=== PATIENT | male | born 1955 | race Caucasian/White ===

== ENCOUNTER 2022-01-01 11:55 | Outpatient (CLI) | payer MEDICARE, SELFPAY | END 2022-01-01 11:56 | disposition home or self-care (01) | LOC: AMB 01-08 20:08 | PROVIDERS: Visit Provider Family Medicine | DX: R53.1 Weakness (principal) | CPT/HCPCS: A0425; A0427 ==

== ENCOUNTER 2022-01-01 12:52 | Inpatient (IN) | payer MEDICARE, SELFPAY ==
[2022-01-01] VITALS (28 sets, daily range): BP systolic 100–169; BP diastolic 60–111; PULSE 91–161; RESP 15–26; TEMP 36.1–36.7; O2SAT 92–95; BMI 28.7; BMI 24.8
--- NOTE | 2022-01-01 13:17 | ED.NURSE ---
ekg done, shows afib 140's. pt swabbed for covid.
--- NOTE | 2022-01-01 13:23 | CRLHL7_ITS ---
For Patients: As a result of the Cures Act, medical imaging exams and procedure reports are released immediately into your electronic medical record. You may view this report before your referring provider. If you have questions, please contact your health care provider. HISTORY: Fall, pain. TECHNIQUE: AP pelvis and 2 views of the left hip. COMPARISON: 12/02/2020. FINDINGS: There is deformity of the left femoral head-neck junction suggesting sequelae of impacted fracture. This appears unchanged, however, as compared to the prior examination and may reflect sequelae of more remote fracture. There is sclerosis within the left femoral head suggesting avascular necrosis. Mild axial hip joint space narrowing on the left. No right hip joint space narrowing. Degenerative changes within the lower lumbar spine. Surgical clips. Vascular calcifications. IMPRESSION: 1. Deformity of the left femoral head-neck junction suggesting sequelae of prior impacted fracture. No change in this deformity as compared to the prior examination suggesting this may reflect a more remote fracture. There is sclerosis within the left femoral head suggesting avascular necrosis. 2. No definite acute fracture seen on these radiographs. Dictated by Rey Mcclelland MD @ 01/01/2022 2:34:31 PM Dictated by: Rey Mcclelland MD @ 01/01/2022 14:34:37 (Electronically Signed)
--- NOTE | 2022-01-01 13:34 | ED.GENADULT ---
HPI - General Adult General Date Seen: 01/01/22 Chief complaint: Fall/Minor Trauma Stated complaint: Dehydration / ETOH Time Seen by Provider: 01/01/22 13:02 Source: patient History of Present Illness HPI narrative: Patient is a 66-year-old male who says he was sleeping on the couch when he rolled off, landing on the floor. He says he has chronic left hip pain which is slightly worse since the fall. Due to weakness and increased hip pain he was unable to get up by himself. He does live with a fiancee who was home at the time. She was unable to assist him. He denies syncope, remembers the fall. He denies any recent illness. He is noted to be tachycardic here, he has not had any recent palpitations, chest pain or unusual shortness of breath. He does have chronic shortness of breath related to his smoking history. He denies any known history of COPD to me. He does tell me that number of years ago he was on inhalers for his lungs, but says that no one has recommended those to him more recently. He has a chronic cough which is unchanged. He denies any recent vomiting or diarrhea. No black or bloody stools. No fevers. 911 was called to assist him in getting up. He has not walked since his fall. He denies any head injury, no loss of consciousness. Denies any back or neck pain. Says that paramedics did not give him any pain medication and he denies need for any medication now. He normally walks with a walker at home. He does continue to smoke. Regular alcohol use. Related Data Home Medications Medication Instructions Recorded Confirmed No Known Home Medications 01/01/22 01/01/22 Allergies Allergy/AdvReac Type Severity Reaction Status Date / Time No Known Drug Allergies Allergy Verified 01/01/22 13:13 Review of Systems Status of ROS: Reports: 10 or more systems reviewed and unremarkable except as noted in History and below [facility] Social History Smoking Status: Smoker, status unknown How often do you have a drink containing alcohol: 4 or more times a week AUDIT-C Alcohol total score: 4 Non-prescribed substance use: denies use Exam Narrative: Exam Narrative: Vital signs as noted above. In general, an alert, somewhat disheveled and unkempt elderly male. Head: Normocephalic, atraumatic. Eyes: Pupils are equal reactive. Extraocular movements are full. Conjunctivae are normal. ENT: Mucous membranes are moist. Neck: Supple without lymphadenopathy. Nontender to palpation. Heart: Tachycardic and irregular. Lungs: Coarse rales bilaterally, scattered wheezes. Increased work of breathing. Abdomen: Soft and nontender. No organomegaly. Extremities: No significant edema bilaterally. Pulses are difficult to palpate in bilateral dorsalis pedis. Large scar noted in the anterior thigh on the left, he says this is from a skin graft. He has some pain with range of motion of the left hip and tenderness laterally.. The right is nontender with free range of motion. Distal lower extremities are atraumatic, nontender. Bilateral upper extremities are nontender to palpation, atraumatic. Neurologic: Patient is alert and oriented to person and place. Speech is fluent. Face is symmetric. Moves all extremities equally. Affect: Flat. Skin: Warm and dry. Well perfused. Dirty. Const: Vital Signs, click to edit/add: Vital Signs - 24 hr 01/01/22 13:09 01/01/22 14:06 Temperature 98.1 F Pulse Rate [Pulse Oximeter] 144 H 144 H Respiratory Rate 22 22 Blood Pressure [Ri ght Upper Arm] 132/106 H 148/108 H Pulse Oximetry 93 94 Oxygen Delivery Me thod Room Air Room Air Documenting provider has reviewed patient's vital signs: yes Course Course Hospital Course: Patient is maintained on monitor and pulse oximetry. An EKG by my review showed atrial fibrillation with a rapid ventricular response, ventricular rate of 156. An IV was established. I have ordered a L of normal saline, labs are pending. Review of his records shows regular alcohol use, history of left hip fracture in 12, followed by hardware removal in 10/2020. I do not see history previously of relation or flutter. X-ray of the left hip by my review shows chronic abnormalities consistent with his previous fracture. I do not see any suggestion of an acute fracture. The final radiology read is as follows:IMPRESSION: 1. Deformity of the left femoral head-neck junction suggesting sequelae of prior impacted fracture. No change in this deformity as compared to the prior examination suggesting this may reflect a more remote fracture. There is sclerosis within the left femoral head suggesting avascular necrosis. 2. No definite acute fracture seen on these radiographs. Patient's nazanin arrived and provided additional history. He apparently has not had any alcohol for the past she says 63 hours. In fact, his blood alcohol here is less than 0.1. She says that he had been drinking half a L a day, and decided to cut down. Patient agrees with this assessment. Apparently, as of his hip fracture in April of 2020, when he was discharged to rehab, he had been off of alcohol completely. He then was drinking just a small amount a day, and has steadily increased to now drinking again a 0.5 L. 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 She does tell me that he has a history of significant withdrawal symptoms. I did order diltiazem for his AFib with rapid ventricular response, although at the time of my last visit with him he had not yet received that. I have also ordered at this time a mg of Ativan given the additional history that he stop drinking over 2 days ago. I think withdrawal may be playing a part in his hemodynamics. He does not appear significantly tremulous however. He is mentating normally. Other labs notable for white blood cell count of 12, hemoglobin of 16. Platelets are normal. INR is 1. Electrolytes are normal, creatinine is 0.6. Blood sugar is 110. His LFTs are elevated, total bilirubin is 2.4. AST is 107, ALT is 70. CRP is 7.5 and BNP is elevated at 42 40. Troponin is 0.1. This is likely secondary to his rapid AFib, but I have ordered a 2nd troponin for 90 minutes after the 1st, will check for significant changes. Based on his x-ray, I think his hip pain is likely not secondary to new fracture, but will order CT to make sure that there is not a subtle fracture hidden in his degenerative changes. His fiancee also offers the history that he has not had a bath since August, which she says is because he is afraid that he will slip and fall if he gets in the bathtub due to his unsteadiness. All things considered, I think the patient will need admission to the hospital for rate control at a minimum. CT scan of the hip pending. medical staff services coordinator likely needed to assess living situation. Second troponin pending. Response to the initial dose of IV Dilt was slowing of his heart rate to the 90s although it did not persist. I gave him a 2nd dose of IV and ordered a dose of oral diltiazem [address] of the left hip was read as follows: IMPRESSION: 1. Remote healed fracture of the left femoral neck. No acute fracture. 2. Ghost tracks within the left proximal femur related to hardware which has been previously removed. 3. There is avascular necrosis of the left femoral head along with degenerative changes of the left hip. Avascular necrosis consistent with his more chronic pain in the left hip, no acute fracture. I did do a chest x-ray given his elevated BNP. He does not have any evidence of pulmonary edema by my review. Final radiology report is as follows:Cardiac silhouette is top-normal in size, similar to prior. Atherosclerotic aorta is again noted. Faint right lower lung opacity. No pleural effusion or pneumothorax. Impression: Faint right lower lung opacity, differential includes atelectasis or infection. Second troponin is stable at 0.09. Clinically, patient does not suggest symptoms of pneumonia at this time, will defer to inpatient Physician regarding chest x-ray findings. Vital Signs Vital signs: Initial Vital Signs Temperature 98.1 F 01/01/22 13:09 Temperature Source Temporal Artery Scan 01/01/22 13:09 Pulse Rate 144 H 01/01/22 13:09 Respiratory Rate 22 01/01/22 13:09 Blood Pressure 132/106 H 01/01/22 13:09 Blood Pressure Mean 114 01/01/22 13:09 Blood Pressure Position Supine 01/01/22 13:09 Pulse Oximetry 93 01/01/22 13:09 Oxygen Delivery Method 01/01/22 13:09 Vital Signs Temperature 98.1 F 01/01/22 13:09 Pulse Rate 144 H 01/01/22 13:09 Respiratory Rate 22 01/01/22 13:09 Blood Pressure 132/106 H 01/01/22 13:09 Pulse Oximetry 93 01/01/22 13:09 Oxygen Delivery Method 01/01/22 13:09 Temperature 98.1 F 01/01/22 13:09 Pulse Rate 144 H 01/01/22 14:06 Respiratory Rate 22 01/01/22 14:06 Blood Pressure 148/108 H 01/01/22 14:06 Pulse Oximetry 94 01/01/22 14:06 Oxygen Delivery Method 01/01/22 14:06 Medical Decision Making Lab Data Labs: Lab Results 01/01/22 01/01/22 01/01/22 Range/Units 13:18 13:30 13:30 WBC 12.15 H (4.50-11.00) K/uL RBC 4.65 (4.30-5.90) m/uL Hgb 15.9 (13.5-17.5) gm/dL Hct 46.7 (37.0-53.0) % MCV 100 (80-100) fL MCH 34 (26-34) pg MCHC 34 (32-36) gm/dL RDW Coeff of Miko 14.6 (11.5-15.5) % Plt Count 159 (140-440) K/uL Neut % (Auto) 83.6 H (42.0-72.0) % Lymph % (Auto) 6.7 L (20-44) % [place] % (Auto) 9.2 (0.0-11.0) % Eos % (Auto) 0.0 (0.0-7.0) % Baso % (Auto) 0.2 (0.0-3.0) % Neut # (Auto) 10.20 H (1.7-7.0) K/uL Lymph # (Auto) 0.80 L (0.90-2.90) K/uL [place] # (Auto) 1.10 H (0.00-0.90) K/UL Eos # (Auto) 0.00 (0.00-0.50) K/uL Baso # (Auto) 0.00 (0.00-0.30) K/uL Abs Immat Gran (auto) 0.04 (0.00-0.30) K/uL INR (0.91-1.10) Sodium 138 (135-149) mmol/L Potassium 3.8 (3.6-5.1) mmol/L Chloride 103 (96-114) mmol/L Carbon Dioxide 24 (20-32) mmol/L BUN 23 (7-30) mg/dL Creatinine 0.6 (0.5-1.5) mg/dL Estimated Creat Clear 77.39 Estimated GFR 106 ml/min Glucose 110 (60-115) mg/dL Calcium 8.4 (8.4-10.6) mg/dL Total Bilirubin 2.4 H (0.1-1.5) mg/dL Direct Bilirubin 0.8 H (0.0-0.5) mg/dL AST 107 H (12-35) U/L ALT 70 H (4-50) U/L Alkaline Phosphatase 101 (40-150) U/L Troponin I (0.01-0.04) ng/mL C-Reactive Protein 7.5 H (0.5-1.0) mg/dL NT-Pro-B Natriuret Pep (0-125) PG/mL Total Protein 6.4 (6.0-8.3) g/dL Albumin 3.5 (3.3-5.0) g/dL Urine Color (Yellow) Urine Appearance (Clear) Urine pH (5.0-8.5) Ur Specific [place] (1.000-1.030) Urine Protein (Negative) Urine Glucose (UA) (Negative) Urine Ketones (Negative) Urine Blood (Negative) Urine Nitrite (Negative) Urine Bilirubin (Negative) Urine Urobilinogen (0.2-1.0) Ur Leukocyte Esterase (Negative) Urine RBC (0-2) Urine WBC (0-5) Ur Squamous Epith Cells (None-Few) Urine Bacteria (None) Ethyl Alcohol < 0.01 L (0.01-0.03) % SARS-CoV-2 (PCR) Negative SARS-CoV-2 (Negative) 01/01/22 01/01/22 01/01/22 Range/Units 13:30 13:30 15:00 WBC (4.50-11.00) K/uL RBC (4.30-5.90) m/uL Hgb (13.5-17.5) gm/dL Hct (37.0-53.0) % MCV (80-100) fL MCH (26-34) pg MCHC (32-36) gm/dL RDW Coeff of Miko (11.5-15.5) % Plt Count (140-440) K/uL Neut % (Auto) (42.0-72.0) % Lymph % (Auto) (20-44) % [place] % (Auto) (0.0-11.0) % Eos % (Auto) (0.0-7.0) % Baso % (Auto) (0.0-3.0) % Neut # (Auto) (1.7-7.0) K/uL Lymph # (Auto) (0.90-2.90) K/uL [place] # (Auto) (0.00-0.90) K/UL Eos # (Auto) (0.00-0.50) K/uL Baso # (Auto) (0.00-0.30) K/uL Abs Immat Gran (auto) (0.00-0.30) K/uL INR 1.02 (0.91-1.10) Sodium (135-149) mmol/L Potassium (3.6-5.1) mmol/L Chloride (96-114) mmol/L Carbon Dioxide (20-32) mmol/L BUN (7-30) mg/dL Creatinine (0.5-1.5) mg/dL Estimated Creat Clear Estimated GFR ml/min Glucose (60-115) mg/dL Calcium (8.4-10.6) mg/dL Total Bilirubin (0.1-1.5) mg/dL Direct Bilirubin (0.0-0.5) mg/dL AST (12-35) U/L ALT (4-50) U/L Alkaline Phosphatase (40-150) U/L Troponin I 0.10 H* 0.09 H* (0.01-0.04) ng/mL C-Reactive Protein (0.5-1.0) mg/dL NT-Pro-B Natriuret Pep 4240 H (0-125) PG/mL Total Protein (6.0-8.3) g/dL Albumin (3.3-5.0) g/dL Urine Color (Yellow) Urine Appearance (Clear) Urine pH (5.0-8.5) Ur Specific [place] (1.000-1.030) Urine Protein (Negative) Urine Glucose (UA) (Negative) Urine Ketones (Negative) Urine Blood (Negative) Urine Nitrite (Negative) Urine Bilirubin (Negative) Urine Urobilinogen (0.2-1.0) Ur Leukocyte Esterase (Negative) Urine RBC (0-2) Urine WBC (0-5) Ur Squamous Epith Cells (None-Few) Urine Bacteria (None) Ethyl Alcohol (0.01-0.03) % SARS-CoV-2 (PCR) (Negative) 01/01/22 Range/Units 15:30 WBC (4.50-11.00) K/uL RBC (4.30-5.90) m/uL Hgb (13.5-17.5) gm/dL Hct (37.0-53.0) % MCV (80-100) fL MCH (26-34) pg MCHC (32-36) gm/dL RDW Coeff of Miko (11.5-15.5) % Plt Count (140-440) K/uL Neut % (Auto) (42.0-72.0) % Lymph % (Auto) (20-44) % [place] % (Auto) (0.0-11.0) % Eos % (Auto) (0.0-7.0) % Baso % (Auto) (0.0-3.0) % Neut # (Auto) (1.7-7.0) K/uL Lymph # (Auto) (0.90-2.90) K/uL [place] # (Auto) (0.00-0.90) K/UL Eos # (Auto) (0.00-0.50) K/uL Baso # (Auto) (0.00-0.30) K/uL Abs Immat Gran (auto) (0.00-0.30) K/uL INR (0.91-1.10) Sodium (135-149) mmol/L Potassium (3.6-5.1) mmol/L Chloride (96-114) mmol/L Carbon Dioxide (20-32) mmol/L BUN (7-30) mg/dL Creatinine (0.5-1.5) mg/dL Estimated Creat Clear Estimated GFR ml/min Glucose (60-115) mg/dL Calcium (8.4-10.6) mg/dL Total Bilirubin (0.1-1.5) mg/dL Direct Bilirubin (0.0-0.5) mg/dL AST (12-35) U/L ALT (4-50) U/L Alkaline Phosphatase (40-150) U/L Troponin I (0.01-0.04) ng/mL C-Reactive Protein (0.5-1.0) mg/dL NT-Pro-B Natriuret Pep (0-125) PG/mL Total Protein (6.0-8.3) g/dL Albumin (3.3-5.0) g/dL Urine Color [place] A (Yellow) Urine Appearance Clear (Clear) Urine pH 6.0 (5.0-8.5) Ur Specific [place] 1.020 (1.000-1.030) Urine Protein 2+ A (Negative) Urine Glucose (UA) Negative (Negative) Urine Ketones 3+ A (Negative) Urine Blood 1+ A (Negative) Urine Nitrite Negative (Negative) Urine Bilirubin 2+ A (Negative) Urine Urobilinogen 4.0 (0.2-1.0) Ur Leukocyte Esterase Negative (Negative) Urine RBC 0-2 (0-2) Urine WBC 0-2 (0-5) Ur Squamous Epith Cells Few (None-Few) Urine Bacteria None (None) Ethyl Alcohol (0.01-0.03) % SARS-CoV-2 (PCR) (Negative) Discharge Plan Discharge Prescriptions: No Action No Known Home Medications
[2022-01-01 13:52] LABS: Basophils Percent Auto 0.2 % (0.0-3.0); Hematocrit 46.7 % (37.0-53.0); Hemoglobin* 15.9 gm/dL (13.5-17.5); Immature Granulocytes Abs Auto 0.04 K/uL (0.00-0.30); Lymphocytes Percent Auto 6.7 % (20-44); Mean Corpuscular HGB Conc 34 gm/dL (32-36); Mean Corpuscular Hemoglobin 34 pg (26-34); Mean Corpuscular Volume 100 fL (80-100); Monocytes Percent Auto 9.2 % (0.0-11.0); Neutrophils Percent Auto 83.6 % (42.0-72.0); Platelet Count* 159 K/uL (140-440); RDW Coefficient of Variation % 14.6 % (11.5-15.5); Red Blood Count 4.65 m/uL (4.30-5.90); White Blood Count* 12.15 K/uL (4.50-11.00)
[2022-01-01 13:56] LABS: Slide Review Reflex No
[2022-01-01 14:11] LABS: Albumin* 3.5 g/dL (3.3-5.0); Chloride* 103 mmol/L (96-114); Potassium* 3.8 mmol/L (3.6-5.1); Sodium* 138 mmol/L (135-149)
[2022-01-01 14:13] LABS: INR 1.02 (0.91-1.10); Prothrombin Time 13.8 Seconds
[2022-01-01 14:14] LABS: Alkaline Phosphatase* 101 U/L (40-150); Aspartate Amino Transferase* 107 U/L (12-35); Bilirubin Direct* 0.8 mg/dL (0.0-0.5); Bilirubin Total* 2.4 mg/dL (0.1-1.5); Blood Urea Nitrogen* 23 mg/dL (7-30); Carbon Dioxide* 24 mmol/L (20-32); Creatinine* 0.6 mg/dL (0.5-1.5); Est. Creatinine Clearance* 77.39; Estimated Glomerular Filt Rate 106 ml/min; Total Protein* 6.4 g/dL (6.0-8.3)
[2022-01-01 14:15] LABS: Alanine Aminotransferase* 70 U/L (4-50); Calcium* 8.4 mg/dL (8.4-10.6); Glucose* 110 mg/dL (60-115)
[2022-01-01 14:17] LABS: C Reactive Protein* 7.5 mg/dL (0.5-1.0)
[2022-01-01 14:18] LABS: Ethanol* < 0.01 % (0.01-0.03)
[2022-01-01 14:23] LABS: NT Pro B Type NatriureticPept* 4240 PG/mL (0-125)
[2022-01-01] MEDS: 0.9 % SODIUM CHLORIDE 1000 ml 1,000 ML IV (14:53)
[2022-01-01] MEDS: dilTIAZem 5 MG/ML inj 15 MG IVP ×2 (14:53→16:20)
--- NOTE | 2022-01-01 14:58 | CRLHL7_ITS ---
For Patients: As a result of the Cures Act, medical imaging exams and procedure reports are released immediately into your electronic medical record. You may view this report before your referring provider. If you have questions, please contact your health care provider. HISTORY: Fall. Pain. TECHNIQUE: Noncontrast CT left hip. COMPARISON: Radiographs 01/01/2022. FINDINGS: There is deformity of the left femoral head-neck junction related to a remote healed fracture. There are several ghost tracks within the left proximal femur related to screws which have been previously removed. Avascular necrosis is noted involving the left femoral head with curvilinear sclerosis. Degenerative changes of the left hip. There is no acute acetabular fracture. The left superior and inferior pubic rami are intact. - On the contralateral right side, there are mild degenerative changes of the hip. 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 Degenerative changes of the sacroiliac joints. IMPRESSION: 1. Remote healed fracture of the left femoral neck. No acute fracture. 2. Ghost tracks within the left proximal femur related to hardware which has been previously removed. 3. There is avascular necrosis of the left femoral head along with degenerative changes of the left hip. Dictated by Rey Mcclelland MD @ 01/01/2022 4:25:32 PM Please note that all CT scans at this facility use dose modulation, iterative reconstruction, and/or weight-based dosing when appropriate to reduce radiation dose to as low as reasonably achievable. Dictated by: Rey Mcclelland MD @ 01/01/2022 16:25:57 (Electronically Signed)
--- NOTE | 2022-01-01 15:11 | CRLHL7_ITS ---
For Patients: As a result of the Cures Act, medical imaging exams and procedure reports are released immediately into your electronic medical record. You may view this report before your referring provider. If you have questions, please contact your health care provider. INDICATION: Shortness of breath TECHNIQUE: Chest 1 view Comparison: 08/20/2021 Findings: Cardiac silhouette is top-normal in size, similar to prior. Atherosclerotic aorta is again noted. Faint right lower lung opacity. No pleural effusion or pneumothorax. Impression: Faint right lower lung opacity, differential includes atelectasis or infection. Dictated by Oumar López MD @ 01/01/2022 4:28:23 PM (Electronically Signed)
[2022-01-01 15:17] LABS: SARS PCR* Negative SARS-CoV-2 (Negative)
[2022-01-01 15:59] LABS: Troponin I* 0.09 ng/mL (0.01-0.04)
[2022-01-01 16:02] LABS: Appearance Urine Clear (Clear); Bilirubin Urine 2+ (Negative); Blood Urine 1+ (Negative); Color Urine Orange (Yellow); Glucose Urine Negative (Negative); Ketones Urine 3+ (Negative); Leukocyte Esterase Urine Negative (Negative); Nitrite Urine Negative (Negative); Protein Urine 2+ (Negative)
[2022-01-01] MEDS: LORazepam 2 MG/ML inj 1 MG IVP (16:20)
[2022-01-01 16:32] LABS: RBC Urine 0-2 (0-2)
[2022-01-01 16:33] LABS: Squamous Epithelial Cell Urine Few (None-Few); WBC Urine 0-2 (0-5)
[2022-01-01] MEDS: dilTIAZem 180 MG CAP (CD) PO (17:18)
--- NOTE | 2022-01-01 17:50 | ED.NURSE ---
1630-Daughter, Mei, updated. Daughter is in route from [place]. 173-Report given to ELENO Murillo, Pt will go to [facility]. Dinner meal tray ordered and will be delivered to [facility]. 174-Pt to [facility] via cart by ELENO Urias.
--- NOTE | 2022-01-01 18:06 | PM.IMHP1 ---
Hospitalist- H&P: HPI History of Present Illness Date Seen: 01/01/22 Chief complaint: Dehydration / ETOH Narrative: Oumar Sands is a 66 year old male who fell off of his couch today although it is difficult to tell how long he was on the floor as pts fiance is not reachable and pt is chronically confused. Pt has been drinking approximately 0.5 L of hard liquor daily for the past 6 months. He has not had any liquor for 63 hours prior to arrival today according to his fiance. Pt was unable to get up after today's fall and his fiance was also unable to get him up. An ambulance was called and the patient was noted to be tachycardic with inability to bear weight on his L hip. Pt had a fall while intoxiated in April of 2020 which resulted in surgery with subsequent removal of hardward in October of 2020. Pt normally walks with a walker but was unable to use his walker today. Upon arrival in the ED. Pt was noted to have atrial fibrillation with a rate of 150 bpm. Pt was treated with IV diltiazem and ativan and his pulse came down into the 90's. Pt's pulse subsequently went back into the 120's which lead to an additional dose of IV diltiazem at 15 mg in the ED with 180 of Diltiazem CD being given. Pt's initial Troponin was 0.1 and follow up 90 minutes later was 0.9. No acute findings were noted on EKG. Pt is not sure how long his heart rate has been fast. Pt describes no chest pain. Pt does chronically smoke cigarrettes and has chronic SOB. Xray of the Left hip is without fracture. CT shows previous fracture with hardward removal and current avascular necrosis. Due to inability to ambulate, new a fib with rvr and inability to care for self, pt subsequently admitted to tele. Review of Systems Status of ROS: Reports: unobtainable due to medical condition [facility] Medical History (Updated 01/01/22 @ 18:52 by Ayden Cook MD) Alcohol abuse Alcoholism Atelectasis Atrial fibrillation with RVR Avascular necrosis of bone of left hip C. difficile colitis Cirrhosis Depression Elevated troponin Hematuria Hidradenitis suppurativa Hip fracture, left Hypertension Left elbow fracture Left fibular fracture Pressure ulcer Skin lesion Thrombocytopenia Tobacco abuse Wernicke-Korsakoff syndrome Surgical History (Updated 01/01/22 @ 18:40 by Basia Vásquez RN) H/O hand surgery H/O hernia repair History of appendectomy History of bowel resection History of skin graft Social History Highest level of school completed/degree received: some college, no degree Smoking Status: Current every day smoker What tobacco products do you use: cigarettes Smoking packs per day: 1.5 Smoking cigarettes per day: 30.0 Years smoked: 40 Smoking pack-years: 60.00 Do you use any of these nicotine containing products: None Second hand tobacco smoke exposure: No How often do you have a drink containing alcohol: 4 or more times a week Alcohol type: hard liquor Alcohol type details: tequila How many standard drinks containing alcohol do you have on a typical day: 1 or 2 How often do you have six or more drinks on one occasion: Weekly AUDIT-C Alcohol total score: 7 Non-prescribed substance use: denies use Caffeine: No service: Yes ([employer]) Meds Home Medications and Allergies Home Medications Medication Instructions Recorded Confirmed Type amlodipine 10 mg tablet mg 01/01/22 History multivitamin 1 tab PO DAILY 01/01/22 01/01/22 History Allergies Allergy/AdvReac Type Severity Reaction Status Date / Time No Known Drug Allergies Allergy Verified 01/01/22 13:13 Exam Narrative: Exam Narrative: EXAM GENERAL: Patient appears chonically disheveled. EYES: No scleral icterus. THYROID: no thyroid nodules or thyromegaly. LYMPH: No supraclavicular or cervical lymphadenopathy. SKIN: Previous incision well healed consistent with previous L hip fracture. Numerous skin graft scars noted on the abd and thighs. Large 3 cm lesion noted on the upper L upper thigh/ perineum Numerous small superficial ulcerations noted in the gluteal cleft. EXT: No dependent lower extremity pedal edema. HEART: Regular rate and rhythm with no murmurs, rubs, or gallops. LUNGS: Clear to auscultation bilaterally with no crackles or wheezes. ABD: Soft, non tender, non distended. PSYCH:Pt overall confused but is able to answer simple questions and shows no focal Neurological defects Const: Vital Signs, click to edit/add: Vital Signs - 24 hr 01/01/22 13:09 01/01/22 14:06 Temperature 98.1 F Pulse Rate [Pulse Oximeter] 144 H 144 H Respiratory Rate 22 22 Blood Pressure [Ri ght Upper Arm] 132/106 H 148/108 H Pulse Oximetry 93 94 Oxygen Delivery Me thod Room Air Room Air Hospitalist - H&P: Result Labs Labs: Short CBC 01/01/22 Range/Units 13:30 WBC 12.15 H (4.50-11.00) K/uL Hgb 15.9 (13.5-17.5) gm/dL Hct 46.7 (37.0-53.0) % Plt Count 159 (140-440) K/uL BMP 01/01/22 13:30 Sodium 138 Potassium 3.8 Chloride 103 Carbon Dioxide 24 BUN 23 Creatinine 0.6 Glucose 110 Calcium 8.4 Cardiac Enzymes 01/01/22 01/01/22 Range/Units 13:30 15:00 Troponin I 0.10 H* 0.09 H* (0.01-0.04) ng/mL Liver Function 01/01/22 Range/Units 13:30 Total Bilirubin 2.4 H (0.1-1.5) mg/dL Direct Bilirubin 0.8 H (0.0-0.5) mg/dL AST 107 H (12-35) U/L ALT 70 H (4-50) U/L Alkaline Phosphatase 101 (40-150) U/L Albumin 3.5 (3.3-5.0) g/dL Urine 01/01/22 Range/Units 15:30 Urine Color [place] A (Yellow) Urine Appearance Clear (Clear) Urine pH 6.0 (5.0-8.5) Ur Specific [place] 1.020 (1.000-1.030) Urine Protein 2+ A (Negative) Urine Glucose (UA) Negative (Negative) ECG Attestation: I personally reviewed and interpreted this ECG as follows: Imaging Chest x-ray: Attestation: I have reviewed the pertinent imaging results. (Atelectasis of Right Lower Lobe vs mild infection) CT scan - pelvis: Attestation: I have reviewed the pertinent imaging results. (CT showed a healed fracture of the femeral head with previous hardware removal. Currently shows avascular necrosis and osteoarthritis. Plain film showed no fractures.) Assessment and Plan Assessment and plan (1) Atrial fibrillation with RVR: Status: Acute Assessment and Plan: Pt has received two IV pushes of Diltiazem 15 mg and has been started on Cardizem CD 180 in the ED. Rate is currently 150. Will start Cardizem drip and try to titrate further cardizem to keep rate under control. Did visit with pharmacy and they approved starting Xarelto 20 mg daily for anticoagulation. Pt placed on Telemetry and will be on CIWA protocol with serial troponins. Repeat BNP in the am as it is 4240. Echocardiogram and TSH ordered. Pt is to be a full code. (2) Avascular necrosis of bone of left hip: Status: Acute Assessment and Plan: Visited with Ortho. Risk factors for developing the avascular necrosis include his alcoholism and smoking. PT/OT as inpt with outpt follow up. May need eventual total hip replacement. (3) Alcohol abuse: Status: Acute Assessment and Plan: CIWA protocol, Banana bag, thiamine and folate. Pt has a history of cirrhosis. Will repeat LFTs in am with consideration of ultrasound. (4) Pressure ulcer: Status: Acute Assessment and Plan: We did clean and treated with emoliant as well as a barrier devise. May need skin care consult. Will update Tdap. We will try to improve his nutrition as well. (5) Skin lesion: Status: Acute Assessment and Plan: This looks like basal or squamous cell carcinoma. Surgery/Dermatology as outpt. (6) Elevated troponin: Status: Acute Assessment and Plan: Will get rate under control and trend. Echo pending (7) Thrombocytopenia: Status: Acute Assessment and Plan: Likely related to chronic ETOH use. Repeat CBC in am. (8) Hematuria: Status: Acute Assessment and Plan: Pt has fallen. Repeat ua prior to discharge. (9) Atelectasis: Status: Acute Assessment and Plan: I don't believe he has pneumonia. Will follow respiratory status as we get his heart rate under control. (10) Tobacco abuse: Status: Acute Assessment and Plan: Nicotine replacement upon request (11) Depression: Status: Acute Assessment and Plan: Pt denies symptoms at this time. (12) Wernicke-Korsakoff syndrome: Status: Acute Assessment and Plan: Banana bag, thiamine and folate (13) Hypertension: Status: Acute Assessment and Plan: Continue Norvasc.
--- NOTE | 2022-01-01 19:22 | PC.NURSE ---
Admission-- Pt admitted to critical care unit. He appears disheveled. He is alert and oriented to person and time, but believed he was in [place]. When informed he was in [place], pt asked, How did I get here? Pt is hypertensive with B/Ps 150s/90s, tachycardic with HR irregular, but as high as 170. Tachypneic with RR 26/28. SPO2 maintained >90% on RA. He c/o some abdominal pain prior to a BM, but denied any other pain. He has had 1 liquid partially incontinent BM since arrival. Coccyx is excoriated and raw with several open areas noted. Area was cleansed, a Mepilex and barrier cream were applied. Redness and a sore were also noted in left side of groin. Telemetry shows a fib with RVR. is aware. Pt is a poor historian and this nurse is unsure how accurate his statements are. Report to ELENO Carlisle.
[2022-01-01] MEDS: dilTIAZem HCL 125 MG in 0.9 % SODIUM CHLORIDE 100 ml 100 ML 15 MG IVPB (19:56)
[2022-01-01] MEDS: LORazepam 2 MG/ML inj IVP ×2 (20:06→23:39)
[2022-01-01 20:07] LABS: Creatine Kinase* 1000 U/L (54-186); Magnesium* 1.5 mg/dL (1.5-2.6)
[2022-01-01] MEDS: 0.9 % SODIUM CHLORIDE 250 ml IV (20:07)
[2022-01-01 20:29] LABS: Troponin I* 0.07 ng/mL (0.01-0.04)
[2022-01-01] MEDS: TETANUS/DIPHTH/PERTUSSIS 0.5 ML SYRINGE IM (21:35)
[2022-01-01] MEDS: RIVAROXABAN 10 MG TABLET 20 MG PO (21:44)
--- NOTE | 2022-01-01 23:57 | PC.NURSE ---
patient requiring 2L O2 NC to keep sats 90%, coarse crackles bilateral base of lungs, wet sounding cough. Dr Cook updated see new orders.
[2022-01-02] VITALS (36 sets, daily range): BP systolic 117–168; BP diastolic 10–156; PULSE 78–106; RESP 18–30; TEMP 35.9–36.6; O2SAT 90–97
[2022-01-02] MEDS: dilTIAZem HCL 125 MG in 0.9 % SODIUM CHLORIDE 100 ml 100 ML 15 MG IVPB (02:56)
[2022-01-02] MEDS: FUROSEMIDE 10 MG/ML inj 20 MG IVP (03:22)
--- NOTE | 2022-01-02 05:44 | PC.NURSE ---
[id number]: patient cooperative with cares, fatigued and spent majority of shift sleeping, no further loose stools this shift, see EMAR for Ativan given and interventions for CIWA scores, tele has shown Afib with initial rate in 160-170s, diltiazem drip has brought rate down to 80-100s. patient tolerating drip well, BPs as charted. patient lungs coarse with increased need for O2 to maintain sats, Dr Cook updated, see orders and changes. Strange patent and draining, urine pink. patient has remained on 1-2L O2 via NC entire shift.
[2022-01-02 07:20] LABS: Basophils Absolute Auto 0.04 K/uL (0.00-0.30); Basophils Percent Auto 0.5 % (0.0-3.0); Eosinophils Absolute Auto 0.11 K/uL (0.00-0.50); Eosinophils Percent Auto 1.3 % (0.0-7.0); Hematocrit 41.4 % (37.0-53.0); Hemoglobin* 14.1 gm/dL (13.5-17.5); Immature Granulocytes Abs Auto 0.04 K/uL (0.00-0.30); Lymphocytes Percent Auto 17.8 % (20-44); Mean Corpuscular HGB Conc 34 gm/dL (32-36); Mean Corpuscular Hemoglobin 35 pg (26-34); Mean Corpuscular Volume 102 fL (80-100); Monocytes Percent Auto 9.7 % (0.0-11.0); Neutrophils Absolute Auto 6.02 K/uL (1.7-7.0); Neutrophils Percent Auto 70.2 % (42.0-72.0); Platelet Count* 129 K/uL (140-440); RDW Coefficient of Variation % 14.5 % (11.5-15.5); Red Blood Count 4.08 m/uL (4.30-5.90); White Blood Count* 8.56 K/uL (4.50-11.00)
[2022-01-02 07:22] LABS: Chloride* 104 mmol/L (96-114); Sodium* 137 mmol/L (135-149)
[2022-01-02 07:25] LABS: Alanine Aminotransferase* 53 U/L (4-50); Alkaline Phosphatase* 91 U/L (40-150); Aspartate Amino Transferase* 66 U/L (12-35); Bilirubin Total* 1.5 mg/dL (0.1-1.5); Blood Urea Nitrogen* 26 mg/dL (7-30); Carbon Dioxide* 28 mmol/L (20-32); Glucose* 121 mg/dL (60-115); Total Protein* 5.9 g/dL (6.0-8.3)
[2022-01-02 07:26] LABS: Calcium* 7.8 mg/dL (8.4-10.6)
[2022-01-02 07:33] LABS: NT Pro B Type NatriureticPept* 1900 PG/mL (0-125)
[2022-01-02 07:37] LABS: Troponin I* 0.04 ng/mL (0.01-0.04)
[2022-01-02 07:43] LABS: Slide Review Reflex No
[2022-01-02 07:45] LABS: Potassium* 2.8 mmol/L (3.6-5.1)
[2022-01-02] MEDS: POTASSIUM BICARB 25 MEQ EFFERVESCENT TAB PO ×6 (08:30→21:21)
[2022-01-02] MEDS: RIVAROXABAN 10 MG TABLET 20 MG PO (08:31)
[2022-01-02] MEDS: dilTIAZem 240 MG CAP (CD) PO (08:31)
[2022-01-02] MEDS: MAGNESIUM OXIDE 400 MG TABLET PO (08:31)
[2022-01-02] MEDS: SODIUM CHLORIDE 0.9 % (FLUSH) 10 ML SYRINGE 5 ML IVF ×2 (08:31→22:04)
[2022-01-02] MEDS: ACETAMINOPHEN 325 MG TABLET 650 MG PO ×2 (08:31→17:46)
[2022-01-02 09:15] LABS: Creatinine* 0.6 mg/dL (0.5-1.5); Est. Creatinine Clearance* 76.35; Estimated Glomerular Filt Rate 106 ml/min
[2022-01-02] MEDS: LORazepam 2 MG/ML inj IVP ×2 (10:04→22:03)
[2022-01-02 10:52] LABS: Creatine Kinase* 528 U/L (54-186)
[2022-01-02] MEDS: dilTIAZem HCL 125 MG in 0.9 % SODIUM CHLORIDE 100 ml 100 ML 10 MG IVPB (12:12)
[2022-01-02] MEDS: 0.9 % SODIUM CHLORIDE 1000 ml 1,000 ML 125 ML IV ×2 (13:03→21:20)
[2022-01-02 14:25] LABS: Potassium* 2.9 mmol/L (3.6-5.1)
--- NOTE | 2022-01-02 15:53 | P.IMPN_ITS ---
Progress Note: A&P Assessment and plan (1) Atrial fibrillation with RVR: Status: Acute Assessment and Plan: Patient has been on Cardizem drip overnight and has started oral Cardizem this morning. Rate is improving now on oral Cardizem with drip. Weaning down on drip. Patient started Xarelto last night for anticoagulation. Duration of atrial fibrillation is unknown, but likely longer than a few days. Outpatient antihypertensive, Norvasc, was held so that we could use Cardizem for rate control. TSH is within normal limits. (2) Alcohol withdrawal: Status: Acute Assessment and Plan: Continue CIWA protocol. He got a banana bag, thiamine, and folate last night. It appears that he is going through some withdrawals today, although mild at this time. (3) Alcohol abuse: Status: Acute (4) Rhabdomyolysis: Status: Acute Assessment and Plan: CK still elevated this morning. Restart IV fluids. Monitor volume status. Recheck CK in the morning. (5) Elevated troponin: Problem details: peak 0.1 Status: Acute Assessment and Plan: Elevated troponin likely secondary to atrial fibrillation. Improving. (6) Avascular necrosis of bone of left hip: Status: Chronic (7) Skin lesion: Problem details: groin Status: Acute Assessment and Plan: Groin lesion. Check RPR for possibility of syphilis chancre. Outpatient follow-up with Dermatology or surgery for biopsy. (8) Atelectasis: Status: Acute Assessment and Plan: Start incentive spirometry. (9) Thrombocytopenia: Status: Acute Assessment and Plan: Suspect related to alcohol abuse. Monitor closely especially since patient will be on Xarelto. (10) Hematuria: Status: Acute Assessment and Plan: Hematuria possibly related to recent fall. Recheck UA in a few days, especially since patient be on Xarelto now. Subjective Time Seen by Provider: 11:20 Date Seen: 01/02/22 Interval history: When I went to see the patient this morning, he was getting an echocardiogram, so I came back little later. After the echocardiogram he was lying in the room with a pillow over part of his face. I asked him about this and he said he was sensitive to light and had a little bit of a headache. He mumbled and spoke wit h very few words, but when I asked him to speak up more he did. He also complained of mild low substernal chest pain. He notes this has been going on a while. The nurses told me that he has a round lesion in his left groin. Making multiple sexually inappropriate comments to multiple staff members. Exam Const: Vital Signs, click to edit/add: Vital Signs - 24 hr 01/01/22 18:01 01/01/22 16:30 01/01/22 17:21 Temperature 98.1 F Pulse Rate Pulse Rate [Left R adial] 131 H Pulse Rate [Pulse Oximeter] 115 H 151 H Respiratory Rate 26 H 20 23 Blood Pressure [Le ft Arm] 146/108 H Blood Pressure [Ri ght Upper Arm] 159/110 H 140/87 H Pulse Oximetry 94 94 94 Oxygen Delivery Me thod Room Air Room Air Oxygen Flow Rate 01/01/22 17:30 01/01/22 19:21 01/01/22 20:15 Temperature 97.5 F L 97 F L Pulse Rate Pulse Rate [Left R adial] 160 H 115 H Pulse Rate [Pulse Oximeter] 161 H Respiratory Rate 20 26 H 22 Blood Pressure [Le ft Arm] 169/110 H 100/85 Blood Pressure [Ri ght Upper Arm] 132/99 H Pulse Oximetry 93 94 94 Oxygen Delivery Me thod Room Air Room Air Nasal Cannula Oxygen Flow Rate 1 01/01/22 19:13 01/01/22 20:21 01/01/22 19:12 Temperature 97 F L 97 F L Pulse Rate 160 H Pulse Rate [Left R adial] 120 H 91 Pulse Rate [Pulse Oximeter] Respiratory Rate 18 18 Blood Pressure [Le ft Arm] 127/69 126/77 Blood Pressure [Ri ght Upper Arm] Pulse Oximetry 92 92 Oxygen Delivery Me thod Nasal Cannula Nasal Cannula Oxygen Flow Rate 1 1 01/01/22 20:31 01/01/22 20:42 01/01/22 21:00 Temperature 97 F L 97 F L Pulse Rate Pulse Rate [Left R adial] 112 H 102 H Pulse Rate [Pulse Oximeter] Respiratory Rate 16 20 Blood Pressure [Le ft Arm] 116/81 134/83 Blood Pressure [Ri ght Upper Arm] Pulse Oximetry 92 92 Oxygen Delivery Me thod Nasal Cannula Nasal Cannula Nasal Cannula Oxygen Flow Rate 1 1 1 01/01/22 22:00 01/01/22 22:41 01/01/22 19:00 Temperature 97 F L 97 F L Pulse Rate Pulse Rate [Left R adial] 114 H 107 H 122 H Pulse Rate [Pulse Oximeter] Respiratory Rate 20 24 Blood Pressure [Le ft Arm] 134/83 127/87 147/111 H Blood Pressure [Ri ght Upper Arm] Pulse Oximetry 92 95 Oxygen Delivery Me thod Nasal Cannula Room Air Oxygen Flow Rate 1 01/01/22 19:30 01/01/22 19:45 01/01/22 20:00 Temperature 97 F L Pulse Rate Pulse Rate [Left R adial] 132 H 145 H 91 Pulse Rate [Pulse Oximeter] Respiratory Rate 24 24 Blood Pressure [Le ft Arm] 169/110 H 138/60 101/85 Blood Pressure [Ri ght Upper Arm] Pulse Oximetry 92 92 Oxygen Delivery Me thod Room Air Nasal Cannula Oxygen Flow Rate 01/01/22 20:05 01/01/22 20:10 01/01/22 20:30 Temperature Pulse Rate Pulse Rate [Left R adial] 94 116 H 103 H Pulse Rate [Pulse Oximeter] Respiratory Rate Blood Pressure [Le ft Arm] 126/77 116/81 119/89 Blood Pressure [Ri ght Upper Arm] Pulse Oximetry Oxygen Delivery Me thod Oxygen Flow Rate 01/01/22 21:30 01/01/22 21:45 01/01/22 23:00 Temperature 97.5 F L Pulse Rate Pulse Rate [Left R adial] 100 105 H 111 H Pulse Rate [Pulse Oximeter] Respiratory Rate 20 Blood Pressure [Le ft Arm] 118/81 134/83 137/96 H Blood Pressure [Ri ght Upper Arm] Pulse Oximetry 93 Oxygen Delivery Me thod Nasal Cannula Oxygen Flow Rate 2 01/01/22 22:56 01/01/22 23:40 01/02/22 00:00 Temperature 98 F 98 F Pulse Rate Pulse Rate [Left R adial] 117 H 104 H Pulse Rate [Pulse Oximeter] Respiratory Rate 22 20 20 Blood Pressure [Le ft Arm] 137/96 H 122/86 Blood Pressure [Ri ght Upper Arm] Pulse Oximetry 93 95 92 Oxygen Delivery Me thod Nasal Cannula Nasal Cannula Nasal Cannula Oxygen Flow Rate 2 2 2 01/02/22 01:00 01/02/22 02:00 01/02/22 03:00 Temperature 97 F L 97.6 F 97 F L Pulse Rate Pulse Rate [Left R adial] 95 97 99 Pulse Rate [Pulse Oximeter] Respiratory Rate 20 20 20 Blood Pressure [Le ft Arm] 121/80 128/80 121/82 Blood Pressure [Ri ght Upper Arm] Pulse Oximetry 91 91 92 Oxygen Delivery Me thod Nasal Cannula Nasal Cannula Nasal Cannula Oxygen Flow Rate 2 2 2 01/02/22 04:00 01/02/22 05:00 01/02/22 06:00 Temperature 97.6 F Pulse Rate Pulse Rate [Left R adial] 97 83 90 Pulse Rate [Pulse Oximeter] Respiratory Rate 20 20 20 Blood Pressure [Le ft Arm] 132/93 H 123/83 Blood Pressure [Ri ght Upper Arm] Pulse Oximetry 91 91 90 Oxygen Delivery Me thod Nasal Cannula Nasal Cannula Nasal Cannula Oxygen Flow Rate 2 2 1 01/02/22 07:28 01/02/22 07:36 01/02/22 07:39 Temperature 97.8 F 97.8 F Pulse Rate Pulse Rate [Left R adial] 98 98 98 Pulse Rate [Pulse Oximeter] Respiratory Rate 28 H 28 H 28 H Blood Pressure [Le ft Arm] 143/98 H 143/98 H Blood Pressure [Ri ght Upper Arm] Pulse Oximetry 94 94 Oxygen Delivery Me thod Nasal Cannula Nasal Cannula Oxygen Flow Rate 2 2 01/02/22 08:40 01/02/22 09:54 01/02/22 09:55 Temperature 97.9 F 97.9 F Pulse Rate Pulse Rate [Left R adial] 106 H 86 Pulse Rate [Pulse Oximeter] Respiratory Rate 28 H 24 Blood Pressure [Le ft Arm] 147/10 H 168/156 H Blood Pressure [Ri ght Upper Arm] Pulse Oximetry 94 92 Oxygen Delivery Me thod Nasal Cannula Nasal Cannula Oxygen Flow Rate 2 2 01/02/22 09:56 01/02/22 10:07 01/02/22 11:07 Temperature 97.9 F 97.9 F 97.4 F L Pulse Rate Pulse Rate [Left R adial] 86 84 105 H Pulse Rate [Pulse Oximeter] Respiratory Rate 24 22 28 H Blood Pressure [Le ft Arm] 168/156 H 122/87 117/66 Blood Pressure [Ri ght Upper Arm] Pulse Oximetry 92 93 93 Oxygen Delivery Me thod Nasal Cannula Nasal Cannula Nasal Cannula Oxygen Flow Rate 2 2 2 01/02/22 11:09 01/02/22 11:39 01/02/22 12:10 Temperature 97.4 F L 96.6 F L Pulse Rate Pulse Rate [Left R adial] 105 H 105 H 89 Pulse Rate [Pulse Oximeter] Respiratory Rate 28 H 28 H 20 Blood Pressure [Le ft Arm] 117/66 139/74 Blood Pressure [Ri ght Upper Arm] Pulse Oximetry 93 93 Oxygen Delivery Me thod Nasal Cannula Nasal Cannula Oxygen Flow Rate 2 2 01/02/22 12:11 01/02/22 13:04 01/02/22 13:07 Temperature 96.6 F L 96.6 F L Pulse Rate Pulse Rate [Left R adial] 89 82 82 Pulse Rate [Pulse Oximeter] Respiratory Rate 20 20 20 Blood Pressure [Le ft Arm] 139/74 129/75 129/75 Blood Pressure [Ri ght Upper Arm] Pulse Oximetry 93 93 93 Oxygen Delivery Me thod Nasal Cannula Nasal Cannula Nasal Cannula Oxygen Flow Rate 2 2 2 01/02/22 07:17 01/02/22 14:00 01/02/22 14:23 Temperature 96.6 F L Pulse Rate 90 Pulse Rate [Left R adial] 79 79 Pulse Rate [Pulse Oximeter] Respiratory Rate 18 18 Blood Pressure [Le ft Arm] 145/90 H 145/90 H Blood Pressure [Ri ght Upper Arm] Pulse Oximetry 94 94 Oxygen Delivery Me thod Nasal Cannula Nasal Cannula Oxygen Flow Rate 2 2 01/02/22 15:06 Temperature 97.0 F L Pulse Rate Pulse Rate [Left R adial] 82 Pulse Rate [Pulse Oximeter] Respiratory Rate 20 Blood Pressure [Le ft Arm] 157/84 H Blood Pressure [Ri ght Upper Arm] Pulse Oximetry 93 Oxygen Delivery Me thod Nasal Cannula Oxygen Flow Rate 2 Documenting provider has reviewed patient's vital signs: yes Common normals: no apparent distress General appearance: cooperative (Reluctant, but ultimately cooperative) and disheveled Orientation/consciousness: Yes awake, Yes oriented to person and Yes oriented to place Neck & C-Spine: Common normals: no JVD Chest: Chest: no tenderness Resp: Auscultation: crackles Laterality: bilateral at the base (Fine) Cardio: Common normals: no JVD GI: Common normals: Normal to inspection, nondistended, normoactive bowel sounds present, soft to palpation and non-tender Palpation: soft Extremity: Right lower extremity: upper leg Right upper leg: inspection (Well- healed site of skin graft on the right thigh) Other: Multiple abrasions and bruises of various stages of healing on over extremities, especially legs. Neuro: Sensorium/orientation: awake, oriented to person and oriented to place Psych: Appearance: disheveled Mood and affect: flat affect and other (Odd) Labs Labs: Laboratory Results - last 24 hr 01/01/22 01/01/22 01/01/22 15:00 15:30 19:43 WBC RBC Hgb Hct MCV MCH MCHC RDW Coeff of Miko Plt Count Neut % (Auto) Lymph % (Auto) [place] % (Auto) Eos % (Auto) Baso % (Auto) Neut # (Auto) Lymph # (Auto) [place] # (Auto) Eos # (Auto) Baso # (Auto) Abs Immat Gran (auto) Sodium Potassium Chloride Carbon Dioxide BUN Creatinine Estimated Creat Clear Estimated GFR Glucose Calcium Magnesium Total Bilirubin AST ALT Alkaline Phosphatase Total Creatine Kinase Troponin I 0.09 H* NT-Pro-B Natriuret Pep Total Protein Albumin TSH 1.880 Urine Color [place] A Urine Appearance Clear Urine pH 6.0 Ur Specific [place] 1.020 Urine Protein 2+ A Urine Glucose (UA) Negative Urine Ketones 3+ A Urine Blood 1+ A Urine Nitrite Negative Urine Bilirubin 2+ A Urine Urobilinogen 4.0 Ur Leukocyte Esterase Negative Urine RBC 0-2 Urine WBC 0-2 Ur Squamous Epith Cells Few Urine Bacteria None 01/01/22 01/01/22 01/02/22 19:43 19:43 06:50 WBC RBC Hgb Hct MCV MCH MCHC RDW Coeff of Miko Plt Count Neut % (Auto) Lymph % (Auto) [place] % (Auto) Eos % (Auto) Baso % (Auto) Neut # (Auto) Lymph # (Auto) [place] # (Auto) Eos # (Auto) Baso # (Auto) Abs Immat Gran (auto) Sodium 137 Potassium 2.8 L* Chloride 104 Carbon Dioxide 28 BUN 26 Creatinine 0.6 Estimated Creat Clear 76.35 Estimated GFR 106 Glucose 121 H Calcium 7.8 L Magnesium 1.5 Total Bilirubin 1.5 AST 66 H ALT 53 H Alkaline Phosphatase 91 Total Creatine Kinase 1000 H 528 H Troponin I 0.07 H* 0.04 NT-Pro-B Natriuret Pep 1900 H Total Protein 5.9 L Albumin 3.0 L TSH Urine Color Urine Appearance Urine pH Ur Specific [place] Urine Protein Urine Glucose (UA) Urine Ketones Urine Blood Urine Nitrite Urine Bilirubin Urine Urobilinogen Ur Leukocyte Esterase Urine RBC Urine WBC Ur Squamous Epith Cells Urine Bacteria 01/02/22 01/02/22 06:50 14:00 WBC 8.56 RBC 4.08 L Hgb 14.1 Hct 41.4 MCV 102 H MCH 35 H MCHC 34 RDW Coeff of Miko 14.5 Plt Count 129 L Neut % (Auto) 70.2 Lymph % (Auto) 17.8 L [place] % (Auto) 9.7 Eos % (Auto) 1.3 Baso % (Auto) 0.5 Neut # (Auto) 6.02 Lymph # (Auto) 1.50 [place] # (Auto) 0.80 Eos # (Auto) 0.11 Baso # (Auto) 0.04 Abs Immat Gran (auto) 0.04 Sodium Potassium 2.9 L* Chloride Carbon Dioxide BUN Creatinine Estimated Creat Clear Estimated GFR Glucose Calcium Magnesium Total Bilirubin AST ALT Alkaline Phosphatase Total Creatine Kinase Troponin I NT-Pro-B Natriuret Pep Total Protein Albumin TSH Urine Color Urine Appearance Urine pH Ur Specific [place] Urine Protein Urine Glucose (UA) Urine Ketones Urine Blood Urine Nitrite Urine Bilirubin Urine Urobilinogen Ur Leukocyte Esterase Urine RBC Urine WBC Ur Squamous Epith Cells Urine Bacteria
--- NOTE | 2022-01-02 16:09 | PC.NURSE ---
Patient told Occupational Therapist that he would like sex for his birthday. When primary nurse is discussing bathing patient, he has asked/requested she join him in the bathtub. Head Machine Feeder presented patient with patient code of conduct and explained that staff would need to be treated respectfully.
[2022-01-02] MEDS: BACITRACIN OINTMENT BULK TUBE 1 APPLIC TOPICAL (16:31)
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
[2022-01-03] VITALS (15 sets, daily range): BP systolic 119–145; BP diastolic 83–104; PULSE 58–103; RESP 16–22; TEMP 36.1–36.6; O2SAT 93–96
[2022-01-03] MEDS: 0.9 % SODIUM CHLORIDE 1000 ml 1,000 ML 125 ML IV (05:19)
--- NOTE | 2022-01-03 06:11 | PC.NURSE ---
[id number]: patient remained in bed this shift, positioned self from side to side, Strange patent draining tex urine, HR remained A fib 60s-100s. maintains sats 90-93% on RA, CIWAs as charted, Ativan per EMAR. patient at times makes comments to nursing staff such as can I have a hug, you are very attractive last night my dreams were very erotic, I hope I can still get an erection with this catheter in, patient reminded to use appropriate conduct with staff and cooperative when asked to stop making these types of comments to staff.
[2022-01-03 07:19] LABS: Basophils Absolute Auto 0.03 K/uL (0.00-0.30); Basophils Percent Auto 0.4 % (0.0-3.0); Eosinophils Absolute Auto 0.17 K/uL (0.00-0.50); Eosinophils Percent Auto 2.4 % (0.0-7.0); Hemoglobin* 13.1 gm/dL (13.5-17.5); Immature Granulocytes Abs Auto 0.04 K/uL (0.00-0.30); Lymphocytes Percent Auto 19.9 % (20-44); Mean Corpuscular HGB Conc 34 gm/dL (32-36); Mean Corpuscular Hemoglobin 35 pg (26-34); Mean Corpuscular Volume 103 fL (80-100); Monocytes Percent Auto 10.6 % (0.0-11.0); Neutrophils Absolute Auto 4.77 K/uL (1.7-7.0); Neutrophils Percent Auto 66.1 % (42.0-72.0); Platelet Count* 133 K/uL (140-440); RDW Coefficient of Variation % 14.5 % (11.5-15.5); Red Blood Count 3.79 m/uL (4.30-5.90)
[2022-01-03 07:23] LABS: Slide Review Reflex No
[2022-01-03 07:28] LABS: Albumin* 2.7 g/dL (3.3-5.0); Chloride* 105 mmol/L (96-114); Sodium* 137 mmol/L (135-149)
[2022-01-03 07:29] LABS: Potassium* 3.3 mmol/L (3.6-5.1)
[2022-01-03 07:31] LABS: Alanine Aminotransferase* 44 U/L (4-50); Alkaline Phosphatase* 85 U/L (40-150); Aspartate Amino Transferase* 54 U/L (12-35); Bilirubin Total* 0.5 mg/dL (0.1-1.5); Blood Urea Nitrogen* 15 mg/dL (7-30); Calcium* 7.7 mg/dL (8.4-10.6); Carbon Dioxide* 29 mmol/L (20-32); Creatine Kinase* 275 U/L (54-186); Creatinine* 0.5 mg/dL (0.5-1.5); Est. Creatinine Clearance* 76.35; Estimated Glomerular Filt Rate 112 ml/min; Glucose* 178 mg/dL (60-115); Total Protein* 5.5 g/dL (6.0-8.3)
[2022-01-03 07:32] LABS: Magnesium* 1.5 mg/dL (1.5-2.6)
[2022-01-03] MEDS: MAGNESIUM OXIDE 400 MG TABLET PO (08:54)
[2022-01-03] MEDS: RIVAROXABAN 10 MG TABLET 20 MG PO (08:54)
[2022-01-03] MEDS: SODIUM CHLORIDE 0.9 % (FLUSH) 10 ML SYRINGE 5 ML IVF ×2 (08:55→21:28)
[2022-01-03] MEDS: dilTIAZem 240 MG CAP (CD) PO (08:57)
--- NOTE | 2022-01-03 13:44 | PC.SOCIAL ---
Met with pt. to discuss discharge plans. Pt. will need intermediate as he is a 2 person transfer. Pt. prefers placement in [place] but there are no beds available. Pt is not interested in pursuing inpatient CD treatment at [facility]. Pt. was reported as a VA to [facility]. The home is currently not safe for pt. to be at. Met with pt.'s daughter Alina at [phone] who drove here from [place] where she lives. She wants to pursue guardianship with [facility] for pt. and is open to any intermediate locally that will accept pt. and preferable [facility] if guardianship goes through by the time pt. is ready for admission. Alina plans to pursue placement for pt. in [place] once he rehabs if she becomes his guardian. Pt. has been to [facility] in the past. A message was left with [facility] on availability, and pt.'s information has been sent to [facility] and [facility] as they have availability. [facility] in [place] is currently full.
--- NOTE | 2022-01-03 15:34 | PC.SOCIAL ---
Received a phone call from Joya at [facility]. Joya informed that [facility] is declining pt. for admission due to not having a long-term bed.
[2022-01-03] MEDS: POTASSIUM BICARB 25 MEQ EFFERVESCENT TAB PO ×2 (16:57→17:50)
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
--- NOTE | 2022-01-03 20:18 | PC.NURSE ---
shift note: LS with course crkls and wet cough. Pt sats on RA 92-94%. Pt up 1/walker. nancie dc'd intact @ 1030. Pt continent of bladder. Pt has multi abrasions all over body. Pt denies pain. IV patent x2. vss stable. updated pt's daughter via phone this avelino.
[2022-01-03] MEDS: MAG HYDROX/ALUMINUM HYD/SIMETH 30 ML ORAL.SUSP 15 ML PO (22:30)
[2022-01-04] VITALS (10 sets, daily range): BP systolic 134–157; BP diastolic 78–121; PULSE 80–132; RESP 16–26; TEMP 36–36.8; O2SAT 94–98
[2022-01-04] MEDS: OMEPRAZOLE 20 MG CAPSULE DR PO ×2 (00:02→20:53)
[2022-01-04] MEDS: LORazepam 2 MG/ML inj IVP ×2 (00:39→01:41)
[2022-01-04] MEDS: ACETAMINOPHEN 325 MG TABLET 650 MG PO (00:39)
[2022-01-04] MEDS: SODIUM CHLORIDE 0.9 % (FLUSH) 10 ML SYRINGE 5 ML IVF ×2 (00:40→20:54)
--- NOTE | 2022-01-04 06:23 | PC.NURSE ---
Shift Note 23-: Pt cooperative and appreciative with care. HR and respirations elevated at times corresponding to anxiety and compulsivity. Pt up to BR several times throughout the night with copious amounts of unmeasured and incontinent urinary output. CIWA score 13, Ativan administered with little to no effect. Pt calmed after second dose and able to sleep. Pt c/o heartburn at the start of shift, with little to no relief from mediations until Pt drank a Sprite and was able to belch a significant amount.
[2022-01-04] MEDS: RIVAROXABAN 10 MG TABLET 20 MG PO (08:16)
[2022-01-04] MEDS: dilTIAZem 240 MG CAP (CD) PO (08:16)
[2022-01-04] MEDS: MAGNESIUM OXIDE 400 MG TABLET PO (08:16)
[2022-01-04 08:36] LABS: Hemoglobin A1C* 5.11 % (0-5.6)
--- NOTE | 2022-01-04 12:08 | PC.SOCIAL ---
Spoke with [facility] and pt.'s daughter Alina at [phone], the [facility] is not going to pursue guardianship but the daughter is pursuing it on her own with the litigation attorney's office. Guardianship should go through today by 1pm appointing Alina as the guardian. She will bring in the paperwork when it goes through. Alina prefers pt. to discharge to [facility] so he can get PT and OT and chemical dependency treatment as well. A message was left again for [facility] that pt. is medically ready and could discharge today. Still waiting on an acceptance. If [facility] does not accept [facility] is still assessing.
[2022-01-04 12:48] LABS: Rapid Plasma Reagin (RPR) Non Reactive (Non Reactive)
--- NOTE | 2022-01-04 14:32 | PC.SOCIAL ---
[facility] cannot accept pt. due to his insurance being out of network. Nursing Homes in Network: [facility] (no beds), the [facility] and the [facility] [place]. [facility] [phone], fax#[phone] message left and information sent. [facility] [phone], information has been sent to assess. [facility] [phone], -information sent. Message left with the [facility] [phone] and [phone] [facility] location.
--- NOTE | 2022-01-04 15:18 | PC.NURSE ---
PATIENT VOIDING FREQUENTLY AT BEGINNING OF SHIFT AND INCONTINENT AND URINATING ON THE FLOOR. DOES NOT USE CALL LIGHT BUT CHAIR AND BED ALARM ON. PATIENT DENIED PAIN AND STATED REALLY MILD NAUSEA AND TOLERATING REGULAR DIET. UP WITH SBA, WALKER AND GAIT BELT. SLEPT IN SMALL INCREMENTS THROUGHOUT THE DAY.
--- NOTE | 2022-01-04 17:47 | PM.IMPN1 ---
Progress Note: A&P Assessment and plan (1) Atrial fibrillation with RVR: Status: Acute Assessment and Plan: Rate controlled on oral Cardizem. Anticoagulation with Xarelto. (2) Alcohol withdrawal: Status: Acute Assessment and Plan: Little more confused today. Unclear if he is going through withdrawals or if this is part of his more chronic Korsakoff's syndrome. Continue CIWA protocol. (3) Alcohol abuse: Status: Acute (4) Rhabdomyolysis: Status: Acute (5) Elevated troponin: Problem details: peak 0.1 Status: Acute Assessment and Plan: Elevated troponin likely secondary to atrial fibrillation. (6) Avascular necrosis of bone of left hip: Status: Chronic Assessment and Plan: Continue PT and OT. (7) Skin lesion: Problem details: groin Status: Acute Assessment and Plan: Groin lesion. RPR negative. Outpatient follow-up with Dermatology or surgery for biopsy. (8) Atelectasis: Status: Acute Assessment and Plan: Continue incentive spirometry. (9) Thrombocytopenia: Status: Acute Assessment and Plan: Suspect related to alcohol abuse. Recheck in morning (10) Hematuria: Status: Acute Assessment and Plan: Hematuria possibly related to recent fall. Patient now on Xarelto. Repeat urinalysis is pending. 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 Persistent tremor. Status: Acute Assessment and Plan: Emergency guardianship in process. Subjective Time Seen by Provider: 11:14 Date Seen: 01/04/22 Interval history: When I walked in, I introduced myself as I do every day, and Oumar asked me why I had to see him today. I told him that I see every patient in the hospital every day and he said he still did not understand why had to see him. He did allow me to examine him. He denied any concerns. Exam Narrative: Exam Narrative: General: No acute distress. Awake, alert, oriented to self and place. No pallor. Oropharynx: Clear. Mucous membranes moist. Cardiovascular: Irregularly irregular. No murmurs, gallops, or rubs. Respiratory: Clear to auscultation bilaterally. No wheezes or crackles. Abdomen: Bowel sounds present. Soft, nondistended, nontender. Const: Vital Signs, click to edit/add: Vital Signs - 24 hr 01/03/22 19:00 01/03/22 20:00 01/03/22 23:00 Temperature 97.6 F 97.6 F Pulse Rate 103 H Pulse Rate [Left R adial] 86 86 Respiratory Rate 18 18 Blood Pressure [Le ft Arm] 119/85 119/85 Pulse Oximetry 95 95 Oxygen Delivery Me thod Room Air Room Air Oxygen Flow Rate 2 01/03/22 23:00 01/03/22 23:00 01/04/22 00:00 Temperature 97.3 F L 97.3 F L Pulse Rate Pulse Rate [Left R adial] 95 95 103 H Respiratory Rate 22 Blood Pressure [Le ft Arm] 139/86 139/86 Pulse Oximetry 96 96 Oxygen Delivery Me thod Room Air Oxygen Flow Rate 01/04/22 01:39 01/04/22 03:05 01/04/22 05:00 Temperature 97.6 F 97.6 F 97.6 F Pulse Rate Pulse Rate [Left R adial] 132 H 105 H 84 Respiratory Rate 20 26 H 20 Blood Pressure [Le ft Arm] 139/121 H 150/94 H 150/94 H Pulse Oximetry 95 97 97 Oxygen Delivery Me thod Room Air Room Air Room Air Oxygen Flow Rate 01/04/22 07:34 01/04/22 08:00 01/04/22 08:00 Temperature 97.3 F L Pulse Rate 84 Pulse Rate [Left R adial] 84 100 Respiratory Rate 20 20 Blood Pressure [Le ft Arm] 152/109 H Pulse Oximetry 97 Oxygen Delivery Me thod Room Air Oxygen Flow Rate 01/04/22 08:00 01/04/22 12:00 01/04/22 12:00 Temperature 97.3 F L 98.2 F 98.2 F Pulse Rate Pulse Rate [Left R adial] 100 80 80 Respiratory Rate 20 18 18 Blood Pressure [Le ft Arm] 152/109 H 157/105 H 157/105 H Pulse Oximetry 97 97 97 Oxygen Delivery Me thod Room Air Room Air Room Air Oxygen Flow Rate 01/04/22 17:10 Temperature 96.8 F L Pulse Rate Pulse Rate [Left R adial] 88 Respiratory Rate 16 Blood Pressure [Le ft Arm] 134/78 Pulse Oximetry 94 Oxygen Delivery Me thod Room Air Oxygen Flow Rate Documenting provider has reviewed patient's vital signs: yes Labs Labs: Laboratory Results - last 24 hr 01/03/22 01/04/22 06:45 07:20 Hemoglobin A1c 5.11 RPR Screen Non Reactive
[2022-01-04 19:17] LABS: Appearance Urine Clear (Clear); Bilirubin Urine Negative (Negative); Blood Urine Negative (Negative); Color Urine Yellow (Yellow); Glucose Urine Negative (Negative); Ketones Urine Negative (Negative); Leukocyte Esterase Urine Negative (Negative); Nitrite Urine Negative (Negative); Protein Urine Negative (Negative); Specific Gravity Urine 1.015 (1.000-1.030); Urobilinogen Urine 0.2 (0.2-1.0); pH Urine 7.5 (5.0-8.5)
--- NOTE | 2022-01-04 22:40 | PC.NURSE ---
Shift [id number]- Patient seems to nap on and off throughout shift. He is up to chair for supper and some of the evening. He denies pain. Rather than use call light, he sets of chair and bed alarms, often due to needing to use bathroom. He is voiding often and incontinent often. Appetite is intact.
[2022-01-05 03:00] VITALS: BP 157/87; PULSE 85; RESP 16; TEMP 36.5; O2SAT 95
--- NOTE | 2022-01-05 06:05 | PC.NURSE ---
Shift Note -: Pt pleasant and cooperative, VSS, afebrile, LS clear, BS active. Pt up to BR several times throughout the night soaking brief insert each time as well as urinating in the toilet. Pt does not use call light appropriately, setting off the bed alarm and found up walking in the room each time he needs the BR. Pt denies pain. pt removed his PIV dressing in his left hand during the night partially pulling out the catheter, PIV was removed from that site and replaced in the left forearm.
[2022-01-05 07:00] VITALS: BP 149/94; PULSE 96; RESP 20; TEMP 36.6; O2SAT 99
[2022-01-05 07:13] LABS: Basophils Absolute Auto 0.05 K/uL (0.00-0.30); Basophils Percent Auto 0.7 % (0.0-3.0); Eosinophils Absolute Auto 0.19 K/uL (0.00-0.50); Eosinophils Percent Auto 2.6 % (0.0-7.0); Hematocrit 38.9 % (37.0-53.0); Hemoglobin* 13.3 gm/dL (13.5-17.5); Immature Granulocytes Abs Auto 0.07 K/uL (0.00-0.30); Lymphocytes Percent Auto 19.7 % (20-44); Mean Corpuscular HGB Conc 34 gm/dL (32-36); Mean Corpuscular Hemoglobin 35 pg (26-34); Mean Corpuscular Volume 103 fL (80-100); Monocytes Percent Auto 14.3 % (0.0-11.0); Neutrophils Absolute Auto 4.52 K/uL (1.7-7.0); Neutrophils Percent Auto 61.7 % (42.0-72.0); Platelet Count* 187 K/uL (140-440); RDW Coefficient of Variation % 14.3 % (11.5-15.5); Red Blood Count 3.79 m/uL (4.30-5.90); White Blood Count* 7.32 K/uL (4.50-11.00)
[2022-01-05 07:31] LABS: Slide Review Reflex No
[2022-01-05 07:32] LABS: Chloride* 103 mmol/L (96-114); Potassium* 3.3 mmol/L (3.6-5.1); Sodium* 139 mmol/L (135-149)
[2022-01-05 07:35] LABS: Blood Urea Nitrogen* 11 mg/dL (7-30); Carbon Dioxide* 30 mmol/L (20-32); Creatine Kinase* 88 U/L (54-186); Creatinine* 0.5 mg/dL (0.5-1.5); Est. Creatinine Clearance* 76.35; Estimated Glomerular Filt Rate 112 ml/min; Glucose* 105 mg/dL (60-115)
[2022-01-05 07:36] LABS: Calcium* 8.4 mg/dL (8.4-10.6)
[2022-01-05] MEDS: dilTIAZem 240 MG CAP (CD) PO (08:47)
[2022-01-05] MEDS: MAGNESIUM OXIDE 400 MG TABLET PO (08:47)
[2022-01-05] MEDS: RIVAROXABAN 10 MG TABLET 20 MG PO (08:47)
[2022-01-05] MEDS: SODIUM CHLORIDE 0.9 % (FLUSH) 10 ML SYRINGE 5 ML IVF ×2 (08:48→20:11)
[2022-01-05] MEDS: POTASSIUM BICARB 25 MEQ EFFERVESCENT TAB PO (09:34)
[2022-01-05 11:00] VITALS: BP 158/96; PULSE 95; RESP 22; TEMP 37.1; O2SAT 99
--- NOTE | 2022-01-05 13:43 | PC.SOCIAL ---
Addendum entered by LLIY Brown 01/05/22 14:18: Spoke with pt.'s daughter who states pt. has limited funds and would not be able to afford the out of network pay for [facility]. She picked up an [place] application for pt. today. [facility] called back and they do not have any availability. Addendum entered by LILY Brown 01/05/22 13:59: [facility] has pt[facility]s information but they are full until next week. NO return calls from [facility], [facility] [place] [facility] and [facility]. [facility] can accept pt. but they are out of network with his insurance and pt. would need to pay $150 for days 1-16, $250 for days 17-30 and $0 for days 31-100 pending authorization for more days. A message was left with pt.'s daughter on the coverage with [facility]. Original Note: Inquired on SNF beds according to [facility] in [place] at [phone], [facility] in [place] at [phone], [facility] in [place], [facility] at [phone] and [facility] in [place] at [phone], . Messages left with all facilities. [facility] called back and said they have no openings until next week. [facility] in [place] has an opening and is assessing.
--- NOTE | 2022-01-05 14:54 | PC.NURSE ---
End of Shift: Patient pleasant and cooperative. Patient was alert and oriented to place, person, day, month, year, and off by one day for date. Patient is vitally stable, lungs clear, BS WNL, IV SL. Patient has been incontinent of bowel and bladder, starting after 2pm patient has used the toilet twice to urinate. Patient is 1 assist, walker, gb and has been up in chair for majority of day. Patient tolerating regular and denied pain.
--- NOTE | 2022-01-05 15:28 | PM.IMPN1 ---
Progress Note: A&P Assessment and plan (1) Atrial fibrillation with RVR: Status: Acute Assessment and Plan: Rate controlled on oral Cardizem. Anticoagulation with Xarelto. (2) Alcohol withdrawal: Status: Acute Assessment and Plan: Appears back to baseline again, chronic Korsakoff's syndrome. Stop CIWA tomorrow if scores continue to be low. (3) Alcohol abuse: Status: Acute (4) Rhabdomyolysis: Status: Acute Assessment and Plan: Resolved (5) Elevated troponin: Problem details: peak 0.1 Status: Acute Assessment and Plan: Elevated troponin likely secondary to atrial fibrillation. (6) Avascular necrosis of bone of left hip: Status: Chronic Assessment and Plan: Continue PT and OT. Discharge to SNF when available (7) Skin lesion: Problem details: groin. RPR negative 01/03/2022 Status: Acute Assessment and Plan: Groin lesion. RPR negative. Outpatient follow-up with Dermatology or surgery for biopsy. (8) Atelectasis: Status: Acute Assessment and Plan: Continue incentive spirometry. (9) Thrombocytopenia: Status: Acute Assessment and Plan: Suspect related to alcohol abuse. Resolved. (10) Hematuria: Status: Acute Assessment and Plan: Hematuria possibly related to recent fall. Patient now on Xarelto. Repeat urinalysis is negative, no blood. (11) Cirrhosis: Status: Chronic Assessment and Plan: Recommended complete avoidance of alcohol. 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 Persistent tremor. Status: Acute Assessment and Plan: Emergency guardianship in process. Subjective Time Seen by Provider: 10:00 Date Seen: 01/05/22 Interval history: Wanted to know when he could go home and why he couldn't just go home now. I discussed his need for therapy and rehab and that his home and him being at home would not be safe for him. We discussed how he had fallen at home and was unable to get help, resulting in him being on the floor for a very long time and being confused and lethargic on admission. He did see how this would be an unsafe situation. I also told him that I was waiting for the court to decide his emergency guardianship. Exam Narrative: Exam Narrative: General: No acute distress. Awake, alert, oriented to self and place. No pallor. Oropharynx: Clear. Mucous membranes moist. Cardiovascular: Irregularly irregular. No murmurs, gallops, or rubs. Respiratory: Clear to auscultation bilaterally. No wheezes or crackles. Abdomen: Bowel sounds present. Soft, nondistended, nontender. Extremities: No edema. Const: Vital Signs, click to edit/add: Vital Signs - 24 hr 01/04/22 17:10 01/04/22 19:25 01/04/22 23:00 Temperature 96.8 F L 97.2 F L 97.2 F L Pulse Rate [Left R adial] 88 92 99 Respiratory Rate 16 16 16 Blood Pressure [Le ft Arm] 134/78 140/82 H 143/99 H Pulse Oximetry 94 95 98 Oxygen Delivery Me thod Room Air Room Air Room Air 01/04/22 23:00 01/05/22 03:00 01/05/22 07:00 Temperature 97.7 F 97.9 F Pulse Rate [Left R adial] 99 85 96 Respiratory Rate 16 16 20 Blood Pressure [Le ft Arm] 157/87 H 149/94 H Pulse Oximetry 95 99 Oxygen Delivery Me thod Room Air Room Air 01/05/22 07:00 01/05/22 11:00 Temperature 98.7 F Pulse Rate [Left R adial] 96 95 Respiratory Rate 20 22 Blood Pressure [Le ft Arm] 158/96 H Pulse Oximetry 99 Oxygen Delivery Me thod Room Air Documenting provider has reviewed patient's vital signs: yes Labs Labs: Laboratory Results - last 24 hr 01/04/22 01/05/22 01/05/22 00:15 06:52 06:52 WBC 7.32 RBC 3.79 L Hgb 13.3 L Hct 38.9 MCV 103 H MCH 35 H MCHC 34 RDW Coeff of Miko 14.3 Plt Count 187 Neut % (Auto) 61.7 Lymph % (Auto) 19.7 L [place] % (Auto) 14.3 H Eos % (Auto) 2.6 Baso % (Auto) 0.7 Neut # (Auto) 4.52 Lymph # (Auto) 1.40 [place] # (Auto) 1.00 H Eos # (Auto) 0.19 Baso # (Auto) 0.05 Abs Immat Gran (auto) 0.07 Sodium 139 Potassium 3.3 L Chloride 103 Carbon Dioxide 30 BUN 11 Creatinine 0.5 Estimated Creat Clear 76.35 Estimated GFR 112 Glucose 105 Calcium 8.4 Total Creatine Kinase 88 Urine Color Yellow Urine Appearance Clear Urine pH 7.5 Ur Specific [place] 1.015 Urine Protein Negative Urine Glucose (UA) Negative Urine Ketones Negative Urine Blood Negative Urine Nitrite Negative Urine Bilirubin Negative Urine Urobilinogen 0.2 Ur Leukocyte Esterase Negative
[2022-01-05 15:50] VITALS: BP 135/78; PULSE 77; RESP 20; TEMP 36.9; O2SAT 94
[2022-01-05] MEDS: BACITRACIN OINTMENT BULK TUBE 1 APPLIC TOPICAL (17:23)
--- NOTE | 2022-01-05 18:49 | PC.NURSE ---
End of shift. pt has been tried and sleep. no pain. he got a nicotine inhaler. he is up with and a walker . he is on fall precautions. bed and chair alarms are on. he is eating and drinking and voiding. he has been continent. his daughter was here.
[2022-01-05 19:00] VITALS: BP 149/94; PULSE 97; RESP 20; TEMP 36.3; O2SAT 97
[2022-01-05] MEDS: OMEPRAZOLE 20 MG CAPSULE DR PO (20:11)
[2022-01-05] MEDS: ACETAMINOPHEN 325 MG TABLET 650 MG PO (20:11)
[2022-01-05 23:00] VITALS: BP 139/86; PULSE 93; RESP 20; TEMP 36.4; O2SAT 96
[2022-01-06] VITALS (9 sets, daily range): BP systolic 142–155; BP diastolic 85–91; PULSE 77–99; RESP 20–22; TEMP 36.1–36.9; O2SAT 92–99
[2022-01-06] MEDS: ACETAMINOPHEN 325 MG TABLET 650 MG PO (03:27)
--- NOTE | 2022-01-06 05:41 | PC.NURSE ---
[id number]: Patient cooperative with cares. SBA w/walker. Up frequently to BR to urinate. Continent. Verbalized frustration over POC, stating I want to go home. PRN Tylenol administered x2 for headache.
[2022-01-06] MEDS: MAGNESIUM OXIDE 400 MG TABLET PO (08:43)
[2022-01-06] MEDS: POTASSIUM CHLORIDE 10 MEQ CAPSULE ER 20 MEQ PO ×2 (08:43→17:51)
[2022-01-06] MEDS: dilTIAZem 240 MG CAP (CD) PO (08:43)
[2022-01-06] MEDS: SODIUM CHLORIDE 0.9 % (FLUSH) 10 ML SYRINGE 5 ML IVF ×2 (08:44→20:17)
[2022-01-06] MEDS: RIVAROXABAN 10 MG TABLET 20 MG PO (08:44)
--- NOTE | 2022-01-06 09:28 | PM.IMPN1 ---
Progress Note: A&P Assessment and plan (1) Atrial fibrillation with RVR: Problem details: On Diltiazem for rate control and rivaroxaban for anticoagulation. Status: Acute (2) Alcohol withdrawal: Status: Acute Assessment and Plan: Has not required benzodiazepines in last 48 hours. (3) Alcohol abuse: Status: Acute (4) Rhabdomyolysis: Status: Acute Assessment and Plan: Resolved at this time (5) Elevated troponin: Problem details: peak 0.1, asymptomatic, TTE completed 01/02: 1. Normal LV size, normal wall thickness, normal global systolic function with an estimated EF of 55 - 60%. 2. Basal inferior segment and basal septum segment are abnormal. 3. Right ventricular cavity size is mildly enlarged, global systolic RV function is normal. 4. The aortic valve is trileaflet and sclerotic, no stenosis and no regurgitation. 5. Mildly enlarged left atrium. 6. The ascending aorta is dilated with a maximal diameter of 4.0 cm. Status: Acute Assessment and Plan: Outpatient Cardiology f/u. (6) Thrombocytopenia: Status: Acute Assessment and Plan: Improved with normal platelets at this time. (7) Cirrhosis: Status: Chronic (8) Wernicke-Korsakoff syndrome: Problem details: Altered mental status with lethargy and difficulty speaking on admission that improved after banana bag. Persistent tremor. Daughter has applied for emergency guardianship for placement and dispo planning. Status: Acute Assessment and Plan: Stable, at baseline. (9) Hypokalemia: Status: Acute Assessment and Plan: Continue to replace, follow lytes. Plan Patient is stable at this time, awaiting placement. Chronic conditions as noted above are optimized, continue anticoagulation with rivaroxaban. Will need outpatient cardiology follow-up upon discharge. Appreciate input from PT, OT, and social work regarding dispo planning. Subjective Date Seen: 01/06/22 Interval history: Oumar has no concerns for the hospitalist team this morning. He specifically denies pain or any other concerns. He has not had any elevated CIWA scores for > 24 hours. Exam Narrative: Exam Narrative: GEN: Alert and laying comfortably in bed, speaking in full sentences HEENT: Normal external ears, EOMIs bilaterally CV: Rate controlled atrial fibrillation without concerning murmurs, rubs, or gallops R: LCTA bilaterally without concerning wheezing, rales, or rhonchi Ext: wwp, no concerning edema Skin: Scattered bruising without any other concerning skin lesions on extremities Neuro: Nonfocal Psych: Appropriate Const: Vital Signs, click to edit/add: Vital Signs - 24 hr 01/05/22 11:00 01/05/22 15:50 01/05/22 15:50 Temperature 98.7 F 98.4 F 98.4 F Pulse Rate [Left R adial] 95 77 77 Respiratory Rate 22 20 20 Blood Pressure [Le ft Arm] 158/96 H 135/78 135/78 Pulse Oximetry 99 94 94 Oxygen Delivery Me thod Room Air Room Air Room Air Oxygen Flow Rate 2 01/05/22 15:50 01/05/22 19:00 01/05/22 19:00 Temperature 97.3 F L 97.3 F L Pulse Rate [Left R adial] 77 97 97 Respiratory Rate 20 20 20 Blood Pressure [Le ft Arm] 149/94 H 149/94 H Pulse Oximetry 97 97 Oxygen Delivery Me thod Room Air Room Air Oxygen Flow Rate 2 01/05/22 23:00 01/05/22 23:00 01/05/22 23:00 Temperature 97.5 F L 97.5 F L Pulse Rate [Left R adial] 93 93 93 Respiratory Rate 20 20 Blood Pressure [Le ft Arm] 139/86 139/86 Pulse Oximetry 96 96 Oxygen Delivery Me thod Room Air Room Air Oxygen Flow Rate 01/06/22 02:51 01/06/22 03:00 01/06/22 07:10 Temperature 98.2 F 98.2 F 98.0 F Pulse Rate [Left R adial] 99 99 82 Respiratory Rate 20 20 22 Blood Pressure [Le ft Arm] 147/89 H 147/89 H 155/91 H Pulse Oximetry 96 96 99 Oxygen Delivery Me thod Room Air Room Air Room Air Oxygen Flow Rate 0 01/06/22 07:10 01/06/22 07:10 01/06/22 08:11 Temperature 98.0 F 98.0 F Pulse Rate [Left R adial] 82 82 Respiratory Rate 22 22 Blood Pressure [Le ft Arm] 155/91 H Pulse Oximetry 99 Oxygen Delivery Me thod Room Air Oxygen Flow Rate 0
--- NOTE | 2022-01-06 13:02 | PC.SOCIAL ---
[facility] in [place] declined pt. stating they have been having issues with [facility] not paying for residents they admit with that insurance. [facility] still has a bed and can accept if pt. submits MA application with proof and is eligible for MA. Daughter to arrive around 1 to fill out the MA application and is bringing income proofs.
--- NOTE | 2022-01-06 16:04 | PC.SOCIAL ---
Met with pt.'s daughter Mei at [phone] and filled out MA application and faxed in with income proof to [facility] and [facility] of [place] to review. Waiting for call back from [facility] if they will accept pt. with the MA application and income proof. [facility] is also assessing pt. for short-term rehab. Pt. has [facility] for short-term rehab coverage but would need MA after to stay in a SNF.
--- NOTE | 2022-01-06 18:28 | PC.NURSE ---
End of shift. pt has been pleasant. he has been tired and sleepy/ no pain/ :? Patient cooperative with cares.? SBA w/walker.? Up frequently to BR to urinate.? Continent.? alarms are off. pt is steady with walker and alarms was making him mad. . ? he is eating and drinking and voiding. ?.? his daughter was here.? SL is patent.
[2022-01-06] MEDS: OMEPRAZOLE 20 MG CAPSULE DR PO (20:17)
[2022-01-07] VITALS (9 sets, daily range): BP systolic 130–160; BP diastolic 79–93; PULSE 79–102; RESP 16–20; TEMP 36.1–36.7; O2SAT 94–99
--- NOTE | 2022-01-07 07:02 | PC.NURSE ---
[id number]: Patient pleasant and cooperative. Up independent in room w/walker. Urinary frequency less than previous night. Appeared to rest well during noc. Denies pain. Denies N/V.
[2022-01-07 07:30] LABS: Chloride* 100 mmol/L (96-114); Potassium* 4.2 mmol/L (3.6-5.1); Sodium* 138 mmol/L (135-149)
[2022-01-07 07:33] LABS: Carbon Dioxide* 32 mmol/L (20-32); Creatinine* 0.7 mg/dL (0.5-1.5); Est. Creatinine Clearance* 76.35; Estimated Glomerular Filt Rate 101 ml/min
[2022-01-07 07:34] LABS: Blood Urea Nitrogen* 16 mg/dL (7-30); Calcium* 9.1 mg/dL (8.4-10.6); Glucose* 100 mg/dL (60-115)
--- NOTE | 2022-01-07 08:22 | CRLHL7_ITS ---
For Patients: As a result of the Cures Act, medical imaging exams and procedure reports are released immediately into your electronic medical record. You may view this report before your referring provider. If you have questions, please contact your health care provider. INDICATION: WHEEZING TECHNIQUE: Chest 1 view COMPARISON: 01/01/2022 FINDINGS: Cardiovascular and mediastinum: Mild prominence of the cardiac silhouette with slight tortuosity of the aorta. Vascular calcifications. Lungs and pleural spaces: Lungs are clear. No sign of infiltrate or mass. No sign of pleural effusion. No pneumothorax. Bones and soft tissues: No significant findings. IMPRESSION: No acute findings. Dictated by Oumar Hernandez MD @ 01/07/2022 8:50:24 AM (Electronically Signed)
--- NOTE | 2022-01-07 08:22 | PM.IMPN1 ---
Progress Note: A&P Assessment and plan (1) Atrial fibrillation with RVR: Problem details: On Diltiazem for rate control and Rivaroxaban for anticoagulation. Status: Acute Assessment and Plan: Quiescent. (2) Alcohol abuse: Status: Acute Assessment and Plan: Has completed withdrawal, no elevated CIWA scores for greater than 2 days. Understands importance of alcohol cessation on discharge. (3) Rhabdomyolysis: Status: Acute Assessment and Plan: resolved (4) Elevated troponin: Problem details: peak 0.1, asymptomatic. TTE completed 01/02: 1. Normal LV size, normal wall thickness, normal global systolic function with an estimated EF of 55 - 60%. 2. Basal inferior segment and basal septum segment are abnormal. 3. Right ventricular cavity size is mildly enlarged, global systolic RV function is normal. 4. The aortic valve is trileaflet and sclerotic, no stenosis and no regurgitation. 5. Mildly enlarged left atrium. 6. The ascending aorta is dilated with a maximal diameter of 4.0 cm. Status: Acute Assessment and Plan: Outpatient cardiology follow-up if within goals of care (5) Cirrhosis: Status: Chronic Assessment and Plan: With resultant thrombocytopenia, macrocytic anemia, and elevated AST (6) Wernicke-Korsakoff syndrome: Problem details: Altered mental status with lethargy and difficulty speaking on admission that improved after banana bag. Persistent tremor. Daughter has applied for emergency guardianship for placement and dispo planning. Status: Acute (7) Hypokalemia: Status: Acute Assessment and Plan: Resolved with replacement. (8) Tobacco abuse: Status: Acute Assessment and Plan: Tolerating Nicotine Patch Plan 67-year-old male he above-mentioned comorbidities, admitted after being found down at home for 3 days. Rhabdomyolysis has resolved. Rivaroxaban for prophylaxis. We are currently awaiting placement for patient; daughter recently granted emergency guardianship. Appreciate input from PT, OT, and social work. Time Spent With Patient Total time spent: 25 Subjective Date Seen: 01/07/22 Interval history: Oumar has no concerns for me today; tolerating po intake, no GI or complaints. Specifically denies pain. No concerns from nursing staff. Exam Narrative: Exam Narrative: GEN: Alert and answering questions appropriately welling in bed HEENT: Normal external ears, EOMIs bilaterally, no scleral icterus CV: RRR, No concerning murmurs, rubs, or gallops R: wheezing bilateral apices anteriorly, rhonchi throughout Ext: wwp, no concerning edema Skin: No concerning skin lesions or rashes on exposed skin Neuro: Nonfocal Psych: Appropriate Const: Vital Signs, click to edit/add: Vital Signs - 24 hr 01/06/22 12:14 01/06/22 16:04 01/06/22 16:08 Temperature 97.0 F L 97.5 F L Pulse Rate [Left R adial] 88 88 84 Respiratory Rate 20 20 20 Blood Pressure [Le ft Arm] 142/85 H 155/85 H Pulse Oximetry 97 92 Oxygen Delivery Me thod Room Air Room Air Oxygen Flow Rate 0 0 01/06/22 20:00 01/06/22 23:00 01/07/22 00:00 Temperature 98.4 F 98.1 F Pulse Rate [Left R adial] 77 77 94 Respiratory Rate 20 20 Blood Pressure [Le ft Arm] 147/85 H 143/89 H Pulse Oximetry 98 99 Oxygen Delivery Me thod Room Air Room Air Oxygen Flow Rate 0 01/07/22 04:00 Temperature 98.1 F Pulse Rate [Left R adial] 94 Respiratory Rate 20 Blood Pressure [Le ft Arm] 143/89 H Pulse Oximetry 99 Oxygen Delivery Me thod Room Air Oxygen Flow Rate 0 Labs Labs: Laboratory Results - last 24 hr 01/07/22 06:35 Sodium 138 Potassium 4.2 Chloride 100 Carbon Dioxide 32 BUN 16 Creatinine 0.7 Estimated Creat Clear 76.35 Estimated GFR 101 Glucose 100 Calcium 9.1
[2022-01-07] MEDS: POTASSIUM CHLORIDE 10 MEQ CAPSULE ER 20 MEQ PO (09:41)
[2022-01-07] MEDS: dilTIAZem 240 MG CAP (CD) PO (09:42)
[2022-01-07] MEDS: RIVAROXABAN 10 MG TABLET 20 MG PO (09:42)
[2022-01-07] MEDS: MAGNESIUM OXIDE 400 MG TABLET PO (09:42)
[2022-01-07] MEDS: SODIUM CHLORIDE 0.9 % (FLUSH) 10 ML SYRINGE 5 ML IVF ×2 (09:43→20:32)
--- NOTE | 2022-01-07 11:28 | PC.SOCIAL ---
Received a phone call from Melida in Admissions at [facility]. Melida stated that their team has decided to decline admission to pt due to smoking and drinking concerns.
--- NOTE | 2022-01-07 17:07 | PC.SOCIAL ---
Met with pt's daughter Mei Lozano. Mei is traveling back home today (out of state). Informed Mei that the intake coordinator at [facility] in [place] is not in the office today so we do not have an answer on admission. Informed Mei that that [facility] in [place] declined admitting pt. Provided Mei with a list of SNF in [place]. Provided Mei with pt's social security number (she is guardian) so she can call pt's medical insurance to see what SNF's are contracted through insurance. Mei called this worker back with four SNF's that are contracted through pt's insurance. Mei is mostly interested in [facility] in [place] [facility] phone number [phone]. Mei provided this worker with the fax number to send initial information fax: [phone]. Made a call to [facility] Admissions and was provided a second fax number of [phone]. Sent initial packet to both fax numbers provided. Tania in Admissions will review packet on Monday. Mei stated she is also interested in [facility] shelter in [place] phone number [phone]. Made a phone call to [facility] and left a voicemail for Tamica in Admissions requesting information on whether the facility has an open bed and requesting a fax number to send initial information. Mei (pt's daughter) provided information on [facility] in [place] at phone number [phone]. Made a phone call to [facility] in [place] and left a voicemail in the admissions office requesting information on whether the facility has an open bed and requesting a fax number to send initial information. Mei (pt's daughter) also expressed interest in [facility] in [place]. Made a phone call to [facility] in [place] at [phone]. Left a voicemail in Admissions with Nini. Requested information on whether the facility has an open bed and requested the fax number to send pt initial information for consideration of admission.
--- NOTE | 2022-01-07 18:26 | PC.NURSE ---
End of Shift: Patient pleasant and cooperative. Patient is independent with walker in room. Patient is alert and thought it was today. Patient is vitally stable, lung course/rhonci anterior and posteriorly, BS WNL, IV patent and intact. Patient denies pain. Patient did have one wet brief, otherwise uses the toilet, patient had 2 BM's. Patient tolerating regular diet, had breakfast and a late lunch, dinner currently sitting in room. Patient has been napping majority of day in bed.
[2022-01-07] MEDS: OMEPRAZOLE 20 MG CAPSULE DR PO (20:32)
[2022-01-07] MEDS: ACETAMINOPHEN 325 MG TABLET 650 MG PO (20:32)
[2022-01-08 04:55] VITALS: BP 139/98; PULSE 82; RESP 16; TEMP 36.4; O2SAT 97
--- NOTE | 2022-01-08 04:56 | PC.NURSE ---
VSS RA. C/o abd pain abdomen a little firm but nontender and was given Tylenol. Occ dry cough. Lungs diminished. At 0500 w/VS check had no complaints. Up ad teo in room ind w/cares. Tolerating diet. Declined SCDs previously.
[2022-01-08 07:00] VITALS: BP 147/88; PULSE 87; RESP 20; TEMP 37.1; O2SAT 99
[2022-01-08 07:03] LABS: Basophils Absolute Auto 0.07 K/uL (0.00-0.30); Eosinophils Absolute Auto 0.15 K/uL (0.00-0.50); Hematocrit 42.6 % (37.0-53.0); Hemoglobin* 14.1 gm/dL (13.5-17.5); Immature Granulocytes Abs Auto 0.08 K/uL (0.00-0.30); Lymphocytes Percent Auto 21.8 % (20-44); Mean Corpuscular HGB Conc 33 gm/dL (32-36); Mean Corpuscular Hemoglobin 34 pg (26-34); Mean Corpuscular Volume 104 fL (80-100); Monocytes Percent Auto 18.4 % (0.0-11.0); Neutrophils Percent Auto 55.7 % (42.0-72.0); Platelet Count* 289 K/uL (140-440); Red Blood Count 4.11 m/uL (4.30-5.90); White Blood Count* 7.35 K/uL (4.50-11.00)
[2022-01-08 07:08] LABS: Slide Review Reflex No
[2022-01-08 07:17] LABS: Chloride* 104 mmol/L (96-114); Sodium* 138 mmol/L (135-149)
[2022-01-08 07:18] LABS: Potassium* 3.8 mmol/L (3.6-5.1)
[2022-01-08 07:20] LABS: Blood Urea Nitrogen* 21 mg/dL (7-30); Carbon Dioxide* 27 mmol/L (20-32); Creatinine* 0.8 mg/dL (0.5-1.5); Est. Creatinine Clearance* 76.35; Estimated Glomerular Filt Rate 97 ml/min
[2022-01-08 07:21] LABS: Calcium* 8.8 mg/dL (8.4-10.6); Glucose* 123 mg/dL (60-115)
[2022-01-08 08:00] LABS: Albumin* 3.5 g/dL (3.3-5.0)
[2022-01-08 08:02] LABS: Aspartate Amino Transferase* 42 U/L (12-35)
[2022-01-08] MEDS: dilTIAZem 240 MG CAP (CD) PO (09:13)
[2022-01-08] MEDS: POTASSIUM CHLORIDE 10 MEQ CAPSULE ER 20 MEQ PO (09:13)
[2022-01-08] MEDS: RIVAROXABAN 10 MG TABLET 20 MG PO (09:13)
[2022-01-08] MEDS: MAGNESIUM OXIDE 400 MG TABLET PO (09:13)
[2022-01-08] MEDS: SODIUM CHLORIDE 0.9 % (FLUSH) 10 ML SYRINGE 5 ML IVF ×2 (09:14→20:36)
[2022-01-08 11:00] VITALS: BP 134/73; PULSE 76; RESP 20; TEMP 36.6; O2SAT 99
--- NOTE | 2022-01-08 13:09 | P.IMPN_ITS ---
Progress Note: A&P Assessment and plan (1) Alcoholism: Status: Acute Assessment and Plan: 1. Patient does not seem to comprehend that he has this illness. 2. Seems to be in the pre-contemplative stage of addressing this with intent to take control of his life. (2) Wernicke-Korsakoff syndrome: Problem details: Altered mental status with lethargy and difficulty speaking on admission that improved after banana bag. Persistent tremor. Daughter has applied for emergency guardianship for placement and dispo planning. Status: Acute Assessment and Plan: 1. Will start thiamin. 2. The hope is that this will improve with alcohol consumption cessation, more time, and effort. 3. Patient unaware of the severity and extent of his illness and or incapable of comprehending this at this time. 4. Continues to have high risk for fall. (3) Alcohol withdrawal: Status: Acute Assessment and Plan: 1. No longer actively withdrawing from alcohol. (4) Rhabdomyolysis: Status: Acute Assessment and Plan: 1. Much improved. (5) Hypokalemia: Status: Acute Assessment and Plan: 1. Continue to require potassium supplementation. (6) Hematuria: Status: Acute Assessment and Plan: 1. No longer apparent. (7) Thrombocytopenia: Status: Acute Assessment and Plan: 1. Normalizing at this juncture. 2. Likely related to cirrhosis, portal hypertension, and bone marrow suppression from alcohol exposure. (8) Elevated troponin: Problem details: peak 0.1, asymptomatic. TTE completed 01/02: 1. Normal LV size, normal wall thickness, normal global systolic function with an estimated EF of 55 - 60%. 2. Basal inferior segment and basal septum segment are abnormal. 3. Right ventricular cavity size is mildly enlarged, global systolic RV function is normal. 4. The aortic valve is trileaflet and sclerotic, no stenosis and no regurgitation. 5. Mildly enlarged left atrium. 6. The ascending aorta is dilated with a maximal diameter of 4.0 cm. Status: Acute Assessment and Plan: 1. Could potentially benefit from outpatient stress echocardiogram. (9) Atrial fibrillation with RVR: Problem details: On Diltiazem for rate control and Rivaroxaban for anticoagulation. Status: Acute Assessment and Plan: 1. Better control at this juncture. (10) Tobacco abuse: Status: Acute Assessment and Plan: 1. Pre contemplative regarding possible smoking cessation. (11) Depression: Status: Acute Assessment and Plan: 1. May require additional pharmacologic support. Plan 1. Reviewed my impressions with the patient multiple times. He has difficulty understanding our discussions. This appears to be related to underlying condition. 2. Patient agreeable with above stated plans of care. 3. Patient has no recollection of his daughter being here over the recent days. 4. Undoubtedly for a period of time he will require higher level of care than he has been receiving at home heretofore. We are awaiting a safe disposition plan to be established yet. 5. Continue with other supportive efforts. Time Spent With Patient Total time spent: 40 minutes Subjective Time Seen by Provider: 07:30 Date Seen: 01/08/22 Interval history: 67-year-old man who clearly does not appreciate exactly why he is in the hospital or how he ended up here. He tells me matter of factly that he fell, could not get up, and came to the hospital. He tells me he is not sure why he still here at the hospital. He states he feels better and wants to go home with his fiancee. As I press him with additional questions he adds that he might have been on the floor for 2 days with his fiancee feeding him and providing him with alcohol to drink during that interim of time. He does not seem to find that unusual, telling me that sometimes he moves about by crawling on the floor. He then proceeds to ask me how long he needs to stay in the hospital because he wants to go back home. Denies any chest heaviness, pressure, tightness, or pain. Denies any dyspnea or cough. Denies any syncope or near-syncope. Denies palpitations. Denies nausea or vomiting. States bowel and bladder function are satisfactory. Acknowledges that he has difficulty standing and walking. Exam Narrative: Exam Narrative: When I 1st visit him around 7 in the morning he is sound asleep. I returned 30 minutes later and he is awake. Requires assistance to remove sheets from self and transfer from bed to chair. Uses 2 wheeled walker for safety. Alert, oriented to self, place, and in part to time and situation. He is angry that he is here. He asked me multiple times how long he needs to be in the hospital and when he can return home. I answer similarly every single time indicating to him that we are not in a hurry for him to leave the hospital as much as we are in a hurry to try to help his health become more stable. I review with him how multiple organ systems in his body have become adversely affected by his alcohol consumption and now more recently from being on the floor and not eating or drinking adequately, and how it appears as though he needs fair amount of professional help to care for himself for a period of time, it is unclear to us how long that time frame will be. He wants a more definite answer but I inform him that I am not able to provide him with that information because I literally do not know. Still not able to identify problems and adequately problem solve with safety in mind. Obviously still has amnesia of recent events. Seems totally unaware of the severity and significance of his current condition. Lungs remain clear to auscultation. Heart tones with regular rhythm. Abdomen with active bowel sounds. Palpable pulses upper and lower extremities. Const: Vital Signs, click to edit/add: Vital Signs - 24 hr 01/07/22 15:00 01/07/22 16:00 01/07/22 19:40 Temperature 97.8 F 96.9 F L Pulse Rate [Left R adial] 102 H 102 H 86 Respiratory Rate 20 20 20 Blood Pressure [Le ft Arm] Blood Pressure [Ri ght Arm] 160/93 H 156/93 H Pulse Oximetry 97 99 Oxygen Delivery Me thod Room Air Room Air Oxygen Flow Rate 01/07/22 23:09 01/08/22 04:55 01/08/22 07:00 Temperature 97.3 F L 97.6 F Pulse Rate [Left R adial] 79 82 87 Respiratory Rate 16 16 20 Blood Pressure [Le ft Arm] Blood Pressure [Ri ght Arm] 141/79 H 139/98 H Pulse Oximetry 94 97 Oxygen Delivery Me thod Room Air Room Air Oxygen Flow Rate 01/08/22 07:00 01/08/22 11:00 Temperature 98.7 F 98 F Pulse Rate [Left R adial] 87 76 Respiratory Rate 20 20 Blood Pressure [Le ft Arm] 147/88 H 134/73 Blood Pressure [Ri ght Arm] Pulse Oximetry 99 99 Oxygen Delivery Me thod Room Air Room Air Oxygen Flow Rate 0 Documenting provider has reviewed patient's vital signs: yes Labs Labs: Laboratory Results - last 24 hr 01/08/22 01/08/22 06:35 06:35 WBC 7.35 RBC 4.11 L Hgb 14.1 Hct 42.6 MCV 104 H MCH 34 MCHC 33 RDW Coeff of Miko 14.0 Plt Count 289 Neut % (Auto) 55.7 Lymph % (Auto) 21.8 Bracken % (Auto) 18.4 H Eos % (Auto) 2.0 Baso % (Auto) 1.0 Neut # (Auto) 4.10 Lymph # (Auto) 1.60 Bracken # (Auto) 1.40 H Eos # (Auto) 0.15 Baso # (Auto) 0.07 Abs Immat Gran (auto) 0.08 Sodium 138 Potassium 3.8 Chloride 104 Carbon Dioxide 27 BUN 21 Creatinine 0.8 Estimated Creat Clear 76.35 Estimated GFR 97 Glucose 123 H Calcium 8.8 AST 42 H Albumin 3.5
[2022-01-08 15:00] VITALS: BP 127/74; PULSE 68; RESP 22; TEMP 36.8; O2SAT 96
--- NOTE | 2022-01-08 18:14 | PC.NURSE ---
End of Shift: Patient pleasant and cooperative. Patient vitally stable, lungs clear, BS WNL, IV intact. Patient denies pain, and is independent in room with walker. Patient has a great appetite, urinating, and had 2 BMs. Patient has napped today but has been up in the chair more compared to yesterday.
[2022-01-08] MEDS: ACETAMINOPHEN 325 MG TABLET 650 MG PO (19:27)
[2022-01-08 20:12] VITALS: BP 133/83; PULSE 93; RESP 16; TEMP 35.9; O2SAT 96
[2022-01-08] MEDS: OMEPRAZOLE 20 MG CAPSULE DR PO (20:36)
[2022-01-08 23:17] VITALS: BP 142/78; PULSE 83; RESP 16; TEMP 35.8; O2SAT 97
[2022-01-09 03:04] VITALS: RESP 16
--- NOTE | 2022-01-09 04:20 | PC.NURSE ---
VSS RA. C/o abd pain 11/21 gave Tylenol. No c/o since. Dr. Martinez gave orders for restful vitals and d/c saline lock. Up ad teo in room tolerating diet and ind w/cares.
[2022-01-09 07:00] VITALS: BP 130/83; PULSE 84; RESP 18; TEMP 37.1; O2SAT 98
[2022-01-09] MEDS: MAGNESIUM OXIDE 400 MG TABLET PO (08:36)
[2022-01-09] MEDS: dilTIAZem 240 MG CAP (CD) PO (08:36)
[2022-01-09] MEDS: THIAMINE 100 MG TABLET PO (08:36)
[2022-01-09] MEDS: POTASSIUM CHLORIDE 10 MEQ CAPSULE ER 20 MEQ PO (08:36)
[2022-01-09] MEDS: RIVAROXABAN 10 MG TABLET 20 MG PO (08:39)
--- NOTE | 2022-01-09 09:05 | PM.IMPN1 ---
Progress Note: A&P Assessment and plan (1) Alcoholism: Status: Acute Assessment and Plan: 1. Currently lacks the capacity to meaningfully engage in a chemical dependency program. Little awareness or insight into this disease process at this time. (2) Wernicke-Korsakoff syndrome: Problem details: Altered mental status with lethargy and difficulty speaking on admission that improved after banana bag. Persistent tremor. Daughter has been granted emergency guardianship through the court system for placement and disposition planning. Status: Acute Assessment and Plan: 1. Poor decision-making capacity in regard to safety. 2. Ataxic gait with increased risk for falls. (3) Alcohol withdrawal: Status: Acute Assessment and Plan: 1. This has resolved now. (4) Rhabdomyolysis: Status: Acute Assessment and Plan: 1. This has resolved now. (5) Hypokalemia: Status: Acute Assessment and Plan: 1. This has resolved now. (6) Hematuria: Status: Acute Assessment and Plan: 1. This will warrant additional monitoring and possible assessment. (7) Thrombocytopenia: Status: Acute Assessment and Plan: 1. This has resolved. (8) Elevated troponin: Problem details: peak 0.1, asymptomatic. TTE completed 01/02: 1. Normal LV size, normal wall thickness, normal global systolic function with an estimated EF of 55 - 60%. 2. Basal inferior segment and basal septum segment are abnormal. 3. Right ventricular cavity size is mildly enlarged, global systolic RV function is normal. 4. The aortic valve is trileaflet and sclerotic, no stenosis and no regurgitation. 5. Mildly enlarged left atrium. 6. The ascending aorta is dilated with a maximal diameter of 4.0 cm. Status: Acute Assessment and Plan: 1. Consider outpatient stress echo. (9) Atrial fibrillation with RVR: Problem details: On Diltiazem for rate control and Rivaroxaban for anticoagulation. Status: Acute Assessment and Plan: 1. Rate controlled and anticoagulated. (10) Tobacco abuse: Status: Acute Assessment and Plan: 1. No intention to continue to maintain tobacco free status. (11) Depression: Status: Acute Assessment and Plan: 1. Consider initiation of selective serotonin reuptake inhibitor in outpatient setting. Plan 1. Again attempted to answer patient's question as to when he can go home. Again he does not accept or understand the concerned that we have for his well-being at this juncture. Will continue with efforts to outline our concerns and provide him with hope at the same time. 2. Await safe disposition plan to be worked out with patient's daughter and our social human services assistants. Time Spent With Patient Total time spent: 30 minutes Subjective Time Seen by Provider: 09:05 Date Seen: 01/09/22 Interval history: Hospital Day number 9. 67-year-old man who still does not appreciate exactly why he is in the hospital or how he ended up here. His response to my question about how he is feeling is that he feels fine. I ask him if he has any concerns about his health, he says no. Upon asking him if there is anything I can help him with today and he responds with, when can I go home? ? Denies any chest heaviness, pressure, tightness, or pain. Denies any dyspnea or cough. Denies any syncope or near-syncope. Denies palpitations. Denies nausea or vomiting. Appetite is improving. Tolerating oral intake. States bowel and bladder function are satisfactory. Acknowledges that he has difficulty standing and walking. Doing adequately with use of walker. Exam Narrative: Exam Narrative: Sitting in chair at bedside. Appears comfortable. No acute distress. Alert, oriented to self, place, not so much to time or situation. Able to have superficial conversation easily. No insight as to why he is in the hospital, his current health status, how his health condition has devolved to the current status. Minimizes and dismisses the influence of alcohol on his health condition. Tells me if he goes home with his fiancee that all will be well. Lungs are clear to auscultation today. Heart tones with regular rhythm, normal S1-S2. Abdomen is obese with active bowel sounds, soft, nontender. Extremities without edema. Skin is intact. No apparent tremor today at rest or with intention. Has broad-based gait. Able to transfer with standby assist, although needs some cuing. Const: Vital Signs, click to edit/add: Vital Signs - 24 hr 01/08/22 11:00 01/08/22 15:00 01/08/22 15:00 Temperature 98 F 98.2 F Pulse Rate [Left R adial] 76 68 68 Respiratory Rate 20 22 22 Blood Pressure [Le ft Arm] 134/73 127/74 Blood Pressure [Ri ght Arm] Pulse Oximetry 99 96 Oxygen Delivery Me thod Room Air Room Air 01/08/22 20:12 01/08/22 23:17 01/09/22 03:04 Temperature 96.6 F L 96.4 F L Pulse Rate [Left R adial] 93 83 Respiratory Rate 16 16 16 Blood Pressure [Le ft Arm] 142/78 H Blood Pressure [Ri ght Arm] 133/83 Pulse Oximetry 96 97 Oxygen Delivery Me thod Room Air Room Air Documenting provider has reviewed patient's vital signs: yes
[2022-01-09 11:00] VITALS: BP 129/67; PULSE 79; RESP 18; TEMP 36.6; O2SAT 96
[2022-01-09 15:00] VITALS: BP 113/82; PULSE 86; RESP 20; TEMP 36.8; O2SAT 96
--- NOTE | 2022-01-09 18:46 | PC.NURSE ---
End of Shift: Patient pleasant and cooperative. Patient vitally stable, lungs clear, BS WNL, No IV. Patient independent in room with walker. Patient with great appetite. Patient denies pain and has been napping on and off. Romeo visited for a good amount of time today. Patient urinating and had 2 BMs.
[2022-01-09 19:42] VITALS: BP 126/95; PULSE 66; RESP 20; TEMP 35.9; O2SAT 98
[2022-01-09] MEDS: OMEPRAZOLE 20 MG CAPSULE DR PO (20:33)
[2022-01-09] MEDS: MELATONIN 3 MG TABLET PO (23:00)
[2022-01-09 23:05] VITALS: BP 151/92; PULSE 72; RESP 16; TEMP 36.3; O2SAT 95
[2022-01-10 03:00] VITALS: RESP 16
[2022-01-10 07:00] VITALS: BP 138/79; PULSE 87; RESP 20; TEMP 36.6; O2SAT 99
[2022-01-10 07:03] LABS: Hematocrit 43.8 % (37.0-53.0); Hemoglobin* 14.5 gm/dL (13.5-17.5); Mean Corpuscular HGB Conc 33 gm/dL (32-36); Mean Corpuscular Hemoglobin 35 pg (26-34); Mean Corpuscular Volume 104 fL (80-100); Platelet Count* 357 K/uL (140-440); White Blood Count* 9.63 K/uL (4.50-11.00)
[2022-01-10 07:19] LABS: Slide Review Reflex No
[2022-01-10 07:23] LABS: Potassium* 4.1 mmol/L (3.6-5.1)
--- NOTE | 2022-01-10 07:31 | PC.NURSE ---
[id number] Pt rested well during night, independent in room.
[2022-01-10] MEDS: dilTIAZem 240 MG CAP (CD) PO (08:39)
[2022-01-10] MEDS: POTASSIUM CHLORIDE 10 MEQ CAPSULE ER 20 MEQ PO (08:39)
[2022-01-10] MEDS: MAGNESIUM OXIDE 400 MG TABLET PO (08:39)
[2022-01-10] MEDS: RIVAROXABAN 10 MG TABLET 20 MG PO (08:39)
[2022-01-10] MEDS: THIAMINE 100 MG TABLET PO (08:39)
[2022-01-10 11:00] VITALS: BP 130/84; PULSE 94; RESP 20; TEMP 36.8; O2SAT 98
[2022-01-10] MEDS: ACETAMINOPHEN 325 MG TABLET 650 MG PO (11:11)
--- NOTE | 2022-01-10 11:13 | PC.SOCIAL ---
Diacharge planning: Called [facility] and spoke with admissions who stated they are completing assessment soon and will contact social science manager with decision on admit. Per education and outreach coordinator, dtr arrived at the facility and a tour on Monday afternoon. [facility] [place]. Both facilities have transitional care beds available. Faxed information and awaiting calls back from these three facilities currently assessing pt for admit. roller shop utility worker to follow up as needed.
--- NOTE | 2022-01-10 13:07 | PC.NURSE ---
End of shift Note: Patient has been up independently in his room. No behaviors noted today has been pleasant and cooperative. Did complain of generalized ache in his abdomen area which he received a dose of Tyl. Asked if he was feeling constipated which he denied. He is awaiting placement in a SNF and then will discharge. No questions or concerns noted.
--- NOTE | 2022-01-10 14:41 | PM.IMPN1 ---
Progress Note: A&P Assessment and plan (1) Alcoholism: Status: Acute Assessment and Plan: 1. Again he is not able to grasp that he has this illness. Current cognitive limitations preclude him from being able to meaningfully engage in any inpatient or outpatient alcohol treatment program at this juncture. (2) Wernicke-Korsakoff syndrome: Problem details: Altered mental status with lethargy and difficulty speaking on admission that improved after banana bag. Persistent tremor. Daughter has been granted emergency guardianship through the court system for placement and disposition planning. Status: Acute Assessment and Plan: 1. Continue with thiamin administration. 2. Continue with efforts to find a intermediate and possibly a long-term placement plan for him given his physical and cognitive limitations in association with this. (3) Alcohol withdrawal: Status: Acute Assessment and Plan: 1. Patient is no longer actively withdrawing from alcohol as he was when he initially presented to the hospital. (4) Rhabdomyolysis: Status: Acute Assessment and Plan: 1. This is resolved now. (5) Hypokalemia: Status: Acute Assessment and Plan: 1. Much improved. Will monitor potassium periodically as warranted hereafter. (6) Hematuria: Status: Acute Assessment and Plan: 1. No longer problematic. (7) Thrombocytopenia: Status: Acute Assessment and Plan: 1. Likely related to alcoholism, portal hypertension, possible cirrhosis, possible acute bone marrow suppression. Much improved now. (8) Elevated troponin: Problem details: peak 0.1, asymptomatic. TTE completed 01/02: 1. Normal LV size, normal wall thickness, normal global systolic function with an estimated EF of 55 - 60%. 2. Basal inferior segment and basal septum segment are abnormal. 3. Right ventricular cavity size is mildly enlarged, global systolic RV function is normal. 4. The aortic valve is trileaflet and sclerotic, no stenosis and no regurgitation. 5. Mildly enlarged left atrium. 6. The ascending aorta is dilated with a maximal diameter of 4.0 cm. Status: Acute Assessment and Plan: 1. Resolved. (9) Atrial fibrillation with RVR: Problem details: On Diltiazem for rate control and Rivaroxaban for anticoagulation. Status: Acute Assessment and Plan: 1. Continue with rate control and anticoagulation as instituted. (10) Tobacco abuse: Status: Acute Assessment and Plan: 1. Patient pre contemplative about possible smoking cessation. (11) Depression: Status: Acute Assessment and Plan: 1. Hard to sort out what is due to his alcoholism, alcohol use, adjustment reaction with depression, or underlying major depressive disorder. Doing adequate for now. Plan 1. Continue with efforts to support and redirect the patient. 2. Continue with efforts to try to establish a safe temporary or long-term placement option 3. Continue to work with the patient's daughter who is his guardian. Time Spent With Patient Total time spent: 30 minutes Subjective Time Seen by Provider: 08:00 Date Seen: 01/10/22 Interval history: Hospital Day number 10. 67-year-old man who still does not appreciate exactly why he is in the hospital or how he ended up here. He states that he feels fine. I ask him if he has any concerns about his health, he says no. Upon asking him if there is anything I can help him with today and he responds with, when can I go home? ? I again reviewed with him that his daughter is now his court appointed guardian because of his inability to care for himself in his living setting prior to arriving here in the hospital. He insists that he has been taking good care of himself and that he has help and support from his fiancee. He is unable to grasp that both he and his fiancee were not able to safely meet his needs which is how when why he ended up in the hospital in his situation and circumstance. He asked me what he can do about his daughter having guardianship. I informed him he needs to talk with his daughter and consider other legal options. Denies any chest heaviness, pressure, tightness, or pain. Denies any dyspnea or cough. Denies any syncope or near-syncope. Denies palpitations. Denies nausea or vomiting. Appetite is improving. Tolerating oral intake. States bowel and bladder function are satisfactory. Acknowledges that he has difficulty standing and walking. Doing adequately with use of walker. Exam Narrative: Exam Narrative: Alert, oriented to self, place, in part to time, not really to situation at all. He is unable to fathom the severity of his physical health or a the limitations of his cognitive abilities. Lungs are clear to auscultation. Heart tones with regular rhythm. Abdomen with active bowel sounds, soft, nontender. Transfers with use of walker with standby assist. Broad-based gait. Const: Vital Signs, click to edit/add: Vital Signs - 24 hr 01/09/22 15:00 01/09/22 15:00 01/09/22 19:42 Temperature 98.2 F 96.7 F L Pulse Rate [Left R adial] 86 86 66 Respiratory Rate 20 20 20 Blood Pressure [Le ft Arm] 113/82 126/95 H Blood Pressure [Ri ght Arm] Pulse Oximetry 96 98 Oxygen Delivery Me thod Room Air Room Air 01/09/22 23:05 01/10/22 03:00 01/10/22 07:00 Temperature 97.4 F L 97.8 F Pulse Rate [Left R adial] 72 87 Respiratory Rate 16 16 20 Blood Pressure [Le ft Arm] 151/92 H 138/79 Blood Pressure [Ri ght Arm] 138/79 Pulse Oximetry 95 99 Oxygen Delivery Me thod Room Air Room Air 01/10/22 07:00 01/10/22 11:00 Temperature 98.2 F Pulse Rate [Left R adial] 87 94 Respiratory Rate 20 20 Blood Pressure [Le ft Arm] 130/84 Blood Pressure [Ri ght Arm] Pulse Oximetry 98 Oxygen Delivery Me thod Room Air Documenting provider has reviewed patient's vital signs: yes Labs Labs: Laboratory Results - last 24 hr 01/10/22 01/10/22 06:34 06:34 WBC 9.63 RBC 4.20 L Hgb 14.5 Hct 43.8 MCV 104 H MCH 35 H MCHC 33 Plt Count 357 Potassium 4.1
--- NOTE | 2022-01-10 14:48 | PC.SOCIAL ---
Discharge planning: Received call back from [facility], stating they are unable to meet patient's needs. Pt is still being assessed by [facility] and [facility] ([facility] are still assessing pt for admit. Called dtr who was requesting update. She is aware of current status of evaluations. Dtr asked about decision from [facility]. general farmworker called [facility] nad left message requesting update on evaluation status. Per dtr, she had also been interested in [facility] in [place] but that facility s unable to meet pt's needs, per dtr. Dtr states she will call back with an additional list of skilled nusing facilities to contact if denied by the current three facilities still assessing. Dtr confirms placement is for short term rehab as she is planning to transfer pt to an assisted livign facility near her in [place] when he completes his insurance covered rehab. general farmworker to follow up as needed.
[2022-01-10 15:00] VITALS: BP 149/85; PULSE 65; RESP 20; TEMP 36.6; O2SAT 98
--- NOTE | 2022-01-10 18:59 | PC.NURSE ---
End of Shift: Patient pleasant and cooperative. Patient vitally stable, lungs clear, BS WNL, No IV. Patient denies pain, and is independent with walker. Patient has been in bed for this shift besides for eating dinner. Great appetite, and urinating.
[2022-01-10 19:00] VITALS: BP 137/93; PULSE 71; RESP 18; TEMP 36.6; O2SAT 96
[2022-01-10] MEDS: OMEPRAZOLE 20 MG CAPSULE DR PO (21:32)
--- NOTE | 2022-01-10 22:46 | PC.NURSE ---
Pt up I with walker in room this shift. VSS. Voiding without problems. Ate 100% of supper.
[2022-01-10] MEDS: MELATONIN 3 MG TABLET PO (23:07)
[2022-01-10 23:58] VITALS: BP 129/78; PULSE 72; RESP 16; TEMP 36.2; O2SAT 96
--- NOTE | 2022-01-11 04:51 | PC.NURSE ---
VSS RA. Melatonin at HS. Restful vitals. No complaints. Up ad teo in room tolerating diet.
[2022-01-11 06:35] VITALS: BP 137/75; PULSE 69; RESP 16; TEMP 35.9; O2SAT 95
[2022-01-11] MEDS: POTASSIUM CHLORIDE 10 MEQ CAPSULE ER 20 MEQ PO (08:44)
[2022-01-11] MEDS: MAGNESIUM OXIDE 400 MG TABLET PO (08:44)
[2022-01-11] MEDS: RIVAROXABAN 10 MG TABLET 20 MG PO (08:44)
[2022-01-11] MEDS: dilTIAZem 240 MG CAP (CD) PO (08:44)
[2022-01-11] MEDS: THIAMINE 100 MG TABLET PO (08:44)
[2022-01-11 08:55] VITALS: BP 164/96; PULSE 85; RESP 16; TEMP 35.9; O2SAT 97
--- NOTE | 2022-01-11 09:37 | NUTR.NU ---
Nutrition Update/LOS note: Patient with LOS day 11 -- admitted for fall with Rhabdo., alcoholism, and Wernicke-Korsakoff syndrome. Unable to care for self. Patient's daughter applied for guardianship. Currently waiting for placement. Current diet is regular. Meal intakes have been adequate, mainly 100% since admit. Current weight 177 lbs, height 71 inches; BMI is normal at 24.8 kg/m2. With meal intakes adequate, no nutrition interventions at this time. RDN will continue to monitor and follow-up prn.
--- NOTE | 2022-01-11 10:47 | PC.SOCIAL ---
Social work note: [facility] held a zoom Motion Hearing regarding guardianship this morning at 10:00am. Pt was provided with documentation and meeting invitation prior to meeting by this social media specialist. This information had been mailed to pt at the hospital. Pt chose to participate in this hearing and was connected from his room with portable computer. Pt requested his significant other and social media specialist remain in the room for the hearing . Result of hearing is that there will be a scheduled 2 hour hearing on guardianship in the future, but that the order for emergency guardianship is in place until a decision of that hearing is reached. Pt requested contact information for his stapler machine Jarret Stallings, which was provided.
--- NOTE | 2022-01-11 13:05 | PC.SOCIAL ---
Discharge planning: REquested evaluation for admit to [facility] and awaiting decision. Called [facility]. [facility] could have accepted pt earlier, but was not in network for his insurance for a covered stay. As dtr has applied for medical assistance, called back to [facility] to ask if pt could be accepted under his Medical Assistance pending instead of his Medicare. Awaiting call back with decision on this.
[2022-01-11 14:00] VITALS: BP 130/78; PULSE 99; RESP 16; TEMP 36.7; O2SAT 99
--- NOTE | 2022-01-11 15:55 | PC.SOCIAL ---
Discharge plan: Received call back from Simi at [facility] stating they can evaluate pt for admit under Medical Assistance pending. Faxed information and awaiting call back with decision on admit. wardrobe specialty worker to follow up as needed.
--- NOTE | 2022-01-11 16:42 | PM.IMPN1 ---
Progress Note: A&P Assessment and plan (1) Alcoholism: Status: Acute (2) Wernicke-Korsakoff syndrome: Problem details: Altered mental status with lethargy and difficulty speaking on admission that improved after banana bag. Persistent tremor. Daughter has been granted emergency guardianship through the court system for placement and disposition planning. Status: Acute (3) Alcohol withdrawal: Status: Acute (4) Rhabdomyolysis: Status: Acute (5) Hypokalemia: Status: Acute (6) Hematuria: Status: Acute (7) Thrombocytopenia: Status: Acute (8) Elevated troponin: Problem details: peak 0.1, asymptomatic. TTE completed 01/02: 1. Normal LV size, normal wall thickness, normal global systolic function with an estimated EF of 55 - 60%. 2. Basal inferior segment and basal septum segment are abnormal. 3. Right ventricular cavity size is mildly enlarged, global systolic RV function is normal. 4. The aortic valve is trileaflet and sclerotic, no stenosis and no regurgitation. 5. Mildly enlarged left atrium. 6. The ascending aorta is dilated with a maximal diameter of 4.0 cm. Status: Acute (9) Atrial fibrillation with RVR: Problem details: On Diltiazem for rate control and Rivaroxaban for anticoagulation. Status: Acute (10) Tobacco abuse: Status: Acute (11) Depression: Status: Acute Plan 1. Reviewed impressions with patient. 2. Continue with current treatment efforts and efforts to establish a safe disposition plan. 3. Patient expresses willingness to proceed at this juncture as specified. Subjective Time Seen by Provider: 08:00 Date Seen: 01/11/22 Interval history: Hospital Day number 11. 67-year-old man who still does not appreciate exactly why he is in the hospital or how he ended up here. He states that he feels fine. Again he asks me, ?when can I go home? ? He seems to have a better grasp that we are awaiting a safe disposition plan for him. He expresses frustration but willingness to proceed at this juncture. Denies any chest heaviness, pressure, tightness, or pain. Denies any dyspnea or cough. Denies any syncope or near-syncope. Denies palpitations. Denies nausea or vomiting. Appetite is improving. Tolerating oral intake. States bowel and bladder function are satisfactory. Acknowledges that he has difficulty standing and walking. Doing adequately with use of walker. Exam Narrative: Exam Narrative: Alert, oriented to self and place. In part oriented to time and situation. Lungs are clear to auscultation. Heart tones with regular rhythm. Abdomen with active bowel sounds, soft, nontender. Extremities without edema. Transferring with use of his walker. Still has broad-based gait. Skin is dry and intact. Const: Vital Signs, click to edit/add: Vital Signs - 24 hr 01/10/22 19:00 01/10/22 23:58 01/11/22 06:35 Temperature 98 F 97.1 F L 96.7 F L Pulse Rate [Left R adial] 71 72 69 Respiratory Rate 18 16 16 Blood Pressure [Le ft Arm] 137/93 H 129/78 137/75 Pulse Oximetry 96 96 95 Oxygen Delivery Me thod Room Air Room Air Room Air Oxygen Flow Rate 01/11/22 08:55 01/11/22 14:00 Temperature 96.7 F L 98.0 F Pulse Rate [Left R adial] 85 99 Respiratory Rate 16 16 Blood Pressure [Le ft Arm] 164/96 H 130/78 Pulse Oximetry 97 99 Oxygen Delivery Me thod Room Air Room Air Oxygen Flow Rate 0 0 Documenting provider has reviewed patient's vital signs: yes
--- NOTE | 2022-01-11 16:50 | PC.NURSE ---
PATIENT PLEASANT AND COOPERATIVE, FLAT AFFECT, REDUCED INTERACTIONS, UP AD ROSALVA WITH WALKER, POOR HYGIENE NOTED, DECLINED ORAL CARE, DECLINING PAIN, NAPPED MOST OF AFTERNOON.
[2022-01-11 19:00] VITALS: BP 115/70; PULSE 86; RESP 18; TEMP 36.2; O2SAT 98
[2022-01-11] MEDS: OMEPRAZOLE 20 MG CAPSULE DR PO (20:54)
[2022-01-11 23:00] VITALS: PULSE 86; RESP 18
[2022-01-12 04:20] VITALS: RESP 20
--- NOTE | 2022-01-12 06:43 | PC.NURSE ---
END OF SHIFT NOTE: PT AMBULATES INDEPENDENTLY WITH WALKER IN ROOM. PT ON RESTFUL NIGHT VITALS. LSCTA. VSS ON RA; AFEBRILE. PT DENIES CP, SOB, N/V. NO PAIN REPORTED. UNEVENTFUL NIGHT.
[2022-01-12 08:00] VITALS: BP 149/101; PULSE 97; RESP 18; TEMP 36.6; O2SAT 98
[2022-01-12] MEDS: dilTIAZem 240 MG CAP (CD) PO (08:16)
[2022-01-12] MEDS: MAGNESIUM OXIDE 400 MG TABLET PO (08:17)
[2022-01-12] MEDS: POTASSIUM CHLORIDE 10 MEQ CAPSULE ER 20 MEQ PO (08:17)
[2022-01-12] MEDS: THIAMINE 100 MG TABLET PO (08:17)
[2022-01-12] MEDS: RIVAROXABAN 10 MG TABLET 20 MG PO (08:17)
[2022-01-12 15:17] VITALS: BP 142/78; PULSE 68; RESP 18; TEMP 36.5; O2SAT 97
--- NOTE | 2022-01-12 15:43 | PM.IMPN1 ---
Progress Note: A&P Assessment and plan (1) Alcoholism: Status: Acute (2) Wernicke-Korsakoff syndrome: Problem details: Altered mental status with lethargy and difficulty speaking on admission that improved after banana bag. Persistent tremor. Daughter has been granted emergency guardianship through the court system for placement and disposition planning. Status: Acute (3) Alcohol withdrawal: Status: Acute (4) Rhabdomyolysis: Status: Acute (5) Hypokalemia: Status: Acute (6) Hematuria: Status: Acute (7) Thrombocytopenia: Status: Acute (8) Elevated troponin: Problem details: peak 0.1, asymptomatic. TTE completed 01/02: 1. Normal LV size, normal wall thickness, normal global systolic function with an estimated EF of 55 - 60%. 2. Basal inferior segment and basal septum segment are abnormal. 3. Right ventricular cavity size is mildly enlarged, global systolic RV function is normal. 4. The aortic valve is trileaflet and sclerotic, no stenosis and no regurgitation. 5. Mildly enlarged left atrium. 6. The ascending aorta is dilated with a maximal diameter of 4.0 cm. Status: Acute (9) Atrial fibrillation with RVR: Problem details: On Diltiazem for rate control and Rivaroxaban for anticoagulation. Status: Acute (10) Tobacco abuse: Status: Acute (11) Depression: Status: Acute Subjective Time Seen by Provider: 08:00 Date Seen: 01/12/22 Interval history: Hospital Day number 12. 67-year-old man who still does not appreciate exactly why he is in the hospital or how he ended up here. He states that he feels fine. Again he asks me, ?when can I go home? ? He seems to have a better grasp that we are awaiting a safe disposition plan for him. He expresses frustration but willingness to proceed at this juncture. Denies any chest heaviness, pressure, tightness, or pain. Denies any dyspnea or cough. Denies any syncope or near-syncope. Denies palpitations. Denies nausea or vomiting. Appetite is improving. Tolerating oral intake. States bowel and bladder function are satisfactory. Acknowledges that he has difficulty standing and walking. Doing adequately with use of walker. Exam Const: Vital Signs, click to edit/add: Vital Signs - 24 hr 01/11/22 19:00 01/11/22 23:00 01/11/22 23:00 Temperature 97.2 F L Pulse Rate [Left R adial] 86 86 Respiratory Rate 18 18 18 Blood Pressure [Le ft Arm] Blood Pressure [Ri ght Arm] 115/70 Pulse Oximetry 98 Oxygen Delivery Ri thod Room Air Room Air Oxygen Flow Rate 0 0 01/12/22 04:20 01/12/22 08:00 01/12/22 15:17 Temperature 97.8 F 97.7 F Pulse Rate [Left R adial] 97 68 Respiratory Rate 20 18 18 Blood Pressure [Le ft Arm] 149/101 H 142/78 H Blood Pressure [Ri ght Arm] Pulse Oximetry 98 97 Oxygen Delivery Ri thod Room Air Room Air Oxygen Flow Rate 0 0
--- NOTE | 2022-01-12 16:05 | PC.SOCIAL ---
Discharge plan: Received call from [facility] stating they can not accept pt due to his insurance being out of network. THey are aware pt has medical assistance pending but state that it is a financial risk they are not willing to accept. Spoke with dtr by phone and updated her on this decision. Dtr requested information be sent to [facility] facilities in [facility], and [place]. Called central intake line for [facility] at [phone] and provided information on referral. This information will be shared by intake with [facility], [place] and [facility] facilities. Also received a call from [facility] stating they can re-evaluate pt with Medical Assistance pending. Faxed a packet of information to each of these facilities and awaiting call back from these five SNF facilities with decision on admit. remelt worker to follow up as needed.
--- NOTE | 2022-01-12 16:18 | PC.NURSE ---
PATIENT PLEASANT WITH STAFFING ALTHOUGH FLAT AFFECT NOTED AND REDUCED INTERACTIONS, UP AD ROSALVA WITH WALKER TOLERATING WELL, PATIENT STATED BOWEL MOVEMENT TODAY NORMAL, TOLERATING REGULAR DIET EATING 100% OF MEALS, DECLINING SHOWER, NAPPING MOST OF AFTERNOON.
[2022-01-12 19:25] VITALS: BP 137/89; PULSE 89; RESP 20; TEMP 36.5; O2SAT 98
[2022-01-12] MEDS: OMEPRAZOLE 20 MG CAPSULE DR PO (20:20)
[2022-01-12 23:00] VITALS: PULSE 89; RESP 20
--- NOTE | 2022-01-13 06:37 | PC.NURSE ---
END OF SHIFT NOTE: PT PLEASANT AND COOPERATIVE. AMBULATES INDEPENDENTLY WITHIN ROOM WITH WALKER. LSCTA. PT DENIES CP, SOB, N/V. VSS ON RA; AFEBRILE. DENIES PAIN. RESTFUL NIGHT VITALS
[2022-01-13 08:00] VITALS: BP 145/94; PULSE 76; RESP 18; TEMP 36.1; O2SAT 99
[2022-01-13] MEDS: RIVAROXABAN 10 MG TABLET 20 MG PO (08:30)
[2022-01-13] MEDS: MAGNESIUM OXIDE 400 MG TABLET PO (08:30)
[2022-01-13] MEDS: POTASSIUM CHLORIDE 10 MEQ CAPSULE ER 20 MEQ PO (08:30)
[2022-01-13] MEDS: THIAMINE 100 MG TABLET PO (08:30)
[2022-01-13] MEDS: dilTIAZem 240 MG CAP (CD) PO (08:30)
--- NOTE | 2022-01-13 10:45 | P.IMPN_ITS ---
Progress Note: A&P Assessment and plan (1) Alcoholism: Status: Acute Assessment and Plan: Still has poor insight into this disease process that he suffers from. (2) Wernicke-Korsakoff syndrome: Problem details: Altered mental status with lethargy and difficulty speaking on admission that improved after banana bag. Persistent tremor. Daughter has been granted emergency guardianship through the court system for placement and disposition planning. Status: Acute Assessment and Plan: Limited understanding and insight into this complication of his alcoholism. (3) Alcohol withdrawal: Status: Acute Assessment and Plan: Resolved. (4) Rhabdomyolysis: Status: Acute Assessment and Plan: Resolved. (5) Hypokalemia: Status: Acute Assessment and Plan: Resolved (6) Hematuria: Status: Acute Assessment and Plan: Resolved. (7) Thrombocytopenia: Status: Acute Assessment and Plan: Resolved. (8) Elevated troponin: Problem details: peak 0.1, asymptomatic. TTE completed 01/02: 1. Normal LV size, normal wall thickness, normal global systolic function with an estimated EF of 55 - 60%. 2. Basal inferior segment and basal septum segment are abnormal. 3. Right ventricular cavity size is mildly enlarged, global systolic RV function is normal. 4. The aortic valve is trileaflet and sclerotic, no stenosis and no regurgitation. 5. Mildly enlarged left atrium. 6. The ascending aorta is dilated with a maximal diameter of 4.0 cm. Status: Acute Assessment and Plan: Resolved. (9) Atrial fibrillation with RVR: Problem details: On Diltiazem for rate control and Rivaroxaban for anticoagulation. Status: Acute Assessment and Plan: Rate controlled and anticoagulated. (10) Tobacco abuse: Status: Acute Assessment and Plan: Not actively using at this time. (11) Depression: Status: Acute Assessment and Plan: May be driving his voracious appetite at this time. Will add low-dose sertraline for mood stabilization. Plan 1. Reviewed impression with patient. 2. Answered his questions. 3. Recommended above interventions which he is agreeable to. 4. Continue with efforts to establish disposition beyond current hospital stay. Time Spent With Patient Total time spent: 20 minutes Subjective Time Seen by Provider: 08:00 Date Seen: 01/13/22 Interval history: Hospital Day number 13. 67-year-old man, who now seems to understand that he is not able to simply leave the hospital and go home. He now seems to understand somewhat that because he was previously unable to care for himself with the available resources that he had, including his fiancee, that currently his daughter has been granted temporary emergency guardianship for him and we are awaiting acceptance from another facility to help him safely meet his needs as the court system continues to weigh in on the duration of his guardianship for his welfare and well-being. He seems to have a better grasp that we are awaiting a safe disposition plan for him. He continues to express frustration but willingness to proceed with this planned approach at this juncture. Denies any chest heaviness, pressure, tightness, or pain. Denies any dyspnea or cough. Denies any syncope or near-syncope. Denies palpitations. Denies nausea or vomiting. Appetite is actually quite remarkable. Is eating 6 or more meals per day now. Tolerating oral intake. States bowel and bladder function are sat isfactory. Acknowledges that he has difficulty standing and walking. Doing adequately with use of walker. Exam Narrative: Exam Narrative: Less angry. More accepting. Cooperative. Friendly. Short in his responses. Alert, oriented to self, place, in part to time, and in part to situation. Lungs remain clear to auscultation. Heart tones with regular rhythm. Abdomen benign. Extremities without edema. Transfers and ambulates with use of 2 wheeled walker, still has broad-based gait. Still has limited insight into his underlying condition. Still has difficulties with safe judgment, including eating voraciously day and night. Const: Vital Signs, click to edit/add: Vital Signs - 24 hr 01/12/22 15:17 01/12/22 19:25 01/12/22 23:00 Temperature 97.7 F 97.7 F Pulse Rate [Left R adial] 68 89 89 Respiratory Rate 18 20 20 Blood Pressure [Le ft Arm] 142/78 H 137/89 Pulse Oximetry 97 98 Oxygen Delivery Me thod Room Air Room Air Oxygen Flow Rate 0 0 01/13/22 08:00 Temperature 97.0 F L Pulse Rate [Left R adial] 76 Respiratory Rate 18 Blood Pressure [Le ft Arm] 145/94 H Pulse Oximetry 99 Oxygen Delivery Me thod Room Air Oxygen Flow Rate 0 Documenting provider has reviewed patient's vital signs: yes
[2022-01-13 11:32] VITALS: BMI 24.7
[2022-01-13] MEDS: SERTRALINE 50 MG TABLET 25 MG PO (13:20)
[2022-01-13 15:19] VITALS: BP 136/83; PULSE 75; RESP 18; TEMP 36.2; O2SAT 97
[2022-01-13] MEDS: LOPERAMIDE HCL 2 MG CAPSULE PO (16:09)
--- NOTE | 2022-01-13 16:53 | PC.NURSE ---
PATIENT UP AD ROSALVA WITH STEADY GAIT, TOLERATING REGULAR DIET ALTHOUGH IS AVERAGING 4 MEALS A DAY, NUTRITION SPOKE WITH PATIENT AND BRICKLAYER TENDER ALSO SPOKE WITH PATIENT ON 3 MEALS A DAY AND ABLE TO HAVE AN AFTERNOON OR MORNING SNACK, PATIENT VERBALIZED UNDERSTANDING, PATIENT MENTIONED HAVING SOME SOFTER STOOLS TODAY, MD UPDATED AND IMODIUM ORDER OBTAINED, DECLINING PAIN.
[2022-01-13 20:10] VITALS: BP 132/75; PULSE 83; RESP 20; TEMP 36.4; O2SAT 95
[2022-01-13] MEDS: OMEPRAZOLE 20 MG CAPSULE DR PO (20:17)
--- NOTE | 2022-01-13 22:42 | PC.NURSE ---
made aware of positive c-diff sample. Orders received for oral vancomycin.
[2022-01-13 23:00] VITALS: PULSE 83; RESP 20
[2022-01-13 23:16] LABS: C.Difficile POSITIVE (Negative); CDIFFEPI 027 PRESUMPTIVE NEGATIVE (Negative)
[2022-01-14] MEDS: VANCOMYCIN 125 MG CAPSULE PO ×5 (04:23→20:59)
--- NOTE | 2022-01-14 07:43 | PC.NURSE ---
END OF SHIFT NOTE: PT VSS ON RA. RESTFUL NIGHT VITALS. PT ON/OFF SLEEPING THROUGHOUT THE NIGHT. STOOL SAMPLE POSITIVE FOR C DIFF; ENHANCED PRECAUTIONS IN PLACE. STARTED ON ORAL VANCOMYCIN.?PT IS INDEPENDENT WITH WALKER WITHIN ROOM. DENIES CP, SOB, N/V. LSCTA.
[2022-01-14 09:28] VITALS: BP 147/79; PULSE 87; RESP 18; TEMP 36.3; O2SAT 99
[2022-01-14] MEDS: POTASSIUM CHLORIDE 10 MEQ CAPSULE ER 20 MEQ PO (09:30)
[2022-01-14] MEDS: dilTIAZem 240 MG CAP (CD) PO (09:31)
[2022-01-14] MEDS: RIVAROXABAN 10 MG TABLET 20 MG PO (09:31)
[2022-01-14] MEDS: SERTRALINE 50 MG TABLET 25 MG PO (09:32)
[2022-01-14] MEDS: MAGNESIUM OXIDE 400 MG TABLET PO (09:32)
[2022-01-14] MEDS: THIAMINE 100 MG TABLET PO (09:32)
--- NOTE | 2022-01-14 13:17 | P.IMPN_ITS ---
Progress Note: A&P Assessment and plan (1) Alcoholism: Status: Acute Assessment and Plan: 1. With his cognitive deficits it is unclear to me that he could benefit from chemical dependency treatment at this juncture. This may need to be reassessed in the future. (2) Wernicke-Korsakoff syndrome: Problem details: Anterograde and retrograde memory deficits, poor executive function, lacks insight, poor judgment, apathy, with relative preservation of long-term memory and some other cognitive skills. Status: Acute Assessment and Plan: 1. This is the primary limiting deficit he has relative to his ability to make informed decisions on his own behalf. His ability to receive, process, synthesize new information is greatly reduced. (3) Alcohol withdrawal: Status: Acute Assessment and Plan: 1. Resolved (4) Rhabdomyolysis: Status: Acute Assessment and Plan: 1. Resolved (5) Hypokalemia: Status: Acute Assessment and Plan: 1. Resolved (6) Hematuria: Status: Acute Assessment and Plan: 1. Resolved (7) Thrombocytopenia: Status: Acute Assessment and Plan: 1. Resolved (8) Elevated troponin: Problem details: peak 0.1, asymptomatic. TTE completed 01/02: 1. Normal LV size, normal wall thickness, normal global systolic function with an estimated EF of 55 - 60%. 2. Basal inferior segment and basal septum segment are abnormal. 3. Right ventricular cavity size is mildly enlarged, global systolic RV function is normal. 4. The aortic valve is trileaflet and sclerotic, no stenosis and no regurgitation. 5. Mildly enlarged left atrium. 6. The ascending aorta is dilated with a maximal diameter of 4.0 cm. Status: Acute (9) Atrial fibrillation with RVR: Problem details: On Diltiazem for rate control and Rivaroxaban for anticoagulation. Status: Acute Assessment and Plan: 1. Resolved (10) Tobacco abuse: Status: Acute Assessment and Plan: 1. No longer smoking tobacco since in the hospital (11) Depression: Status: Acute Assessment and Plan: 1. This may warrant additional attention. (12) C. difficile diarrhea: Problem details: 10 day oral vancomycin 125 mg QID initiated 01/14/2022 Status: Acute (13) Difficulty agreeing with care plan: Problem details: Daughter has temporary emergency guardianship through the court due to patient's inability to make safe health care decisions. Status: Acute Assessment and Plan: 1. Patient insists on going home with his fiancee. He believes that between the 2 of them they are both quite capable of taking care of him. He is not able to grasp his current presentation to the hospital and the implications associated there with. He has very little recall of those events. 2. Working with the patient's daughter, Mei Lozano, telephone [phone]. Spoke with her today. Initially she was not agreeable to transferring him to the [facility] in [place]. After we spoke she changed her mind and was agreeable to transferring her father to the [facility] for ongoing cares. Our outreach and education social worker is again working with the staff at the [facility] to see if they still accept him for cares. Between the time that they 1st accepted him, and then spoke with the daughter originally, they expressed hesitation about accepting him because of the difficulties they were having in communicating with the daughter. Our outreach and education social worker is trying to see if they will still accept him. (14) Chronic hip pain: Problem details: Now on acetaminophen 650 mg 4 times daily Status: Acute Assessment and Plan: 1. I am trying to not use any opioids with him. 2. If schedule acetaminophen is insufficient, may need to consider additional pharmacologic possibilities. Plan 1. Reviewed my impressions and recommendations with the patient. 2. Reviewed my impressions and recommendations with his daughter, Mei Lozano. 3. We are still waiting placement at this juncture. Our socially responsible investment adviser staff continue to actively work in an effort to try to establish a safe disposition plan for him. Time Spent With Patient Total time spent: 40 minutes Subjective Time Seen by Provider: 08:00 Date Seen: 01/14/22 Interval history: Hospital Day number 14. 67-year-old man, with a complex and dysfunctional presentation to the hospital. In retrospect patient presented after over 2 days of being on the floor in his home with his fiancee continuing to bring him food and alcoholic beverages. After roughly 60 hours of being on the floor, either the fiance or the patient c alled EMS and they brought him into the hospital. Up until that time he was a daily drinker of alcohol. On presentation to the hospital he was in rhabdomyolysis. He was unkempt and confused. He started to go through alcohol withdrawals. Had multiple hematologic, electrolyte, metabolic deficiencies. Had obvious neurologic deficits including on presentation inability to sit up, transfer, or stand. His understanding, awareness, insight about his presentation were obviously totally impaired on 1st assessment. In hospital he has stabilized as much as he can. His physical abilities seem to have plateaued. He still has hip pain which is chronic for him. He has a broad-based gait with ataxia which is as stable as it can be at this juncture. He is now able to feed himself. He is able to in great measure take care of his activities of daily living. The biggest remaining concern has to do with deficits in association with the Wernicke-Korsakoff syndrome that he still has, which we are treating with thiamin. He still has obvious deficits in anterograde and retrograde memory, apathy, decreased recall, decrease insight, poor judgment, with relative preservation and long-term memory and other cognitive skills. Given the manner in which he presented to the hospital, it is clear that patient does not have the ability to make safe healthcare decisions at this juncture. During the 1st week that he was here in the hospital his daughter went through the court system and has been appointed temporary emergency legal guardian for her father. She is making disposition plans on his behalf at this time. Additional legal measures are still in process. As I visit with the patient today, unfortunately he again asks me when he gets to go home. Does not seem to remember from day-to-day our conversations about his discharge disposition plan from the hospital, including that we are still looking for a safe place for him to be discharged to which is not his home with his fiancee. We also again discussed that his daughter is his temporary emergency guardian. At this juncture he becomes angry again, making statements such as I can take care of myself, my fiance and I have been taking good care of me for a long time, all I need is my fiance, my daughter does not have my best interest in mind. Patient developed loose stools yesterday. We check the stools for C diff and was positive. We initiated vancomycin 125 mg orally 4 times daily. He has had only had 1 soft stool today, formed. This is improved from yesterday are ready. He has not had fevers, rigors, diaphoresis. Continues to eat without nausea or vomiting. Has had no blood loss with this. Denies any chest heaviness, pressure, tightness, or pain. Denies any dyspnea or cough. Denies any syncope or near-syncope. Denies palpitations. Denies nausea or vomiting. Appetite is actually quite remarkable. Is eating 6 or more meals per day now. Tolerating oral intake. States bladder function is satisfactory. Acknowledges that he has difficulty standing and walking. Doing adequately with use of walker. Still has baseline hip pain which is chronic for him. I just added scheduled acetaminophen for him. Trying not to add an opioid for him. Exam Narrative: Exam Narrative: Alert, oriented to self and place. In part oriented to time and situation. Remains very focused at the idea of leaving the hospital going back to his home with his fiancee. Becomes angry when discussing his daughter's current guardianship over him. Obviously lacks insight and judgment about his or his fiancee's ability to care for him safely. Lungs are clear to auscultation. Heart tones with regular rhythm. Abdomen with active bowel sounds, soft, nontender. Extremities without edema. Broad-based gait. Transfers and ambulates with use of front wheeled roller walker. No tremor or asterixis. Const: Vital Signs, click to edit/add: Vital Signs - 24 hr 01/13/22 15:19 01/13/22 20:10 01/13/22 23:00 Temperature 97.1 F L 97.5 F L Pulse Rate [Left R adial] 75 83 83 Respiratory Rate 18 20 20 Blood Pressure [Le ft Arm] 136/83 132/75 Pulse Oximetry 97 95 Oxygen Delivery Me thod Room Air Room Air Oxygen Flow Rate 0 0 01/14/22 09:28 Temperature 97.4 F L Pulse Rate [Left R adial] 87 Respiratory Rate 18 Blood Pressure [Le ft Arm] 147/79 H Pulse Oximetry 99 Oxygen Delivery Me thod Room Air Oxygen Flow Rate Documenting provider has reviewed patient's vital signs: yes Labs Labs: Laboratory Results - last 24 hr 01/13/22 20:20 Stl C.difficile Tox PCR POSITIVE A* St C. diff Tox Epid 027 PRESUMPTIVE NEGATIVE
[2022-01-14] MEDS: ACETAMINOPHEN 325 MG TABLET 650 MG PO ×3 (13:41→21:01)
[2022-01-14 13:42] VITALS: BP 163/99; PULSE 97; RESP 20; TEMP 36.4; O2SAT 96
[2022-01-14 15:00] VITALS: PULSE 92; RESP 16
--- NOTE | 2022-01-14 16:11 | PC.SOCIAL ---
Discharge planning: Received call from [facility] stating they may be able to accept pt today under Medical Assistance if dtr is willing to pay them the amount of ind pt has over the $3000 asset limit so that he is financially eligible for Medical Assistance. Spoke with dtr Mei who stated she is willing to do this and will call financial department at [facility] to confirm. Received call back from [facility] stating dtr spoke with them and was not willing to sell pt's house and that they were not willing to take financial risk of pt not being eligible for Medical Assistance. Spoke with dtr who stated she had questions about a nursing home home stay verus a MEdical Assistance covered stay. Connected dtr with physician for medical questions. After that call, dtr states she agrees with discharge to [facility] under Medical Assistance pending and will do whatevee is needed with pt's property to qualify him for Medical Assistance. Called bacl to [facility] and was told they are no longer interested in admitting pt as they are concerned about follow through with MA application. Spoke with Sita ([phone]) in the financial department who agreed to reconsider pt for admission on Monday. Sita plans to reach out to [facility] financial services to get verification of expected Medical Assistance coverage. Sita will call back with decision on admit on Monday. PAS already completed and submitted. Dtr is aware of this plan. beam worker to follow up as needed.
[2022-01-14 18:40] VITALS: BP 176/126; PULSE 82; RESP 18; TEMP 36.5; O2SAT 98
--- NOTE | 2022-01-14 18:48 | PC.NURSE ---
shift note: pt up indept with walker. IV intact. pt tolerating diet. Lt hip pain 0/10.
[2022-01-14] MEDS: OMEPRAZOLE 20 MG CAPSULE DR PO (20:59)
[2022-01-14 21:03] VITALS: BP 158/77; PULSE 86; RESP 18; TEMP 36.5; O2SAT 98
[2022-01-14 23:00] VITALS: PULSE 86; RESP 18
[2022-01-15 01:00] VITALS: RESP 20
--- NOTE | 2022-01-15 04:21 | PC.NURSE ---
restful vs, patient appears to have slept soundly overnight, up ad teo with walker in room.
[2022-01-15] MEDS: POTASSIUM CHLORIDE 10 MEQ CAPSULE ER 20 MEQ PO (08:54)
[2022-01-15] MEDS: RIVAROXABAN 10 MG TABLET 20 MG PO (08:55)
[2022-01-15] MEDS: THIAMINE 100 MG TABLET PO (08:55)
[2022-01-15] MEDS: VANCOMYCIN 125 MG CAPSULE PO ×4 (08:55→21:49)
[2022-01-15] MEDS: SERTRALINE 50 MG TABLET 25 MG PO (08:55)
[2022-01-15] MEDS: ACETAMINOPHEN 325 MG TABLET 650 MG PO ×4 (08:56→21:50)
[2022-01-15] MEDS: dilTIAZem 240 MG CAP (CD) PO (08:56)
[2022-01-15] MEDS: MAGNESIUM OXIDE 400 MG TABLET PO (08:56)
[2022-01-15 08:57] VITALS: BP 152/88; PULSE 77; RESP 18; TEMP 36.4; O2SAT 98
--- NOTE | 2022-01-15 13:23 | P.IMPN_ITS ---
Progress Note: A&P Assessment and plan (1) Alcoholism: Status: Acute Assessment and Plan: Pending disposition plan (2) Wernicke-Korsakoff syndrome: Problem details: Anterograde and retrograde memory deficits, poor executive function, lacks insight, poor judgment, apathy, with relative preservation of long-term memory and some other cognitive skills. Status: Acute Assessment and Plan: Once his diarrhea resolves consider introducing lactulose (3) Alcohol withdrawal: Status: Acute Assessment and Plan: Resolved (4) Rhabdomyolysis: Status: Acute Assessment and Plan: Resolved (5) Hypokalemia: Status: Acute Assessment and Plan: Resolved (6) Hematuria: Status: Acute Assessment and Plan: Resolved (7) Thrombocytopenia: Status: Acute Assessment and Plan: Chronic due to cirrhosis (8) Elevated troponin: Problem details: peak 0.1, asymptomatic. TTE completed 01/02: 1. Normal LV size, normal wall thickness, normal global systolic function with an estimated EF of 55 - 60%. 2. Basal inferior segment and basal septum segment are abnormal. 3. Right ventricular cavity size is mildly enlarged, global systolic RV function is normal. 4. The aortic valve is trileaflet and sclerotic, no stenosis and no regurgitation. 5. Mildly enlarged left atrium. 6. The ascending aorta is dilated with a maximal diameter of 4.0 cm. Status: Acute Assessment and Plan: No current chest pain. (9) Atrial fibrillation with RVR: Problem details: On Diltiazem for rate control and Rivaroxaban for anticoagulation. Status: Acute Assessment and Plan: Asymptomatic (10) Tobacco abuse: Status: Acute (11) Depression: Status: Acute (12) C. difficile diarrhea: Problem details: 10 day oral vancomycin 125 mg QID initiated 01/14/2022 Status: Acute Assessment and Plan: Better today. Once his diarrhea resolves consider introducing lactulose (13) Difficulty agreeing with care plan: Problem details: Daughter has temporary emergency guardianship through the court due to patient's inability to make safe health care decisions. Status: Acute Assessment and Plan: Work with daughter and nursing home social worker for discharge planning (14) Chronic hip pain: Problem details: Now on acetaminophen 650 mg 4 times daily Status: Acute Plan Continue in hospital for cares pending discharge plan. Time Spent With Patient Total time spent: Total time spent today is 40 minutes, 30 minutes in coordination of care and discussing with patient and other providers ongoing management of alcohol withdrawal, C diff and disposition Subjective Date Seen: 01/15/22 Interval history: 67-year-old male seen in followup of hospital admission for complications of alcohol abuse including Wernicke-Korsakoff syndrome and also recent C diff infection. His diarrhea is better. He is able to eat. He is not having abdominal pain or fever. He is unable to give significant history about recent events. He is asking to be discharged back home again. He is not having significant behavioral problems. Exam Narrative: Exam Narrative: He is alert and oriented to being in the hospital. He cannot give much history about recent events. Does not recall much detail about evaluation and discussions about discharge planning. Head is without trauma. Eyes normal. Oropharynx normal. Neck is supple out mass or adenopathy. Respirations are clear to auscultation. Cardiovascular: S1, S2, regular rate and rhythm. Abdo men: Bowel sounds active. Abdomen is soft without significant tenderness or mass. External genitalia normal. Extremities also normal. Good capillary refill. No rash. Const: Vital Signs, click to edit/add: Vital Signs - 24 hr 01/14/22 13:42 01/14/22 15:00 01/14/22 18:40 Temperature 97.6 F 97.7 F Pulse Rate [Left R adial] 97 92 82 Respiratory Rate 20 16 18 Blood Pressure [Le ft Arm] 163/99 H 176/126 H Blood Pressure [Ri ght Arm] Pulse Oximetry 96 98 Oxygen Delivery Me thod Room Air Room Air Oxygen Flow Rate 01/14/22 21:03 01/14/22 23:00 01/15/22 01:00 Temperature 97.7 F Pulse Rate [Left R adial] 86 86 Respiratory Rate 18 18 20 Blood Pressure [Le ft Arm] Blood Pressure [Ri ght Arm] 158/77 H Pulse Oximetry 98 Oxygen Delivery Me thod Room Air Oxygen Flow Rate 0 01/15/22 08:57 Temperature 97.6 F Pulse Rate [Left R adial] 77 Respiratory Rate 18 Blood Pressure [Le ft Arm] 152/88 H Blood Pressure [Ri ght Arm] Pulse Oximetry 98 Oxygen Delivery Me thod Room Air Oxygen Flow Rate Documenting provider has reviewed patient's vital signs: yes
[2022-01-15 15:00] VITALS: RESP 18
--- NOTE | 2022-01-15 18:09 | PC.NURSE ---
shift note: pt up indept with walker in room. pt denies pain. Pt tolerates diet.
[2022-01-15] MEDS: OMEPRAZOLE 20 MG CAPSULE DR PO (21:49)
[2022-01-15 23:00] VITALS: RESP 18
--- NOTE | 2022-01-16 06:00 | PC.NURSE ---
shift unremarkable, patient appears to have slept most of the night, up ad teo in room.
--- NOTE | 2022-01-16 06:01 | PC.NURSE ---
shift unremarkable, patient up ad teo in room, appears to have slept well overnight.
[2022-01-16 09:01] VITALS: BP 169/111; PULSE 89; RESP 18; TEMP 36.4; O2SAT 97
[2022-01-16] MEDS: THIAMINE 100 MG TABLET PO (09:04)
[2022-01-16] MEDS: POTASSIUM CHLORIDE 10 MEQ CAPSULE ER 20 MEQ PO (09:04)
[2022-01-16] MEDS: RIVAROXABAN 10 MG TABLET 20 MG PO (09:04)
[2022-01-16] MEDS: MAGNESIUM OXIDE 400 MG TABLET PO (09:04)
[2022-01-16] MEDS: SERTRALINE 50 MG TABLET 25 MG PO (09:04)
[2022-01-16] MEDS: dilTIAZem 240 MG CAP (CD) PO (09:04)
[2022-01-16] MEDS: ACETAMINOPHEN 325 MG TABLET 650 MG PO ×4 (09:04→21:30)
[2022-01-16] MEDS: VANCOMYCIN 125 MG CAPSULE PO ×4 (09:05→21:30)
--- NOTE | 2022-01-16 13:24 | P.IMPN_ITS ---
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 Status: Acute (3) Alcohol withdrawal: Status: Acute Assessment and Plan: Resolved (4) Rhabdomyolysis: Status: Acute Assessment and Plan: Resolved (5) Hypokalemia: Status: Acute Assessment and Plan: Resolved (6) Hematuria: Status: Acute (7) Thrombocytopenia: Status: Acute (8) Elevated troponin: Problem details: peak 0.1, asymptomatic. TTE completed 01/02: 1. Normal LV size, normal wall thickness, normal global systolic function with an estimated EF of 55 - 60%. 2. Basal inferior segment and basal septum segment are abnormal. 3. Right ventricular cavity size is mildly enlarged, global systolic RV function is normal. 4. The aortic valve is trileaflet and sclerotic, no stenosis and no regurgitation. 5. Mildly enlarged left atrium. 6. The ascending aorta is dilated with a maximal diameter of 4.0 cm. Status: Acute (9) Atrial fibrillation with RVR: Problem details: On Diltiazem for rate control and Rivaroxaban for anticoagulation. Status: Acute Assessment and Plan: Doing well (10) Tobacco abuse: Status: Acute (11) Depression: Status: Acute (12) C. difficile diarrhea: Problem details: 10 day oral vancomycin 125 mg QID initiated 01/14/2022 Status: Acute Assessment and Plan: Improved (13) Difficulty agreeing with care plan: Problem details: Daughter has temporary emergency guardianship through the court due to patient's inability to make safe health care decisions. Status: Acute (14) Chronic hip pain: Problem details: Now on acetaminophen 650 mg 4 times daily Status: Acute Plan Continue in hospital pending safe discharge plan. Time Spent With Patient Total time spent: 30 minutes, 25 minutes in coordination of care discussing with patient and other providers ongoing management of C diff and neurocognitive deficits and dispo sition Subjective Date Seen: 01/16/22 Interval history: 67-year-old male seen in followup of complications of alcohol abuse and C diff infection. He reports no concerns today. He reports occasionally gets upset stomach. Reports diarrhea is better. No fever. Has been able to eat and drink. No shortness of breath. Exam Narrative: Exam Narrative: He is alert appears in no distress. Speech is normal. No tremor. Respirations are clear to auscultation. Cardiovascular: S1, S2, somewhat irregular rhythm. Abdomen is soft with mild diffuse tenderness and no mass. Extremities with trace edema. Peripheral pulses are intact. Const: Vital Signs, click to edit/add: Vital Signs - 24 hr 01/15/22 15:00 01/15/22 23:00 01/16/22 09:01 Temperature 97.5 F L Pulse Rate [Left R adial] 89 Respiratory Rate 18 18 18 Blood Pressure [Le ft Arm] 169/111 H Pulse Oximetry 97 Oxygen Delivery Me thod Room Air Documenting provider has reviewed patient's vital signs: yes
--- NOTE | 2022-01-16 17:29 | PC.NURSE ---
Shift Summary: Patient pleasant and cooperative. Up independently in room, tolerating regular diet, good appetite. Denies pain or SOB. Using call light appropriately. Bp this morning elevated, patient asymptomatic.
[2022-01-16] MEDS: OMEPRAZOLE 20 MG CAPSULE DR PO (21:30)
[2022-01-16 23:00] VITALS: PULSE 89; RESP 18
--- NOTE | 2022-01-17 06:09 | PC.NURSE ---
[id number]: shift unremarkable. patient continues up ad teo in room.
[2022-01-17] MEDS: ACETAMINOPHEN 325 MG TABLET 650 MG PO ×4 (09:01→21:45)
[2022-01-17] MEDS: THIAMINE 100 MG TABLET PO (09:01)
[2022-01-17] MEDS: MAGNESIUM OXIDE 400 MG TABLET PO (09:01)
[2022-01-17] MEDS: dilTIAZem 240 MG CAP (CD) PO (09:01)
[2022-01-17] MEDS: SERTRALINE 50 MG TABLET 25 MG PO (09:02)
[2022-01-17] MEDS: RIVAROXABAN 10 MG TABLET 20 MG PO (09:03)
--- NOTE | 2022-01-17 10:12 | PM.IMPN1 ---
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 Would benefit from chronic lactulose once this episode of C diff illness has resolved. Status: Acute (3) Alcohol withdrawal: Status: Acute Assessment and Plan: Resolved (4) Rhabdomyolysis: Status: Acute Assessment and Plan: Resolved (5) Hypokalemia: Status: Acute Assessment and Plan: Corrected (6) Thrombocytopenia: Problem details: Due to alcoholic cirrhosis Status: Acute Assessment and Plan: Chronic, stable (7) Elevated troponin: Problem details: peak 0.1, asymptomatic. TTE completed 01/02: 1. Normal LV size, normal wall thickness, normal global systolic function with an estimated EF of 55 - 60%. 2. Basal inferior segment and basal septum segment are abnormal. 3. Right ventricular cavity size is mildly enlarged, global systolic RV function is normal. 4. The aortic valve is trileaflet and sclerotic, no stenosis and no regurgitation. 5. Mildly enlarged left atrium. 6. The ascending aorta is dilated with a maximal diameter of 4.0 cm. Status: Acute Assessment and Plan: Currently no symptoms of cardiac disease (8) Atrial fibrillation with RVR: Problem details: On Diltiazem for rate control and Rivaroxaban for anticoagulation. Status: Acute (9) Tobacco abuse: Status: Acute (10) Depression: Status: Acute (11) C. difficile diarrhea: Problem details: 10 day oral vancomycin 125 mg QID initiated 01/14/2022 Status: Acute Assessment and Plan: Diarrhea has resolved. Consider adding lactulose once this episode of C diff has resolved (12) Difficulty agreeing with care plan: Problem details: Daughter has temporary emergency guardianship through the court due to patient's inability to make safe health care decisions. Status: Acute (13) Chronic hip pain: Problem details: Now on acetaminophen 650 mg 4 times daily Status: Acute (14) Hypertension: Status: Acute Assessment and Plan: Blood pressure has been consistently elevated. Will add in spironolactone for additional blood pressure control. Plan Continue in hospital pending safe discharge plan Time Spent With Patient Total time spent: Total time spent today is 20 minutes, 15 minutes in coordination of care and discussing with patient and other providers disposition plan Subjective Date Seen: 01/17/22 Interval history: 67-year-old male seen in followup of hospital admission for complications of alcohol abuse and C diff infection. Patient reports no health concerns today. He is having no diarrhea, breathing problems or significant problems with pain. He reports a good appetite and eating without difficulties. His only concern is that he would like to go home. Exam Narrative: Exam Narrative: He is alert and appears in no distress. He is pleasant and cooperative. Speech is fluent. He is oriented to his circumstances. Breathing is unlabored. He ambulates in the room without difficulties. Const: Vital Signs, click to edit/add: Vital Signs - 24 hr 01/16/22 23:00 Pulse Rate [Left R adial] 89 Respiratory Rate 18 Documenting provider has reviewed patient's vital signs: yes
[2022-01-17] MEDS: VANCOMYCIN 125 MG CAPSULE PO ×4 (11:58→21:45)
[2022-01-17] MEDS: POTASSIUM CHLORIDE 10 MEQ CAPSULE ER PO (12:10)
[2022-01-17] MEDS: SPIRONOLACTONE 25 MG TABLET PO (12:11)
[2022-01-17 12:14] VITALS: BP 130/85; PULSE 74; RESP 16; TEMP 36.6; O2SAT 98
[2022-01-17] MEDS: LOPERAMIDE HCL 2 MG CAPSULE PO ×2 (14:10→21:46)
--- NOTE | 2022-01-17 14:53 | PC.NURSE ---
shift note: vss stable. pt up indept. Pt denies pain. pt received lomotil for stated multi diarrhea stools.
[2022-01-17 15:00] VITALS: PULSE 82; RESP 18
[2022-01-17] MEDS: OMEPRAZOLE 20 MG CAPSULE DR PO (21:45)
[2022-01-17 21:52] VITALS: BP 145/100; PULSE 82; RESP 16; TEMP 36.6; O2SAT 97
[2022-01-17] MEDS: MELATONIN 3 MG TABLET PO (23:31)
[2022-01-18 00:36] VITALS: BP 152/99; PULSE 89; RESP 16; TEMP 36.2; O2SAT 97
--- NOTE | 2022-01-18 04:13 | PC.NURSE ---
VSS RA on restful nite VS. Denies pain. Up ad teo in room tolerating diet ind w/cares.
[2022-01-18 06:38] LABS: Chloride* 104 mmol/L (96-114); Sodium* 140 mmol/L (135-149)
[2022-01-18 06:41] LABS: Blood Urea Nitrogen* 24 mg/dL (7-30); Carbon Dioxide* 31 mmol/L (20-32); Creatinine* 0.9 mg/dL (0.5-1.5); Est. Creatinine Clearance* 76.35; Estimated Glomerular Filt Rate 94 ml/min; Potassium* 4.4 mmol/L (3.6-5.1)
[2022-01-18 06:42] LABS: Glucose* 115 mg/dL (60-115)
[2022-01-18 08:00] VITALS: BP 135/74; PULSE 76; RESP 18; TEMP 36.2; O2SAT 96
[2022-01-18] MEDS: ACETAMINOPHEN 325 MG TABLET 650 MG PO ×4 (09:27→20:38)
[2022-01-18] MEDS: VANCOMYCIN 125 MG CAPSULE PO ×4 (09:28→20:38)
[2022-01-18] MEDS: SPIRONOLACTONE 25 MG TABLET PO (09:28)
[2022-01-18] MEDS: RIVAROXABAN 10 MG TABLET 20 MG PO (09:28)
[2022-01-18] MEDS: THIAMINE 100 MG TABLET PO (09:28)
[2022-01-18] MEDS: POTASSIUM CHLORIDE 10 MEQ CAPSULE ER PO (09:28)
[2022-01-18] MEDS: dilTIAZem 240 MG CAP (CD) PO (09:28)
[2022-01-18] MEDS: SERTRALINE 50 MG TABLET 25 MG PO (09:29)
[2022-01-18] MEDS: MAG HYDROX/ALUMINUM HYD/SIMETH 30 ML ORAL.SUSP 15 ML PO (09:30)
[2022-01-18] MEDS: CARBOXYMETHYLCELLULOSE (REFRESH PLUS) TEARS 1 DROP EYE-BOTH (09:30)
[2022-01-18] MEDS: MAGNESIUM OXIDE 400 MG TABLET PO (09:35)
[2022-01-18] MEDS: LOPERAMIDE HCL 2 MG CAPSULE PO (13:06)
--- NOTE | 2022-01-18 14:06 | PC.NURSE ---
Pt calm and cooperative with cares. No IV site. Refusing teds and SCDs. No dysphagia with medications, eupneic. Please see eMar for medications given on day shift. Remains on C-diff precautions. Pt had 5 slightly formed BMs mixed with urine. Immodium given once. Good appetite. Continue plan of care. UAL in room with walker. Pt is no longer a fall risk.
--- NOTE | 2022-01-18 15:29 | PC.SOCIAL ---
Left messages with admissions and with [facility] if [facility] are able to accept pt. Also called [facility] in [place] to see if they had availability.
--- NOTE | 2022-01-18 15:50 | PM.IMPN1 ---
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 Would benefit from chronic lactulose once this episode of C diff illness has resolved. Status: Acute (3) Alcohol withdrawal: Status: Acute (4) Rhabdomyolysis: Problem details: Resolved Status: Acute (5) Hypokalemia: Problem details: Resolved Status: Acute (6) Thrombocytopenia: Problem details: Due to alcoholic cirrhosis Status: Acute (7) Elevated troponin: Problem details: peak 0.1, asymptomatic. TTE completed 01/02: 1. Normal LV size, normal wall thickness, normal global systolic function with an estimated EF of 55 - 60%. 2. Basal inferior segment and basal septum segment are abnormal. 3. Right ventricular cavity size is mildly enlarged, global systolic RV function is normal. 4. The aortic valve is trileaflet and sclerotic, no stenosis and no regurgitation. 5. Mildly enlarged left atrium. 6. The ascending aorta is dilated with a maximal diameter of 4.0 cm. Status: Acute (8) Atrial fibrillation with RVR: Problem details: On Diltiazem for rate control and Rivaroxaban for anticoagulation. Status: Acute (9) Tobacco abuse: Status: Acute (10) Depression: Status: Acute (11) C. difficile diarrhea: Problem details: 10 day oral vancomycin 125 mg QID initiated 01/14/2022. Diarrhea perhaps a little worse today. Continue to monitor. Status: Acute (12) Difficulty agreeing with care plan: Problem details: Daughter has temporary emergency guardianship through the court due to patient's inability to make safe health care decisions. Status: Acute (13) Chronic hip pain: Problem details: Now on acetaminophen 650 mg 4 times daily Status: Acute (14) Hypertension: Problem details: Blood pressure improved today on spironolactone. Continue to monitor blood pressure and electrolytes. Status: Acute Plan Continue in hospital pending safe discharge plan. Time Spent With Patient Total time spent: Total time spent today is 20 minutes, 15 minutes in coordination care and discussing with patient and other providers ongoing evaluation management Subjective Date Seen: 01/18/22 Interval history: 67-year-old male seen in followup of complications of alcohol abuse and C diff infection. Patient reports that he has had a couple episodes of diarrhea today. He has been able to eat normally. No fever. No shortness of breath or chest pain. He is anxious to leave and go home. No other concerns today. Exam Narrative: Exam Narrative: He is alert and appears in no distress. Speech is normal. Respirations are clear to auscultation. Cardiovascular: S1, S2, regular rate and rhythm. No murmur gallop or rub. Abdomen: Bowel sounds active. Abdomen is soft. He has mild diffuse tenderness. No mass. No peritonitis. Const: Vital Signs, click to edit/add: Vital Signs - 24 hr 01/17/22 21:52 01/18/22 00:36 01/18/22 08:00 Temperature 97.8 F 97.2 F L 97.1 F L Pulse Rate [Left R adial] 82 89 76 Respiratory Rate 16 16 18 Blood Pressure [Ri ght Arm] 145/100 H 152/99 H 135/74 Pulse Oximetry 97 97 96 Oxygen Delivery Me thod Room Air Room Air Room Air Oxygen Flow Rate 0 Documenting provider has reviewed patient's vital signs: yes Labs Labs: Laboratory Results - last 24 hr 01/18/22 05:42 Sodium 140 Potassium 4.4 Chloride 104 Carbon Dioxide 31 BUN 24 Creatinine 0.9 Estimated Creat Clear 76.35 Estimated GFR 94 Glucose 115 Calcium 9.0
[2022-01-18 17:02] VITALS: BP 155/82; PULSE 71; RESP 18; TEMP 36.3; O2SAT 92
[2022-01-18 17:05] VITALS: PULSE 71; RESP 18
--- NOTE | 2022-01-18 18:50 | PC.NURSE ---
End of Shift: Pt has been pleasant and cooperative. pt said pain is normal for him and he doesn't want anything for it. No IV. he is up ab teo with a walker. he is eating, drinking and voiding.
[2022-01-18] MEDS: OMEPRAZOLE 20 MG CAPSULE DR PO (20:38)
--- NOTE | 2022-01-18 21:35 | PC.NURSE ---
C/o abd pain gave bossman Tylenol. Up ad teo in room ind w/cares and tolerating diet. Reports 2BMs today
--- NOTE | 2022-01-19 06:47 | PC.NURSE ---
Shift Note : Pt pleasant and cooperative, Pt slept all night, up ad teo to BR. No BM reported by Pt overnight.
[2022-01-19 08:08] VITALS: PULSE 92; RESP 18
[2022-01-19 08:10] VITALS: BP 161/101; PULSE 100; RESP 18; TEMP 36.7; O2SAT 98
[2022-01-19] MEDS: POTASSIUM CHLORIDE 10 MEQ CAPSULE ER PO (08:55)
[2022-01-19 08:56] VITALS: TEMP 36.7
[2022-01-19] MEDS: VANCOMYCIN 125 MG CAPSULE PO ×4 (08:56→20:47)
[2022-01-19] MEDS: MAGNESIUM OXIDE 400 MG TABLET PO (08:56)
[2022-01-19] MEDS: ACETAMINOPHEN 325 MG TABLET 650 MG PO ×4 (08:56→20:47)
[2022-01-19] MEDS: SPIRONOLACTONE 25 MG TABLET PO (08:56)
[2022-01-19] MEDS: SERTRALINE 50 MG TABLET 25 MG PO (08:56)
[2022-01-19] MEDS: dilTIAZem 240 MG CAP (CD) PO (08:56)
[2022-01-19] MEDS: THIAMINE 100 MG TABLET PO (08:56)
[2022-01-19] MEDS: RIVAROXABAN 10 MG TABLET 20 MG PO (08:57)
--- NOTE | 2022-01-19 12:11 | PC.SOCIAL ---
Messages left again for [facility] with Sita in billing and Adrienne in admissions. [facility] cannot accept pt. as they are out of network with his insurance. Left a message again with them inquiring if they would accept pt. with pending MA. Also left a message with [facility] if they would accept pt. with a pending MA. Mariya Rajput said it is up to pt.'s daughter if she wants pt. to return home. She had concerns if the home had been cleaned yet. Pt. is now indepedent with all cares and does not need therapies in a SNF. Updated pt.'s daughter Mei @[phone] that pt. si not meeting criteria for a SNF with therapies anymore, and that pt. is more an AL level or home care. Pt. cannot go to an AL without MA. Mei is still hoping pt can discharge to a SNF until he get's MA and can move to an AL. She understands that pt. is medically ready for discharge and that pt. may need to discharge home with home in place. security services specialist will continue to work on discharge planning needs.
--- NOTE | 2022-01-19 13:51 | P.IMPN_ITS ---
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 May benefit from chronic lactulose once this episode of C diff illness has resolved. Status: Acute (3) Rhabdomyolysis: Problem details: Resolved Status: Acute (4) Hypokalemia: Problem details: Resolved Status: Acute (5) Thrombocytopenia: Problem details: Due to alcoholic cirrhosis Status: Acute (6) Elevated troponin: Problem details: peak 0.1, asymptomatic. TTE completed 01/02: 1. Normal LV size, normal wall thickness, normal global systolic function with an estimated EF of 55 - 60%. 2. Basal inferior segment and basal septum segment are abnormal. 3. Right ventricular cavity size is mildly enlarged, global systolic RV fun ction is normal. 4. The aortic valve is trileaflet and sclerotic, no stenosis and no regurgitation. 5. Mildly enlarged left atrium. 6. The ascending aorta is dilated with a maximal diameter of 4.0 cm. Status: Acute (7) Atrial fibrillation with RVR: Problem details: On Diltiazem for rate control and Rivaroxaban for anticoagulation. Status: Acute (8) Tobacco abuse: Status: Acute (9) Depression: Status: Acute (10) C. difficile diarrhea: Problem details: 10 day oral vancomycin 125 mg QID initiated 01/14/2022. Diarrhea perhaps a little worse today. Continue to monitor. Status: Acute (11) Difficulty agreeing with care plan: Problem details: Daughter has temporary emergency guardianship through the court due to patient's inability to make safe health care decisions. Status: Acute (12) Chronic hip pain: Problem details: Now on acetaminophen 650 mg 4 times daily Status: Acute (13) Hypertension: Problem details: Blood pressure improved today on spironolactone. Continue to monitor blood pressure and electrolytes. Status: Acute Plan Continue to work on safe plan for disposition. Time Spent With Patient Total time spent: Total time spent today is 25 minutes, 15 minutes in discussion with patient and other providers about disposition. Subjective Date Seen: 01/19/22 Interval history: 67-year-old male seen in followup of hospitalization for a fall at home and difficulty caring for himself and C diff infection. He continues to be doing well here in the hospital. His diarrhea is better today. He reports no concerns other than his desire to go home. My understanding is that his daughter has been given emergency guardianship due to concerns about his safety at home. I spoke with the patient about this. He is at risk for trouble if he resumes abusing alcohol. He is adamant that he will not let that happen. In his current state here in the hospital he is able to care for himself without significant mental, psychiatric or physical disabilities. Exam Narrative: Exam Narrative: He is alert and appears in no distress. Speech is normal. He is oriented to his circumstances. Breathing is unlabored. Abdomen is soft without tenderness. Mood and affect are appropriate and congruent. Const: Vital Signs, click to edit/add: Vital Signs - 24 hr 01/18/22 17:02 01/18/22 17:05 01/19/22 08:08 Temperature 97.3 F L Pulse Rate [Left R adial] 71 71 92 Respiratory Rate 18 18 18 Blood Pressure [Ri ght Arm] 155/82 H Pulse Oximetry 92 Oxygen Delivery Me thod Room Air Oxygen Flow Rate 0 01/19/22 08:10 01/19/22 08:56 Temperature 98.0 F 98.0 F Pulse Rate [Left R adial] 100 Respiratory Rate 18 Blood Pressure [Ri ght Arm] 161/101 H Pulse Oximetry 98 Oxygen Delivery Me thod Room Air Oxygen Flow Rate 0 Documenting provider has reviewed patient's vital signs: yes
[2022-01-19 15:20] VITALS: PULSE 100; RESP 18
--- NOTE | 2022-01-19 16:27 | PC.SOCIAL ---
Addendum entered by Jayna Martinez BOAT DOCK OPERATOR 01/19/22 17:24: Called [facility] (incorrectly noted as [facility] in previous note) as requested by daughter, , and spoke with Mariela, who was aware dtr had called but stated dtr did not inform facility pt is Medical Assistance pending. Mariela states this facility (and no other assisted living facilities that she is aware of) will accept pt's as medical assistance pending. This facility is not an option for placement for this patient. Original Note: Spoke again with pt.'s daughter Mei who states would like to pursue memory care assisted living for her dad. She spoke to [facility] part of [facility] at [phone], and they have openings. Pt's information has been sent to assess. Mei talked to her transactional attorney and the [facility] Worker, Mariya Rajput again and strongly feels pt. cannot discharge home to his sig. other's care. She is aware pt. is medically stable and may need to discharge home with home care in place if AL cannot accept.
--- NOTE | 2022-01-19 18:51 | PC.NURSE ---
End of Shift:? Pt is pleasant. mo behaviors. he declined a shower. OT worked with him pain is 11/21 he got po Tylenol.. ? No SL.? he is up ab teo with a walker in the room. . he is eating, drinking and voiding. he had 3 looses BMS today. he takes pills with no problems.
[2022-01-19] MEDS: OMEPRAZOLE 20 MG CAPSULE DR PO (20:47)
[2022-01-19 20:56] VITALS: BP 143/80; PULSE 82; RESP 16; TEMP 35.7; O2SAT 94
--- NOTE | 2022-01-20 09:23 | P.DS_ITS ---
DS: Providers Provider Date Seen: 01/21/22 Date of admission: 01/01/22 18:09 Primary care physician: Not a Local Provider Admitting Clinician: Ayden Cook MD Attending Physician on discharge: Ayden Cook MD Date of Discharge: 01/21/22 DS: Diagnosis Discharge Diagnosis (1) Alcohol abuse: Status: Acute Problem details: Alcohol abuse led to weakness and fall leading to hospitalization. (2) Chronic hip pain: Status: Acute Problem details: Now on acetaminophen 650 mg 4 times daily. (3) C. difficile diarrhea: Status: Acute Problem details: 10 day oral vancomycin 125 mg QID initiated 01/14/2022. No recent antibiotic exposure (4) Rhabdomyolysis: Status: Acute Problem details: Resolved. Secondary to lying on the floor for over 2 days. (5) Elevated troponin: Status: Acute Problem details: peak 0.1, asymptomatic. TTE completed 01/02: 1. Normal LV size, normal wall thickness, normal global systolic function with an estimated EF of 55 - 60%. 2. Basal inferior segment and basal septum segment are abnormal. 3. Right ventricular cavity size is mildly enlarged, global systolic RV function is normal. 4. The aortic valve is trileaflet and sclerotic, no stenosis and no regurgitation. 5. Mildly enlarged left atrium. 6. The ascending aorta is dilated with a maximal diameter of 4.0 cm. (6) Alcohol withdrawal: Status: Acute Problem details: Patient had alcohol withdrawal symptoms developed the 1st 1-2 days of his hospital stay and resolved by the 3rd day. DS: Summary Hospital Course Hospital Course: 67-year-old male admitted to the hospital after a fall at home. Two and half days prior to admission he had fallen at home and was unable to get up. He stayed on the floor for that 2 and half days and finally was brought to the emergency department. His girlfriend was with him taking care of him while he was on the floor. His fall and weakness was thought secondary to alcohol abuse. He had mild rhabdomyolysis identified at the time of admission. There was no other serious illness or injury identified at that time. On the 2nd day in the hospital he had a Baldwin to score of 19/30. 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 He was also found to be quite weak and unstable on his feet. It was felt that he was unsafe to go home. Process of arranging guardianship was initiated and his daughter was assigned emergency guardianship at that time. Over the subsequent several days in a hospital he has returned back to baseline. His Baldwin was repeated yesterday and he scored 24/30 indicating only mild impairment. For the last week he has been independent in the room requiring no assistive device to ambulate. Said no issues with being unsteady or falling. He did have diarrhea during his hospital stay. He had a positive C diff tox test. The cause of this was uncertain as he had not been treated with antibiotics. Over the last several days I have observed the patient to function very well. Mild cognitive impairment noted but has not interfered with his ability to cooperate with the staff, communicate with me, or have a discussion about his health and safety. For the last week there has been no treatment for him other than oral vancomycin for his C diff infection. He is not needing physical or occupational therapy, he has had normal vital signs except for elevated blood pressure, there have been no behavioral issues. He has been able to provide self-care in all regards. It is my assessment that the patient is currently able to care for himself and does not require senior living facility or assisted living. I am concerned that he will return to drinking alcohol and have recurrent problems with his health as a result. Patient is committed to stopping drinking. It remains to be seen how well he will manage living independently. If he continues to have serious problems with alcohol abuse this issue of independence may need to be revisited. I discussed patient's progress with his daughter. Specifically noted concerns about his debility and poor mental status on admission and how that has significantly improved. We talked about concerns about ongoing alcohol abuse and benefits of alcohol abuse treatment. She has appealed his discharge with the hope that alternative arrangements can be made. Our social worker palliative care staff of been involved with discussing options with her. Currently there are no options that we have identified. Possibly will get outpatient treatment, which the patient is agreeable to. Status at Discharge Functional status at discharge: independent ambulation Overall status at discharge: patient is back to baseline Time Spent with Patient Time attestation: Total time spent providing and/or coordinating discharge services: 45 minutes Exam Narrative: Exam Narrative: He is alert and in no distress. He is cooperative. Breathing is unlabored. He is ambulating independently in the room. Const: Vital Signs, click to edit/add: Vital Signs - 24 hr 01/19/22 15:20 01/19/22 20:56 Temperature 96.3 F L Pulse Rate [Left R adial] 100 82 Respiratory Rate 18 16 Blood Pressure [Le ft Arm] 143/80 H Pulse Oximetry 94 Oxygen Delivery Me thod Room Air Documenting provider has reviewed patient's vital signs: yes Discharge Plan Discharge Disposition: Home, Self-Care Date of Admission: 01/01/22 18:09 Attending Provider on Discharge: Meredith Martinez Primary Care Provider: Provider,Not a Local Condition: Improved Anticipated Discharge Date/Time: 01/22/22 13:00 Discharge Medications: New acetaminophen 325 mg Tablet 650 mg PO QID PRN (Reason: pain) Qty: 100 0RF diltiazem HCl 240 mg Capsule,Extended Release 24hr 240 mg PO DAILY Qty: 30 0RF magnesium oxide 400 mg (241.3 mg magnesium) Tablet 400 mg PO DAILY Qty: 30 0RF spironolactone 25 mg Tablet 25 mg PO DAILY Qty: 30 0RF vancomycin 125 mg Capsule 125 mg PO QID Qty: 20 0RF thiamine mononitrate (vit B1) [Vitamin B-1 (mononitrate)] 100 mg Tablet 100 mg PO DAILY Qty: 30 0RF sertraline 50 mg Tablet 25 mg PO DAILY Qty: 30 0RF melatonin 3 mg Tablet 3 mg PO HS PRN (Reason: Insomnia) Qty: 30 0RF Nicotrol 10 mg Cartridge 10 mg inhalation Q1H PRNQty: 168 0RF rivaroxaban 20 mg tablet 20 mg PO QPM Qty: 30 2RF Rx Instructions: must administer with evening meal potassium chloride 10 mEq Capsule, Extended Release 10 meq PO DAILY Qty: 30 0RF Continued trazodone 50 mg tablet 25 - 50 mg PO HS PRN (Reason: insomnia) Label Comments: TAKE ONE OR TWO TABLETS BY MOUTH AT BEDTIME omeprazole 20 mg tablet,delayed release (DR/EC) 20 mg PO DAILY diclofenac sodium [Voltaren Arthritis Pain] 1 % gel 2 g topical QID PRN Rx Instructions: apply to single elbow, wrist or hand; for hand includes palm/fingers/back of hand Discontinued amlodipine 10 mg tablet 10 mg PO DAILY Label Comments: TAKE ONE TABLET BY MOUTH ONE TIME DAILY cyclobenzaprine 10 mg tablet 10 mg PO TID PRN Label Comments: TAKE ONE TABLET BY MOUTH THREE TIMES DAILY NEEDED FOR SPASMS Discharge Orders: Discharge Order (Routine); Ordered 01/20/22 Ordered By: Juan Nathan Patient Education: Spironolactone (By mouth), Diltiazem (By mouth), Acetaminophen (By mouth), Potassium Chloride (By mouth), Thiamine (By mouth), Sertraline (By mouth), Vancomycin (By mouth), Nicotine (By breathing), Magnesium Oxide (By mouth), Melatonin (By mouth), Rivaroxaban (By mouth), A-fib (Atrial Fibrillation) (DC), C. Diff (Clostridioides Difficile) Infection (DC), Alcohol Use Disorder (DC) Activity Restrictions/Additional Instructions: See your doctor next week to recheck your blood pressure, your potassium, your C diff diarrhea and your atrial fibrillation Activity Level: Activity as Tolerated Discharge Diet: Regular Follow Up Appointments: Zeyad Lynn MD [Staff Physician] - 01/31/22 11:15 am (Follow up with at [facility]) Provider,Not a Local [Primary Care Provider] - Forms: [employer] Info Instructions
[2022-01-20] MEDS: MAGNESIUM OXIDE 400 MG TABLET PO (09:25)
[2022-01-20] MEDS: POTASSIUM CHLORIDE 10 MEQ CAPSULE ER PO (09:25)
[2022-01-20] MEDS: dilTIAZem 240 MG CAP (CD) PO (09:25)
[2022-01-20] MEDS: THIAMINE 100 MG TABLET PO (09:26)
[2022-01-20] MEDS: ACETAMINOPHEN 325 MG TABLET 650 MG PO ×4 (09:26→21:29)
[2022-01-20] MEDS: SERTRALINE 50 MG TABLET 25 MG PO (09:26)
[2022-01-20] MEDS: SPIRONOLACTONE 25 MG TABLET PO (09:26)
[2022-01-20] MEDS: VANCOMYCIN 125 MG CAPSULE PO ×4 (09:26→21:30)
[2022-01-20] MEDS: RIVAROXABAN 10 MG TABLET 20 MG PO (09:26)
[2022-01-20 09:29] VITALS: PULSE 96; RESP 16
[2022-01-20 09:30] VITALS: BP 146/100; PULSE 96; RESP 16; TEMP 36.7; O2SAT 92
[2022-01-20] MEDS: LOPERAMIDE HCL 2 MG CAPSULE PO (09:34)
--- NOTE | 2022-01-20 10:38 | PC.SOCIAL ---
Discharge plan: Spoke with Flora goldberg by phone. Dtr requested community mental health social worker look for a substance treatment facility for pt to go to from the hospital. Dtr states pt was agreeable to considering this option. Dtr provided substance treatment facilities in order of preference 1. [facility] in [place] [phone], [facility] in [place] and [facility] in [place]. Dtr gave permission for community mental health social worker to contact these facilties and to provide any medical information from his hospital staty that will be requested for evaluation for admit. Explained to dtr that admission to substance treatment from a hospital stay is rare since there is generally a waiting list and a process for insurance to evaluate need for treatment before authorization is provided. Called [facility] and spoke with Dasia in admitting who dtr has already spoken with. Dasia confirmed she is looking into whether or not pt's insurance covers substance treatment and does into need any medical information until she finds out about insurance coverage. Provided Dasia with social workers phone number to call back when she receives this information from insurance or if she needs additional information from the hospital.Dasia confirmed that as part of the admission evaluation, pt will need to be agreeable to treatment even though he has a guardian. When speaking with dtr by phone, shared that pt is being discharged from the hospital today. Shared information on the Important Message from Medicare and offered to email that to dtr. Dtr requested it be emailed and provided her email address. Dtr requested this be emailed without secure email option and this was sent. Dtr states she is aware of Medicare appeal process and has no questions at this time. channel worker to follow up as needed.
--- NOTE | 2022-01-20 12:45 | PC.SOCIAL ---
Discharge plan: Spoke with [facility] and received call back from dtr Flora, stating pt's insurance is not contracted with any in-pt substance treatment facilities except for [facility]. Dtr requested social secretary request evaluation for this program. Called [facility] [phone] and spoke with Ameena who stated their program is not contracted with [facility] or any Medicare managed plan. She states [facility] is contracted and sometimes this is confusing to families as their program is not. Called back to dtr and informed her of this. Flora states she will contact his health insurance and request a list of out-pt substance treatment options. area field worker to follow up as needed.
--- NOTE | 2022-01-20 14:22 | PC.SOCIAL ---
Received a phone call from Yane in Admissions at [facility]. [facility] is declining admission for pt due to not taking MA pending insurance at this time.
--- NOTE | 2022-01-20 15:01 | P.IMPN_ITS ---
Progress Note: A&P Assessment and plan (1) Alcohol abuse: Problem details: Alcohol abuse led to weakness and fall leading to hospitalization. Status: Acute (2) Chronic hip pain: Problem details: Now on acetaminophen 650 mg 4 times daily. Status: Acute (3) C. difficile diarrhea: Problem details: 10 day oral vancomycin 125 mg QID initiated 01/14/2022. No recent antibiotic exposure Status: Acute (4) Rhabdomyolysis: Problem details: Resolved. Secondary to lying on the floor for over 2 days. Status: Acute (5) Elevated troponin: Problem details: peak 0.1, asymptomatic. TTE completed 01/02: 1. Normal LV size, normal wall thickness, normal global systolic function with an estimated EF of 55 - 60%. 2. Basal inferior segment and basal septum segment are abnormal. 3. Right ventricular cavity size is mildly enlarged, global systolic RV function is normal. 4. The aortic valve is trileaflet and sclerotic, no stenosis and no regurgitation. 5. Mildly enlarged left atrium. 6. The ascending aorta is dilated with a maximal diameter of 4.0 cm. Status: Acute (6) Alcohol withdrawal: Problem details: Patient had alcohol withdrawal symptoms developed the 2nd day of his hospital stay and resolved by the 3rd day. Status: Acute (7) Cognitive impairment: Problem details: On admission there was concern of cognitive impairment. At that time he was going through alcohol withdrawal and scored a Bremond of 19/30. Yesterday he scored a Bremond of 24/30. There is likely some mild cognitive impairment and this may be related to his alcohol abuse. Status: Acute Plan Plan was to discharge to home today but his daughter is appealing this. We are looking at options for treatment of alcoholism or other successful discharge plan. I spoke with her on the phone about this as well. Time Spent With Patient Total time spent: Total time spent today is 50 minutes, 30 minutes in coordination of care discussing with patient and daughter and social media marketing manager a discharge plan Subjective Date Seen: 01/20/22 Interval history: Patient seen in followup of hospitalization for complications of alcohol abuse. He continues to do well. He is having a small amount of diarrhea. Currently continuing treatment with vancomycin for C diff. he otherwise reports no other health concerns. He is anxious to return home. We had a long discussion today about how alcohol abuse is a big problem for him and will likely lead to recurrent hospitalizations if he can not maintain sobriety. Exam Narrative: Exam Narrative: He is alert and appears in no distress. Mood and affect are appropriate he is able to carry on a conversation and discuss legal issues related to his guardianship, options for treatment of alcoholism and his ability to take care of himself on discharge. Const: Vital Signs, click to edit/add: Vital Signs - 24 hr 01/19/22 15:20 01/19/22 20:56 01/20/22 09:29 Temperature 96.3 F L Pulse Rate [Left R adial] 100 82 96 Respiratory Rate 18 16 16 Blood Pressure [Le ft Arm] 143/80 H Pulse Oximetry 94 Oxygen Delivery Me thod Room Air Oxygen Flow Rate 01/20/22 09:30 Temperature 98.0 F Pulse Rate [Left R adial] 96 Respiratory Rate 16 Blood Pressure [Le ft Arm] 146/100 H Pulse Oximetry 92 Oxygen Delivery Me thod Room Air Oxygen Flow Rate 0 Documenting provider has reviewed patient's vital signs: yes
[2022-01-20 16:11] VITALS: PULSE 96; RESP 16
--- NOTE | 2022-01-20 16:57 | PC.SOCIAL ---
Dischagre planning: Received call back from [facility] stating they do have in-pt substance treatment beds available. Spoke with Yessica, in the [place] office (main office for the behavioral health group that includes [facility]. She stated they are able to complete the required Comprehensive Health Assessment that is required to determine if someone is eligible for Behavioral Health Funds. This assessment can be done by phone and is good for 30 days. She is going to check if pt would be able to go directly to the facility from the hospital or be discharged until his Medical Assistance goes through. She will call back with this information. Called dtr to share information on [facility] and she is pleased with possibility of direct discharge from hospital to substance treatment. Dtr plans to call [facility] to discuss if there is an option for her to pay privately and be reimbursed when the Medical Assistance goes through. athletic turf worker to follow up as needed. athletic turf worker secure emailed the Detailed Information on Discharge provided by the hospital and the insurance review team to dtr, who confirmed receipt of these forms.
[2022-01-20 21:18] VITALS: BP 115/56; PULSE 78; RESP 16; TEMP 36.5; O2SAT 97
[2022-01-20] MEDS: OMEPRAZOLE 20 MG CAPSULE DR PO (21:30)
[2022-01-20] MEDS: MELATONIN 3 MG TABLET PO (21:30)
--- NOTE | 2022-01-21 05:19 | PC.NURSE ---
[id number]: Patient pleasant and cooperative with cares. Up independent in room w/walker. No concerns overnight. Appeared to rest well during noc.
[2022-01-21 07:05] LABS: Basophils Absolute Auto 0.07 K/uL (0.00-0.30); Basophils Percent Auto 0.7 % (0.0-3.0); Eosinophils Absolute Auto 0.55 K/uL (0.00-0.50); Eosinophils Percent Auto 5.2 % (0.0-7.0); Hematocrit 42.9 % (37.0-53.0); Hemoglobin* 14.3 gm/dL (13.5-17.5); Immature Granulocytes Abs Auto 0.07 K/uL (0.00-0.30); Lymphocytes Percent Auto 21.8 % (20-44); Mean Corpuscular HGB Conc 33 gm/dL (32-36); Mean Corpuscular Hemoglobin 34 pg (26-34); Mean Corpuscular Volume 101 fL (80-100); Monocytes Percent Auto 9.1 % (0.0-11.0); Neutrophils Absolute Auto 6.58 K/uL (1.7-7.0); Neutrophils Percent Auto 62.5 % (42.0-72.0); Platelet Count* 332 K/uL (140-440); RDW Coefficient of Variation % 13.1 % (11.5-15.5); Red Blood Count 4.23 m/uL (4.30-5.90); White Blood Count* 10.53 K/uL (4.50-11.00)
[2022-01-21 07:13] LABS: Slide Review Reflex No
[2022-01-21 07:34] LABS: Chloride* 103 mmol/L (96-114); Potassium* 4.3 mmol/L (3.6-5.1); Sodium* 138 mmol/L (135-149)
[2022-01-21 07:36] LABS: Creatinine* 0.7 mg/dL (0.5-1.5); Est. Creatinine Clearance* 76.35; Estimated Glomerular Filt Rate 101 ml/min
[2022-01-21 07:37] LABS: Blood Urea Nitrogen* 22 mg/dL (7-30); Calcium* 8.8 mg/dL (8.4-10.6); Carbon Dioxide* 28 mmol/L (20-32); Glucose* 103 mg/dL (60-115)
[2022-01-21] MEDS: RIVAROXABAN 10 MG TABLET 20 MG PO (08:44)
[2022-01-21] MEDS: dilTIAZem 240 MG CAP (CD) PO (08:44)
[2022-01-21] MEDS: VANCOMYCIN 125 MG CAPSULE PO ×4 (08:44→21:01)
[2022-01-21] MEDS: SERTRALINE 50 MG TABLET 25 MG PO (08:44)
[2022-01-21] MEDS: POTASSIUM CHLORIDE 10 MEQ CAPSULE ER PO (08:44)
[2022-01-21] MEDS: MAGNESIUM OXIDE 400 MG TABLET PO (08:45)
[2022-01-21] MEDS: SPIRONOLACTONE 25 MG TABLET PO (08:45)
[2022-01-21] MEDS: ACETAMINOPHEN 325 MG TABLET 650 MG PO ×4 (08:45→21:00)
[2022-01-21] MEDS: THIAMINE 100 MG TABLET PO (08:45)
[2022-01-21 08:52] VITALS: BP 143/77; PULSE 87; RESP 18; TEMP 36.9; O2SAT 95
--- NOTE | 2022-01-21 09:24 | NUTR.NU ---
Nutrition Update/LOS note: Patient with LOS day 1 -- admitted for fall with Rhabdo., alcoholism, and Wernicke-Korsakoff syndrome. Unable to care for self. Patient's daughter applied for guardianship. Currently waiting for placement. Current diet is regular. Meal intakes have been adequate, mainly 100% since admit with 1 snack noted by nursing at 100% daily. Current weight 177 lbs, height 71 inches; BMI is normal at 24.8 kg/m2. With meal intakes adequate, no nutrition interventions at this time. RDN will continue to monitor and follow-up prn.
--- NOTE | 2022-01-21 10:51 | P.IMPN_ITS ---
Progress Note: A&P Assessment and plan (1) Alcohol abuse: Problem details: Alcohol abuse led to weakness and fall leading to hospitalization. Status: Acute (2) Chronic hip pain: Problem details: Now on acetaminophen 650 mg 4 times daily. Status: Acute (3) C. difficile diarrhea: Problem details: 10 day oral vancomycin 125 mg QID initiated 01/14/2022. No recent antibiotic exposure Status: Acute (4) Rhabdomyolysis: Problem details: Resolved. Secondary to lying on the floor for over 2 days. Status: Acute (5) Elevated troponin: Problem details: peak 0.1, asymptomatic. TTE completed 01/02: 1. Normal LV size, normal wall thickness, normal global systolic function with an estimated EF of 55 - 60%. 2. Basal inferior segment and basal septum segment are abnormal. 3. Right ventricular cavity size is mildly enlarged, global systolic RV function is normal. 4. The aortic valve is trileaflet and sclerotic, no stenosis and no regurgitation. 5. Mildly enlarged left atrium. 6. The ascending aorta is dilated with a maximal diameter of 4.0 cm. Status: Acute (6) Alcohol withdrawal: Problem details: Patient had alcohol withdrawal symptoms developed the 1st 1-2 days of his hospital stay and resolved by the 3rd day. Status: Acute (7) Atrial fibrillation with RVR: Problem details: On Diltiazem for rate control and Rivaroxaban for anticoagulation. Status: Acute Plan Making arrangements for outpatient treatment for alcohol abuse. Time Spent With Patient Total time spent: Total time spent today is 30 minutes, 25 minutes in coordination of care discussing with patient and other providers plan for disposition Subjective Date Seen: 01/21/22 Interval history: 67-year-old male seen in followup of hospitalization for complications of alcohol abuse, C diff infection and atrial fibrillation. He reports that he has had 2 diarrhea stools in the last day. Eating normally. Anxious to go home Exam Narrative: Exam Narrative: He is alert and in no distress. Pleasant and cooperative. Breathing is unlabored. Abdomen is soft without tenderness. No significant edema Const: Vital Signs, click to edit/add: Vital Signs - 24 hr 01/20/22 16:11 01/20/22 21:18 01/21/22 08:52 Temperature 97.7 F Pulse Rate [Left R adial] 96 78 87 Respiratory Rate 16 16 18 Blood Pressure [Le ft Arm] 115/56 L Pulse Oximetry 97 Oxygen Delivery Me thod Room Air Oxygen Flow Rate 0 01/21/22 08:52 Temperature 98.5 F Pulse Rate [Left R adial] 87 Respiratory Rate 18 Blood Pressure [Le ft Arm] 143/77 H Pulse Oximetry 95 Oxygen Delivery Me thod Room Air Oxygen Flow Rate 0 Labs Labs: Laboratory Results - last 24 hr 01/21/22 01/21/22 06:10 06:10 WBC 10.53 RBC 4.23 L Hgb 14.3 Hct 42.9 MCV 101 H MCH 34 MCHC 33 RDW Coeff of Miko 13.1 Plt Count 332 Neut % (Auto) 62.5 Lymph % (Auto) 21.8 [place] % (Auto) 9.1 Eos % (Auto) 5.2 Baso % (Auto) 0.7 Neut # (Auto) 6.58 Lymph # (Auto) 2.30 [place] # (Auto) 1.00 H Eos # (Auto) 0.55 H Baso # (Auto) 0.07 Abs Immat Gran (auto) 0.07 Sodium 138 Potassium 4.3 Chloride 103 Carbon Dioxide 28 BUN 22 Creatinine 0.7 Estimated Creat Clear 76.35 Estimated GFR 101 Glucose 103 Calcium 8.8
[2022-01-21 12:31] VITALS: TEMP 36.8
--- NOTE | 2022-01-21 13:01 | PC.NURSE ---
End of Shift:? Pt is pleasant.? no behaviors or problems. ? he declined a shower.? ? pain is 6/10? he id getting po Tylenol.. ? No SL.? ? he is up ab teo with a walker in the room.? . he is eating, drinking and voiding. he had 2 looses BMS today.? he takes pills with no problems. ?
[2022-01-21 15:00] VITALS: PULSE 79; RESP 18
--- NOTE | 2022-01-21 15:19 | PC.SOCIAL ---
Discharge plan: Received call back from [facility] admissions rn, stating pt is not eligible for this program based on his current insurance status. She is calling dtr directly to inform her of this. Received call from [facility] lead clinical research coordinator, Sarah, stating she is available to the daughter to look into substance treatment options. Called dtr and provided her with information on the [facility] website to locate substance treatment options and also provided name and phone number of [facility] principal planner to contact regarding treatment options. Dtr confirms she has not yet heard a decision on the Medicare appeal. Dtr is expecting to receive confirmation of decision on appeal over the weekend and is aware she can reach out to nursing with any questions regarding d/c.
--- NOTE | 2022-01-21 16:21 | PC.SOCIAL ---
Social work: Received call from Thais in Utilization Review, stating that [employer] has made their decision on the discharge appeal and determined ohysician review agrees with termination of hospital services. Beneficiary laibility starts 01/22/22. workers compensation administrator called dtr/guardian, Mei, who confirmed she has already heard from Doris. Mei states she has located substance treatment facilities in network for pt's [facility]. and is contacting them to see about admission for substance treatment when pt is discharged.
--- NOTE | 2022-01-21 16:53 | PC.NURSE ---
Received a voicemail from [employer] regarding appeal. Message states that the physician review agrees with termination of care. Liability date startes 01/22/22. Hospitalist aware. Guardian needs to be contacted to determine patient's disposition.
--- NOTE | 2022-01-21 17:34 | PC.SOCIAL ---
Discharge plan: Called dtr/guardian Mei to confirm discharge plans for tomorrow. Mei ([phone]) states she can be called tomorrow prior to discharge with any discharge instructions or if there are any forms that need her verbal approval. Dtr states that most likely, pt's girlfriend Lexus will be picking him up. However, this should be confirmed with Mei tomorrow. Mei has previosuly requested hospital not contact Lexus or provide Lexus with any information on pt's condition or needs. Mei is still looking for substance treatment programs and may contact RN tomorrow to request information be faxed to programs she is hoping to get him into in the future. DISCHARGE PLAN: RN to call dtr/ guarditorin Hurley ([phone]) tomorrow before noon with discharge paperwork and instructions. Dtr will inform nurse of transportation arrangements for pt to return to his home. Dtr is not planning to travel to [place] for discharge.
[2022-01-21] MEDS: OMEPRAZOLE 20 MG CAPSULE DR PO (21:00)
[2022-01-21 23:00] VITALS: BP 145/74; PULSE 79; RESP 18; RESP 20; TEMP 36.6; O2SAT 99
--- NOTE | 2022-01-22 06:15 | PC.NURSE ---
1507: Indep in room. Pt compliant with cares. Pt states his loose stools are ?resolving? and becoming more formed. No c/o abd pain. ?
[2022-01-22 07:00] VITALS: PULSE 66; RESP 18
[2022-01-22] MEDS: ACETAMINOPHEN 325 MG TABLET 650 MG PO ×2 (08:57→13:02)
[2022-01-22] MEDS: SPIRONOLACTONE 25 MG TABLET PO (08:58)
[2022-01-22] MEDS: RIVAROXABAN 10 MG TABLET 20 MG PO (08:58)
[2022-01-22] MEDS: POTASSIUM CHLORIDE 10 MEQ CAPSULE ER PO (08:58)
[2022-01-22] MEDS: MAGNESIUM OXIDE 400 MG TABLET PO (08:58)
[2022-01-22] MEDS: SERTRALINE 50 MG TABLET 25 MG PO (08:58)
[2022-01-22] MEDS: dilTIAZem 240 MG CAP (CD) PO (08:58)
[2022-01-22] MEDS: THIAMINE 100 MG TABLET PO (08:59)
[2022-01-22] MEDS: VANCOMYCIN 125 MG CAPSULE PO ×2 (08:59→13:02)
[2022-01-22 09:02] VITALS: BP 138/73; PULSE 66; RESP 18; TEMP 36.4; O2SAT 98
--- NOTE | 2022-01-22 12:14 | PC.NURSE ---
Discharge instructions emailed to emergency guardian, Mei Lozano, per her request.
--- NOTE | 2022-01-22 13:15 | PC.NURSE ---
Discharge: Patient pleasant and cooperative. Patient vitally stable, lungs clear, BS WNL, No IV. Patient had 1 soft stool, and urinating. Discharge info reviewed with patient's daughter over the phone. Discharge form and belongings sheet signed by patient, and education reviewed. Truck Body Repairer also talked to patient's partner at car side regarding medications and prescription for walker. Patient discharged at 1304 by wheelchair accompanied by aids, with his belongings. Patient went home picked up by partner.
== END 2022-01-22 13:04 | disposition home or self-care (01) | DRG 897 ==
LOC: ED 15:06 → MEDSURG 01-02 19:40
PROVIDERS: Family Medicine; Internal Medicine; Admitting Provider Internal Medicine; Emergency Provider Emergency Medicine; Visit Provider Internal Medicine
DX: F10.26 Alcohol dependence with alcohol-induced persisting amnestic disorder (principal); M87.852 Other osteonecrosis, left femur; M62.82 Rhabdomyolysis; A04.72 Enterocolitis due to Clostridium difficile, not specified as recurrent; K76.6 Portal hypertension; K70.30 Alcoholic cirrhosis of liver without ascites; E86.0 Dehydration; F10.239 Alcohol dependence with withdrawal, unspecified; F10.221 Alcohol dependence with intoxication delirium; E87.6 Hypokalemia; R25.1 Tremor, unspecified; R31.9 Hematuria, unspecified; I48.91 Unspecified atrial fibrillation; I10 Essential (primary) hypertension; D69.6 Thrombocytopenia, unspecified; L89.152 Pressure ulcer of sacral region, stage 2; R26.0 Ataxic gait; F32.A Depression, unspecified; M25.552 Pain in left hip; G89.29 Other chronic pain; F17.210 Nicotine dependence, cigarettes, uncomplicated; W08.XXXA Fall from other furniture, initial encounter; Y92.009 Unspecified place in unspecified non-institutional (private) residence as the place of occurrence of the external cause; L98.8 Other specified disorders of the skin and subcutaneous tissue
CPT/HCPCS: 36415; 71045; 73502; 73700; 80048; 80053; 80076; 81003; 81015; 82040; 82077; 82550; 83036; 83735; 83880; 84132; 84443; 84450; 84484; 85025; 85027; 85610; 86140; 86592; 87493; 87635; 90715; 93005; 93306; 94761; 97110; 97116; 97163; 97166; 97530; 97535; 99285; A9270; G0378; J1940; J2060; J3411; J3490; J7030; J7050

== ENCOUNTER 2022-03-25 14:21 | Outpatient (RCR) | payer MEDICARE, SELFPAY | END 2022-12-01 23:59 | disposition home or self-care (01) | PROVIDERS: PCP Family Medicine; Visit Provider Family Medicine | DX: F10.96 Alcohol use, unspecified with alcohol-induced persisting amnestic disorder (principal); Z51.89 Encounter for other specified aftercare | CPT/HCPCS: 97165 ==

== ENCOUNTER 2024-06-18 13:35 | Outpatient (CLI) | payer MEDICARE, SELFPAY | END 2024-06-18 13:36 | disposition home or self-care (01) | LOC: WOUND 13:37 | PROVIDERS: PCP Family Medicine; Visit Provider Nurse Practitioner Family | DX: I70.238 Atherosclerosis of native arteries of right leg with ulceration of other part of lower leg (principal); L97.818 Non-pressure chronic ulcer of other part of right lower leg with other specified severity; I70.244 Atherosclerosis of native arteries of left leg with ulceration of heel and midfoot; L97.428 Non-pressure chronic ulcer of left heel and midfoot with other specified severity; I70.235 Atherosclerosis of native arteries of right leg with ulceration of other part of foot; L97.518 Non-pressure chronic ulcer of other part of right foot with other specified severity; F17.218 Nicotine dependence, cigarettes, with other nicotine-induced disorders; Z71.6 Tobacco abuse counseling | CPT/HCPCS: 87070; 87186; 97597; 97602; G0463 ==

== ENCOUNTER 2024-06-19 12:58 | Outpatient (CLI) | payer MEDICARE, SELFPAY ==
--- NOTE | 2024-06-19 13:00 | CRLHL7_ITS ---
For Patients: As a result of the Century Cures Act, medical imaging exams and procedure reports are released immediately into your electronic medical record. You may view this report before your referring provider. If you have questions, please contact your health care provider. Indication: Known PAD. Non-healing ulcers. Comparison: None Technique: Routine duplex arterial examination of bilateral lower extremities including 2D and spectral analysis, and color Doppler imaging was performed. In addition, resting ankle-brachial indices were obtained. Findings: Right lower extremity: Multiphasic waveforms are present within the common, deep and proximal femoral arteries. Monophasic waveforms present elsewhere. Incomplete evaluation of the peroneal artery due to edema. Velocities are not elevated. Unable to perform CANDI due to edema. Left lower extremity: Multiphasic waveforms are present within the common, deep and proximal femoral arteries. Monophasic waveforms present elsewhere. Incomplete evaluation of the peroneal artery due to edema. Velocities are not elevated. Unable to perform CANDI due to edema. Impression: Difficult exam due to edema. No evidence of focal stenosis. Dictated by Oumar Hernandez MD @ 06/19/2024 3:31:45 PM (Electronically Signed)
== END 2024-06-19 12:59 | disposition home or self-care (01) ==
LOC: US 12:59
PROVIDERS: PCP Family Medicine; Visit Provider Nurse Practitioner Family
DX: I70.244 Atherosclerosis of native arteries of left leg with ulceration of heel and midfoot (principal); I70.234 Atherosclerosis of native arteries of right leg with ulceration of heel and midfoot
CPT/HCPCS: 93926

== ENCOUNTER 2024-06-25 13:26 | Outpatient (CLI) | payer MEDICARE, SELFPAY | END 2024-06-25 13:27 | disposition home or self-care (01) | LOC: WOUND 13:26 | PROVIDERS: PCP Family Medicine; Visit Provider Nurse Practitioner Family | DX: I70.233 Atherosclerosis of native arteries of right leg with ulceration of ankle (principal); L97.318 Non-pressure chronic ulcer of right ankle with other specified severity; I70.244 Atherosclerosis of native arteries of left leg with ulceration of heel and midfoot; L97.428 Non-pressure chronic ulcer of left heel and midfoot with other specified severity; I70.235 Atherosclerosis of native arteries of right leg with ulceration of other part of foot; L97.518 Non-pressure chronic ulcer of other part of right foot with other specified severity; F17.218 Nicotine dependence, cigarettes, with other nicotine-induced disorders | CPT/HCPCS: 73650; 97597; G0463 ==

== ENCOUNTER 2024-06-25 15:12 | Outpatient (CLI) | payer MEDICARE, SELFPAY ==
--- NOTE | 2024-06-25 15:30 | CRLHL7_ITS ---
For Patients: As a result of the Cures Act, medical imaging exams and procedure reports are released immediately into your electronic medical record. You may view this report before your referring provider. If you have questions, please contact your health care provider. Indication: Osteomyelitis Technique: Two views left calcaneus Comparison: None Findings: Soft tissue swelling noted posteriorly. No soft tissue gas. No acute periostitis. No cortical destruction. No fracture. Small calcaneal spurs. Vascular calcifications. Subtalar joint maintained. Impression: No radiographic evidence of osteomyelitis. Dictated by Oumar Hernandez MD @ 06/25/2024 3:47:54 PM (Electronically Signed)
== END 2024-06-25 15:13 | disposition home or self-care (01) ==
LOC: RAD 15:12
PROVIDERS: PCP Family Medicine; Visit Provider Nurse Practitioner Family
DX: I70.244 Atherosclerosis of native arteries of left leg with ulceration of heel and midfoot (principal)
CPT/HCPCS: 73650

== ENCOUNTER 2024-06-28 13:03 | Outpatient (CLI) | payer MEDICARE, SELFPAY | END 2024-06-28 13:04 | disposition home or self-care (01) | LOC: WOUND 13:03 | PROVIDERS: PCP Family Medicine; Visit Provider Nurse Practitioner Family | DX: I70.244 Atherosclerosis of native arteries of left leg with ulceration of heel and midfoot (principal); L97.422 Non-pressure chronic ulcer of left heel and midfoot with fat layer exposed; I70.233 Atherosclerosis of native arteries of right leg with ulceration of ankle; L97.312 Non-pressure chronic ulcer of right ankle with fat layer exposed; I70.235 Atherosclerosis of native arteries of right leg with ulceration of other part of foot; L97.512 Non-pressure chronic ulcer of other part of right foot with fat layer exposed | CPT/HCPCS: G0463 ==

== ENCOUNTER 2024-07-02 13:24 | Outpatient (CLI) | payer MEDICARE, SELFPAY | END 2024-07-02 13:25 | disposition home or self-care (01) | LOC: WOUND 13:24 | PROVIDERS: PCP Family Medicine; Visit Provider Nurse Practitioner Family | DX: I70.244 Atherosclerosis of native arteries of left leg with ulceration of heel and midfoot (principal); L97.428 Non-pressure chronic ulcer of left heel and midfoot with other specified severity; I70.233 Atherosclerosis of native arteries of right leg with ulceration of ankle; L97.318 Non-pressure chronic ulcer of right ankle with other specified severity; F17.218 Nicotine dependence, cigarettes, with other nicotine-induced disorders | CPT/HCPCS: 97597 ==

== ENCOUNTER 2024-07-15 14:04 | Outpatient (CLI) | payer MEDICARE, SELFPAY | END 2024-07-15 14:05 | disposition home or self-care (01) | LOC: WOUND 14:04 | PROVIDERS: PCP Family Medicine; Visit Provider Nurse Practitioner Family | DX: I70.233 Atherosclerosis of native arteries of right leg with ulceration of ankle (principal); L97.318 Non-pressure chronic ulcer of right ankle with other specified severity; I70.244 Atherosclerosis of native arteries of left leg with ulceration of heel and midfoot; L97.428 Non-pressure chronic ulcer of left heel and midfoot with other specified severity; I70.235 Atherosclerosis of native arteries of right leg with ulceration of other part of foot; L97.518 Non-pressure chronic ulcer of other part of right foot with other specified severity; I70.245 Atherosclerosis of native arteries of left leg with ulceration of other part of foot; L97.528 Non-pressure chronic ulcer of other part of left foot with other specified severity; Z72.0 Tobacco use | CPT/HCPCS: 97597; 97602 ==

== ENCOUNTER 2024-07-22 13:57 | Outpatient (CLI) | payer MEDICARE, SELFPAY | END 2024-07-22 13:58 | disposition home or self-care (01) | LOC: WOUND 13:59 | PROVIDERS: PCP Family Medicine; Visit Provider Nurse Practitioner Family | DX: I70.233 Atherosclerosis of native arteries of right leg with ulceration of ankle (principal); L97.318 Non-pressure chronic ulcer of right ankle with other specified severity; I70.244 Atherosclerosis of native arteries of left leg with ulceration of heel and midfoot; L97.428 Non-pressure chronic ulcer of left heel and midfoot with other specified severity; I70.235 Atherosclerosis of native arteries of right leg with ulceration of other part of foot; L97.518 Non-pressure chronic ulcer of other part of right foot with other specified severity; F17.218 Nicotine dependence, cigarettes, with other nicotine-induced disorders | CPT/HCPCS: 87070; 87186; 97597; 97602; G0463 ==

== ENCOUNTER 2024-07-29 14:04 | Outpatient (CLI) | payer MEDICARE, SELFPAY | END 2024-07-29 14:05 | disposition home or self-care (01) | LOC: WOUND 14:04 | PROVIDERS: PCP Family Medicine; Visit Provider Nurse Practitioner Family | DX: I70.233 Atherosclerosis of native arteries of right leg with ulceration of ankle (principal); L97.312 Non-pressure chronic ulcer of right ankle with fat layer exposed; I70.244 Atherosclerosis of native arteries of left leg with ulceration of heel and midfoot; L97.428 Non-pressure chronic ulcer of left heel and midfoot with other specified severity; I70.235 Atherosclerosis of native arteries of right leg with ulceration of other part of foot; L97.518 Non-pressure chronic ulcer of other part of right foot with other specified severity; I70.245 Atherosclerosis of native arteries of left leg with ulceration of other part of foot; L97.528 Non-pressure chronic ulcer of other part of left foot with other specified severity; F17.218 Nicotine dependence, cigarettes, with other nicotine-induced disorders | CPT/HCPCS: 97597; 97602 ==

== ENCOUNTER 2024-08-05 14:06 | Outpatient (CLI) | payer MEDICARE, SELFPAY | END 2024-08-05 14:07 | disposition home or self-care (01) | LOC: WOUND 14:06 | PROVIDERS: PCP Family Medicine; Visit Provider Nurse Practitioner Family | DX: I70.233 Atherosclerosis of native arteries of right leg with ulceration of ankle (principal); L97.318 Non-pressure chronic ulcer of right ankle with other specified severity; I70.244 Atherosclerosis of native arteries of left leg with ulceration of heel and midfoot; L97.428 Non-pressure chronic ulcer of left heel and midfoot with other specified severity; I70.238 Atherosclerosis of native arteries of right leg with ulceration of other part of lower leg; L97.518 Non-pressure chronic ulcer of other part of right foot with other specified severity; I70.245 Atherosclerosis of native arteries of left leg with ulceration of other part of foot; L97.528 Non-pressure chronic ulcer of other part of left foot with other specified severity; S81.802A Unspecified open wound, left lower leg, initial encounter; F17.218 Nicotine dependence, cigarettes, with other nicotine-induced disorders | CPT/HCPCS: 97602; G0463 ==

== ENCOUNTER 2024-08-19 14:03 | Outpatient (CLI) | payer MEDICARE, SELFPAY | END 2024-08-19 14:04 | disposition home or self-care (01) | LOC: WOUND 14:04 | PROVIDERS: PCP Family Medicine; Visit Provider Physician Assistant Surgical | DX: I70.233 Atherosclerosis of native arteries of right leg with ulceration of ankle (principal); L97.312 Non-pressure chronic ulcer of right ankle with fat layer exposed; I70.244 Atherosclerosis of native arteries of left leg with ulceration of heel and midfoot; L97.428 Non-pressure chronic ulcer of left heel and midfoot with other specified severity; I70.235 Atherosclerosis of native arteries of right leg with ulceration of other part of foot; L97.512 Non-pressure chronic ulcer of other part of right foot with fat layer exposed; I70.245 Atherosclerosis of native arteries of left leg with ulceration of other part of foot; L97.528 Non-pressure chronic ulcer of other part of left foot with other specified severity; S81.802A Unspecified open wound, left lower leg, initial encounter; S91.102A Unspecified open wound of left great toe without damage to nail, initial encounter; F17.218 Nicotine dependence, cigarettes, with other nicotine-induced disorders | CPT/HCPCS: 11042; 11043 ==

== ENCOUNTER 2024-09-19 14:00 | Outpatient (CLI) | payer MEDICARE, SELFPAY | END 2024-09-19 14:01 | disposition home or self-care (01) | LOC: WOUND 14:00 | PROVIDERS: PCP Family Medicine; Visit Provider Nurse Practitioner Family | DX: E11.621 Type 2 diabetes mellitus with foot ulcer (principal); L97.523 Non-pressure chronic ulcer of other part of left foot with necrosis of muscle; L97.428 Non-pressure chronic ulcer of left heel and midfoot with other specified severity; L97.522 Non-pressure chronic ulcer of other part of left foot with fat layer exposed; F17.218 Nicotine dependence, cigarettes, with other nicotine-induced disorders; Z71.6 Tobacco abuse counseling | CPT/HCPCS: 97597 ==

== ENCOUNTER 2024-09-26 13:14 | Outpatient (CLI) | payer MEDICARE, SELFPAY | END 2024-09-26 13:15 | disposition home or self-care (01) | LOC: WOUND 13:14 | PROVIDERS: PCP Family Medicine; Visit Provider Nurse Practitioner Family | DX: E11.621 Type 2 diabetes mellitus with foot ulcer (principal); I70.244 Atherosclerosis of native arteries of left leg with ulceration of heel and midfoot; L97.522 Non-pressure chronic ulcer of other part of left foot with fat layer exposed; F17.218 Nicotine dependence, cigarettes, with other nicotine-induced disorders; L97.523 Non-pressure chronic ulcer of other part of left foot with necrosis of muscle | CPT/HCPCS: 97597 ==

== ENCOUNTER 2024-10-17 13:25 | Outpatient (CLI) | payer MEDICARE, SELFPAY | END 2024-10-17 13:26 | disposition home or self-care (01) | LOC: WOUND 13:25 | PROVIDERS: PCP Family Medicine; Visit Provider Nurse Practitioner Family | DX: E11.621 Type 2 diabetes mellitus with foot ulcer (principal); I70.244 Atherosclerosis of native arteries of left leg with ulceration of heel and midfoot; L97.523 Non-pressure chronic ulcer of other part of left foot with necrosis of muscle; L97.522 Non-pressure chronic ulcer of other part of left foot with fat layer exposed; F17.218 Nicotine dependence, cigarettes, with other nicotine-induced disorders | CPT/HCPCS: 97597 ==

== ENCOUNTER 2024-10-24 13:44 | Outpatient (CLI) | payer MEDICARE, SELFPAY | END 2024-10-24 13:45 | disposition home or self-care (01) | LOC: WOUND 13:44 | PROVIDERS: PCP Family Medicine; Visit Provider Nurse Practitioner Family | DX: E11.621 Type 2 diabetes mellitus with foot ulcer (principal); I70.244 Atherosclerosis of native arteries of left leg with ulceration of heel and midfoot; L97.428 Non-pressure chronic ulcer of left heel and midfoot with other specified severity; L97.528 Non-pressure chronic ulcer of other part of left foot with other specified severity; F17.218 Nicotine dependence, cigarettes, with other nicotine-induced disorders | CPT/HCPCS: 97597 ==

== ENCOUNTER 2024-11-07 13:29 | Outpatient (CLI) | payer MEDICARE, SELFPAY | END 2024-11-07 13:30 | disposition home or self-care (01) | LOC: WOUND 13:29 | PROVIDERS: PCP Family Medicine; Visit Provider Nurse Practitioner Family | DX: E11.621 Type 2 diabetes mellitus with foot ulcer (principal); L97.522 Non-pressure chronic ulcer of other part of left foot with fat layer exposed; L97.428 Non-pressure chronic ulcer of left heel and midfoot with other specified severity | CPT/HCPCS: 97597 ==